=== PATIENT | female | born 1945 | race Caucasian/White ===

== ENCOUNTER 2018-03-17 12:33 | Emergency (ER) | payer MEDICARE, BC, SELFPAY ==
[2018-03-17 13:16] VITALS: BP 149/79; PULSE 68; RESP 16; TEMP 36.6; O2SAT 97
--- NOTE | 2018-03-17 13:28 | ED.GENADUL ---
Disposition Clinical Impression: Sciatica Disposition: HOME Condition: Good Instructions: Sciatica (ED) Additional Instructions: Please take medications as directed. If you notice any worsening of your symptoms, or any new symptoms such as vomiting, diarrhea, fever, chills, shortness of breath, chest pain, numbness, weakness, or fainting , please return immediately to the emergency department for reevaluation. Please follow up with your primary care provider as soon as possible for reassessment and reevaluation. As always, it was a pleasure participating in your medical care today. Prescriptions: Acetaminophen [Tylenol Extra Strength] 1,000 mg PO Q6H 5 Days #60 tab Ibuprofen [Motrin Ib] 600 mg PO Q6H 5 Days #30 tablet Prednisone 50 mg PO DAILY #5 tablet Referrals: Jose Eaton DO [Primary Care Provider] - Medical Decision Making - Medical Decision Making This is a 72-year-old female who presents for evaluation of left buttock pain which radiates into her leg. Signs and symptoms appear consistent with sciatica. Notably reproducible on pinpoint palpation and poking over the sciatic nerve in the left buttock. She does have a mild worsening of her symptoms with a positive straight leg raise. No neurologic findings. Normal sensation, no red flags concerning for cauda equina equina syndrome, or cord compression. She demonstrates maintained strength, and intact sensation. I feel her symptoms correlate clinically well with sciatica at this time of presentation. Due to the patient having a fall 3 weeks ago which I feel is unrelated and unlikely to be the cause of her symptoms abdomen abundance of precaution we will get an x-ray of the lumbar spine, in the hips bilaterally with focus on the left hip. With no red flags noted on exam I feel that with negative imaging she can be safely discharged home with NSAIDs, short dose of steroids, and close follow-up. 4:01 PM The patient's radiology reports have returned, upon my personal review I did not know any acute fractures or significant acute abnormalities. Per virtual radiology, left hip/pelvis demonstrates unremarkable exam for age, no acute fracture or significant abnormality. X-ray of the lumbar spine demonstrates degenerative changes of the lumbar spine mild to moderate scoliosis of the mid lumbar spine with convexity to the left, diffuse degenerative disc and facet disease and lumbar spine, no focal bone destruction or acute fracture. I do feel that the patient is safe for discharge home with close follow-up with her primary care provider. We discussed red flags which returned she understands. I have extensively reviewed the treatment plan and discharge instructions with the patient. I have addressed all patient concerns at this time. The patient was made aware of what symptoms to monitor for that would warrant a return to the emergency department. Discussed the plan with the patient, they demonstrate verbal understanding and agreement with our assessment and plan at this time. History of Present Illness - General Chief complaint: Nk/Back Pain Stated complaint: UNKNOWN Time Seen by Provider: 03/17/18 13:25 - History of Present Illness Initial comments: This is a 72-year-old female who presents for evaluation of left lower leg and buttock pain. The patient states that the last 3-4 days she has had pain in her left buttock which she describes as a burning achy sensation. It does travel down her leg towards her knee. It does not extend to her feet. It is worse with sitting and some movement. It is better with standing. There is no other radiation. She denies any back pain, chest pain, abdominal pain, nausea vomiting or diarrhea. She denies any numbness, tingling, or weakness of her lower extremity. She denies any groin or saddle anesthesia. She denies any bowel or bladder incontinence. She does admit to a fall 3 weeks ago, but had no pain after this event. The patient has taken Advil and this has somewhat improved her symptoms. Past medical history is positive for ileostomy, ulcerative colitis, and bilateral knee replacement. - Related Data Triamcinolone [Kenalog 0.1% Oint] 80 gm TP wkly script 01/27/14 Meloxicam [Mobic] 15 mg PO DAILY #30 tab-cap 12/15/14 Cholecalciferol (Vitamin D3) [Vitamin D3] 1,000 unit PO DAILY #90 tab-cap 06/15/15 Meclizine HCl 25 mg PO BID #40 tab-cap 06/15/15 Cyclobenzaprine HCl 10 mg PO HS PRN #30 tab-cap 06/22/15 Potassium Citrate/Citric Acid [Cytra-K Crystals Packet] 1 each PO BID packet 05/22/17 Proventil Hfa 1 - 2 puff IH Q6H PRN #1 inhaler 07/26/17 PredniSONE [Deltasone] 5 mg PO DAILY #30 tab-cap 10/24/17 Losartan Potassium [Cozaar] 50 mg PO DAILY #90 tab-cap 10/31/17 Acetaminophen [Tylenol Extra Strength] 1,000 mg PO Q6H 5 Days #60 tab 03/17/18 Ibuprofen [Motrin Ib] 600 mg PO Q6H 5 Days #30 tablet 03/17/18 Prednisone 50 mg PO DAILY #5 tablet 03/17/18 Allergies Allergy/AdvReac Type Severity Reaction Status Date / Time adhesive Allergy Unknown Unverified 03/17/18 13:26 Penicillins Allergy Unknown Unverified 03/17/18 13:26 Sulfa (Sulfonamide Allergy Unknown Unverified 03/17/18 13:26 Antibiotics) Review of Systems Other: 10 point review of systems was performed, pertinent positives and negatives are noted in the history of present illness. General Exam - Other Other exam information: 1.Const: Well-nourished, Well-developed, appearing stated age 2.Eyes: PERRL, no conjunctival injection, and symmetrical lids. 3.ENT: Atraumatic external nose and ears. Moist MM. Neck: Symmetric, trachea midline, No thyromegaly. 4.CVS: +S1/S2, No murmurs or gallops. Peripheral pulses 2+ and equal in all extremities. Brisk capillary refill in all extremities. 5.RESP: Unlabored respiratory effort. Clear to auscultation bilaterally. No wheezes rales or rhonchi 6.GI: Soft, Nontender/Nondistended, No hepatosplenomegaly. No guarding or rebound. 7.MSK: Normocephalic/Atraumatic, Extremities w/o deformity or ttp No cyanosis or clubbing, Normal movement of all extremities. Normal strength in all extremities. Positive straight leg raise on the left for worsening of her symptoms. Normal sensation throughout. No calf tenderness. Patellar reflexes are difficult to elicit secondary to bilateral knee replacement however I can elicit a +1 reflex bilaterally. Patient able to ambulate well. Normal gait. No midline tenderness to palpation over the CTLS spine. Normal ROM in flexion, extension, side bend, and rotation. Patient has +5 out of 5 strength in the lower extremities in dorsiflexion and plantarflexion, knee flexion and extension, hip flexion and extension. There is +2 over 2 dorsalis pedis pulses bilaterally. There is normal sensation to the skin with light touch at the foot, knee, and hip. Normal saddle sensation. Good sensation over the deep sural nerve area bilaterally. 8.Skin: Warm, Dry. No rashes or lesions. 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 Sensation grossly intact, no focal neurologic deficits. 10.Psych: (AAO) x3. Appropriate mood and affect Course Vital Signs - 24 hr 03/17/18 13:16 Temperature 36.6 C Pulse 68 Respiratory 16 Rate Blood Pressure 149/79 Pulse Oximetry 97
--- NOTE | 2018-03-17 13:31 | ED.GENADUL_ITS ---
Disposition Clinical Impression: Sciatica Disposition: HOME Condition: Good Instructions: Sciatica (ED) Additional Instructions: Please take medications as directed. If you notice any worsening of your symptoms, or any new symptoms such as vomiting, diarrhea, fever, chills, shortness of breath, chest pain, numbness, weakness, or fainting , please return immediately to the emergency department for reevaluation. Please follow up with your primary care provider as soon as possible for reassessment and reevaluation. As always, it was a pleasure participating in your medical care today. Prescriptions: Acetaminophen [Tylenol Extra Strength] 1,000 mg PO Q6H 5 Days #60 tab Ibuprofen [Motrin Ib] 600 mg PO Q6H 5 Days #30 tablet Prednisone 50 mg PO DAILY #5 tablet Referrals: Jose Eaton DO [Primary Care Provider] - Medical Decision Making - Medical Decision Making This is a 72-year-old female who presents for evaluation of left buttock pain which radiates into her leg. Signs and symptoms appear consistent with sciatica. Notably reproducible on pinpoint palpation and poking over the sciatic nerve in the left buttock. She does have a mild worsening of her symptoms with a positive straight leg raise. No neurologic findings. Normal sensation, no red flags concerning for cauda equina equina syndrome, or cord compression. She demonstrates maintained strength, and intact sensation. I feel her symptoms correlate clinically well with sciatica at this time of presentation. Due to the patient having a fall 3 weeks ago which I feel is unrelated and unlikely to be the cause of her symptoms abdomen abundance of precaution we will get an x-ray of the lumbar spine, in the hips bilaterally with focus on the left hip. With no red flags noted on exam I feel that with negative imaging she can be safely discharged home with NSAIDs, short dose of steroids, and close follow-up. 4:01 PM The patient's radiology reports have returned, upon my personal review I did not know any acute fractures or significant acute abnormalities. Per virtual radiology, left hip/pelvis demonstrates unremarkable exam for age, no acute fracture or significant abnormality. X-ray of the lumbar spine demonstrates degenerative changes of the lumbar spine mild to moderate scoliosis of the mid lumbar spine with convexity to the left, diffuse degenerative disc and facet disease and lumbar spine, no focal bone destruction or acute fracture. I do feel that the patient is safe for discharge home with close follow-up with her primary care provider. We discussed red flags which returned she understands. I have extensively reviewed the treatment plan and discharge instructions with the patient. I have addressed all patient concerns at this time. The patient was made aware of what symptoms to monitor for that would warrant a return to the emergency department. Discussed the plan with the patient, they demonstrate verbal understanding and agreement with our assessment and plan at this time. History of Present Illness - General Chief complaint: Nk/Back Pain Stated complaint: UNKNOWN Time Seen by Provider: 03/17/18 13:25 - History of Present Illness Initial comments: This is a 72-year-old female who presents for evaluation of left lower leg and buttock pain. The patient states that the last 3-4 days she has had pain in her left buttock which she describes as a burning achy sensation. It does travel down her leg towards her knee. It does not extend to her feet. It is worse with sitting and some movement. It is better with standing. There is no other radiation. She denies any back pain, chest pain, abdominal pain, nausea vomiting or diarrhea. She denies any numbness, tingling, or weakness of her lower extremity. She denies any groin or saddle anesthesia. She denies any bowel or bladder incontinence. She does admit to a fall 3 weeks ago, but had no pain after this event. The patient has taken Advil and this has somewhat improved her symptoms. Past medical history is positive for ileostomy , ulcerative colitis, and bilateral knee replacement. - Related Data Triamcinolone [Kenalog 0.1% Oint] 80 gm TP wkly script 01/27/14 Meloxicam [Mobic] 15 mg PO DAILY #30 tab-cap 12/15/14 Cholecalciferol (Vitamin D3) [Vitamin D3] 1,000 unit PO DAILY #90 tab-cap Meclizine HCl 25 mg PO BID #40 tab-cap 06/15/15 Cyclobenzaprine HCl 10 mg PO HS PRN #30 tab-cap 06/22/15 Potassium Citrate/Citric Acid [Cytra-K Crystals Packet] 1 each PO BID packet Proventil Hfa 1 - 2 puff IH Q6H PRN #1 inhaler 07/26/17 PredniSONE [Deltasone] 5 mg PO DAILY #30 tab-cap 10/24/17 Losartan Potassium [Cozaar] 50 mg PO DAILY #90 tab-cap 10/31/17 Acetaminophen [Tylenol Extra Strength] 1,000 mg PO Q6H 5 Days #60 tab 03/17/18 Ibuprofen [Motrin Ib] 600 mg PO Q6H 5 Days #30 tablet 03/17/18 Prednisone 50 mg PO DAILY #5 tablet 03/17/18 Allergies Allergy/AdvReac Type Severity Reaction Status Date / Time adhesive Allergy Unknown Unverified 03/17/18 13:26 Penicillins Allergy Unknown Unverified 03/17/18 13:26 Sulfa (Sulfonamide Allergy Unknown Unverified 03/17/18 13:26 Antibiotics) Review of Systems Other: 10 point review of systems was performed, pertinent positives and negatives are noted in the history of present illness. General Exam - Other Other exam information: 1.Const: Well-nourished, Well-developed, appearing stated age 2.Eyes: PERRL, no conjunctival injection, and symmetrical lids. 3.ENT: Atraumatic external nose and ears. Moist MM. Neck: Symmetric, trachea midline, No thyromegaly. 4.CVS: +S1/S2, No murmurs or gallops. Peripheral pulses 2+ and equal in all extremities. Brisk capillary refill in all extremities. 5.RESP: Unlabored respiratory effort. Clear to auscultation bilaterally. No wheezes rales or rhonchi 6.GI: Soft, Nontender/Nondistended, No hepatosplenomegaly. No guarding or rebound. 7.MSK: Normocephalic/Atraumatic, Extremities w/o deformity or ttp No cyanosis or clubbing, Normal movement of all extremities. Normal strength in all extremities. Positive straight leg raise on the left for worsening of her symptoms. Normal sensation throughout. No calf tenderness. Patellar reflexes are difficult to elicit secondary to bilateral knee replacement however I can elicit a +1 reflex bilaterally. Patient able to ambulate well. Normal gait. No midline tenderness to palpation over the CTLS spine. Normal ROM in flexion, extension, side bend, and rotation. Patient has +5 out of 5 strength in the lower extremities in dorsiflexion and plantarflexion, knee flexion and extension , hip flexion and extension. There is +2 over 2 dorsalis pedis pulses bilaterally. There is normal sensation to the skin with light touch at the foot , knee, and hip. Normal saddle sensation. Good sensation over the deep sural nerve area bilaterally. 8.Skin: Warm, Dry. No rashes or lesions. 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 Sensation grossly intact, no focal neurologic deficits. 10.Psych: (AAO) x3. Appropriate mood and affect Course Vital Signs - 24 hr 03/17/18 13:16 Temperature 36.6 C Pulse 68 Respiratory 16 Rate Blood Pressure 149/79 Pulse Oximetry 97
--- NOTE | 2018-03-17 14:30 | DI.REPORT_ITS ---
SYMPTOM/DIAGNOSIS: LT SCIATIC PAIN, LT PELVIC PAIN LEFT HIP: Two views. No bone or joint abnormality is identified. The soft tissues are unremarkable. IMPRESSION: Unremarkable examination. LUMBAR SPINE: AP, lateral and bilateral oblique views were obtained. There are no priors for comparison. There are five lumbar type vertebral bodies present. There is a moderate left convex scoliosis of the lumbar spine. There is disc space narrowing at L 2-3 through L 5-S 1. Vacuum discs are seen at L 2-3, L 4-5 and L 5-S 1. Endplate osteophytes are present throughout the lumbar spine. There are degenerative changes seen of the facet joints throughout the lumbar spine. No acute fractures or subluxations are seen. There is mild atherosclerosis of the abdominal aorta. IMPRESSION: 1. No acute fracture or subluxation in the lumbar spine. 2. Moderate degenerative changes seen in the lumbar spine.
--- NOTE | 2018-03-17 15:53 | DI.VRAD_ITS ---
EXAM: XR Left Hip With Pelvis When Performed, 2 or 3 Views CLINICAL HISTORY: 72 years old, female; Pain; Hip pain; Left hip; Patient HX: Left sciatic pain, left pelvis pain TECHNIQUE: Two or three views of the left hip, with pelvis when performed. COMPARISON: CR - RIGHT HIP COMPLETE 09/10/2013 10:53 AM FINDINGS: The bony structures are in anatomic alignment. No fracture is present. No radiopaque foreign body is identified. The joint spaces are well maintained. IMPRESSION: Unremarkable exam for age. Dictated and Authenticated by: Pierce Turcios MD. Ordering:JENNIFER PAGE MD
--- NOTE | 2018-03-17 15:53 | DI.VRAD_ITS ---
EXAM: XR Lumbar Spine, 4 or 5 Views CLINICAL HISTORY: 72 years old, female; Pain; Sciatica; Left; Patient HX: Left sciatica, pelvis pain TECHNIQUE: Frontal, lateral and oblique views of the lumbar spine. COMPARISON: CR - LUMBAR SPINE COMPLETE 06/09/2016 3:40 PM FINDINGS: [id number] scoliosis of the midlumbar spine with convexity to the left. Diffuse degenerative disc and facet disease of the lumbar spine. No focal bone destructive process. No evidence of acute fracture. Atherosclerotic calcification of the abdominal aorta without evidence of significant aneurysmal dilatation. IMPRESSION: Degenerative changes of the lumbar spine is outlined above. Please see the final report for further details as to additional followup if clinically indicated. Dictated and Authenticated by: Pierce Turcios MD. Ordering:JENNIFER PAGE MD
== END 2018-03-17 16:12 | disposition home or self-care (01) ==
PROVIDERS: Emergency Provider Student in an Organized Health Care Education/Training Program; PCP Emergency Medicine
DX: M54.32 Sciatica, left side (principal)
CPT/HCPCS: 72110; 73502; 99284 ×2

== ENCOUNTER → 2018-04-25 13:35 | Outpatient (BNVA) | payer MEDICARE, BC, SELFPAY | PROVIDERS: PCP Emergency Medicine; Referring Provider Emergency Medicine; Visit Provider Orthopaedic Surgery | DX: M25.552 Pain in left hip (principal); M70.62 Trochanteric bursitis, left hip | CPT/HCPCS: 20610; 99213; 99214; J1040 ==

== ENCOUNTER 2018-05-22 00:50 | Outpatient (CLI) | payer MEDICARE, BC, SELFPAY ==
--- NOTE | 2018-05-22 11:26 | DI.MAMMO_ITS ---
SYMPTOMS/DIAGNOSIS: SCREENING, Z12.31 MAMMOGRAMS: Mammograms were interpreted according to the usual protocol including computer analysis with CAD system, tomosynthesis and C view imaging. The breast tissue is heterogeneously radiodense, which lowers the sensitivity of the study. When compared with prior images, there has been no definite interval change with note again made of asymmetric increased densities in the upper outer quadrant of the left breast. Benign-appearing calcifications are identified bilaterally and are unchanged. SUMMARY: No evidence of malignancy, category 2. Yearly screening mammography is recommended. Breast density category C. MQSA ASSESSMENT OF FINDINGS: Negative with benign findings. Category 2. Patient will receive a letter notifying them of these results. Bi-RADS category C. The breasts are heterogeneously dense, which may obscure small masses.
== END 2018-05-22 01:10 ==
PROVIDERS: PCP Emergency Medicine; Visit Provider Counselor Addiction (Substance Use Disorder)
DX: Z12.31 Encounter for screening mammogram for malignant neoplasm of breast (principal)
CPT/HCPCS: 77063; 77067

== ENCOUNTER → 2018-06-06 09:58 | Outpatient (BNVA) | payer MEDICARE, BC, SELFPAY | PROVIDERS: PCP Emergency Medicine; Visit Provider Orthopaedic Surgery | DX: M70.61 Trochanteric bursitis, right hip (principal); M70.62 Trochanteric bursitis, left hip | CPT/HCPCS: 99211; 99213 ==

== ENCOUNTER 2018-06-12 00:55 | Outpatient (CLI) | payer MEDICARE, BC, SELFPAY ==
--- NOTE | 2018-06-12 10:10 | DI.MRI_ITS ---
SYMPTOMS/DIAGNOSIS: LEFT HIP PAIN, LEFT HIP BURSITIS, M25.552, M70.62 LEFT HIP MRI: MRI examination of the hip was performed according to the usual protocol. 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 No bony abnormality seen involving the femur or acetabulum. Note is made of abnormal signal at the attachment of the conjoined origin of the long head of the biceps femoris and semitendinosus on the ischial tuberosity; abnormal signal also seen in semimembranosus attachment and, to a lesser degree, in the adductor hattie muscle. The findings suggest a partial attachment tear at the conjoined tendon origin and minimal partial-thickness tear at the semimembranosus origin. No additional significant findings seen in the hip or pelvis. CONCLUSION: Findings consistent with partial-thickness tears of semimembranosus , semitendinosus and biceps femoris long head at the ischial tuberosity. Please see above discussion. No abnormality seen involving the hip joint per se or the proximal femur. No trochanteric bursa signal abnormality seen.
== END 2018-06-12 01:15 ==
PROVIDERS: PCP Emergency Medicine; Visit Provider Orthopaedic Surgery
DX: M25.552 Pain in left hip (principal); M70.62 Trochanteric bursitis, left hip; S76.092A Other specified injury of muscle, fascia and tendon of left hip, initial encounter
CPT/HCPCS: 73721

== ENCOUNTER → 2018-06-18 10:48 | Outpatient (BNVA) | payer MEDICARE, BC, SELFPAY | PROVIDERS: PCP Emergency Medicine; Referring Provider Emergency Medicine; Visit Provider Orthopaedic Surgery | DX: M25.552 Pain in left hip (principal) | CPT/HCPCS: 99213 ==

== ENCOUNTER → 2018-07-30 10:23 | Outpatient (BNVA) | payer MEDICARE, BC, SELFPAY | PROVIDERS: PCP Emergency Medicine; Referring Provider Emergency Medicine; Visit Provider Orthopaedic Surgery | DX: M70.72 Other bursitis of hip, left hip (principal) | CPT/HCPCS: 99213; 99242 ==

== ENCOUNTER 2018-08-01 14:32 | Outpatient (CLI) | payer MEDICARE, BC, SELFPAY ==
[2018-08-01 15:57] LABS: ESR 25 MM/HR (0-30)
== END 2018-08-01 14:52 ==
PROVIDERS: PCP Emergency Medicine; Visit Provider Orthopaedic Surgery
DX: M35.3 Polymyalgia rheumatica (principal); M25.559 Pain in unspecified hip
CPT/HCPCS: 36415; 85652

== ENCOUNTER → 2018-08-27 10:25 | Outpatient (BNVA) | payer MEDICARE, BC, SELFPAY | PROVIDERS: PCP Emergency Medicine; Referring Provider Emergency Medicine; Visit Provider Orthopaedic Surgery | DX: M70.72 Other bursitis of hip, left hip (principal) | CPT/HCPCS: 99213 ==

== ENCOUNTER 2018-10-02 18:43 | Emergency (ER) | payer MEDICARE, BC, SELFPAY ==
[2018-10-02 18:47] VITALS: PULSE 79; RESP 18; TEMP 36.2; O2SAT 98
[2018-10-02 19:08] LABS: Bilirubin Negative (Negative); Blood Trace-intact (Negative); Clarity Sl Cloudy; Glucose Negative (Negative); Ketones Negative (Negative); Leukocyte Esterase Trace (Negative); Nitrite Negative (Negative); Specific Gravity 1.025 (1.005-1.025); Urobilinogen 0.2 EU/dL (Up TO 0.2)
[2018-10-02 19:23] LABS: C & S Indicated? No/Sq. Contamination; Epithelial Cells Many HPF (Negative)
--- NOTE | 2018-10-02 19:33 | ED.GENADUL_ITS ---
Discharge Plan Disposition Patient Disposition: HOME Condition: Good Discharge Details Chief Complaint: FlankPain Clinical Impression: Calculus of distal left ureter Primary Care Provider: Jose Eaton ED Provider: Dimas Haley [place] Meds and New Rx's Prescriptions: Continued cholecalciferol (vitamin D3) [Vitamin D3] 1,000 unit capsule 1,000 unit PO DAILY Qty: 90 RF: 3 acetaminophen [Tylenol Extra Strength] 500 mg tablet 1,000 mg PO Q8H PRN PRNRF: 0 aspirin [Adult Aspirin Regimen] 81 mg tablet,delayed release (DR/EC) 81 mg PO DAILY RF: 0 triamcinolone acetonide 80 GM ointment 80 gm Topical wkly RF: 0 potassium citrate-citric acid [Cytra K Crystals] 1 EACH packet 1 ea PO BID RF: 0 losartan [Cozaar] 50 MG tablet 50 mg PO DAILY Qty: 90 RF: 4 Ibuprofen [Motrin Ib] 200 MG tablet 600 mg PO Q6H 5 Days Qty: 30 RF: 0 Discharge Instructions Instructions: Renal Colic (ED) Additional Instructions: There is a 4 mm kidney stone in the left distal ureter that should pass on its own. Stay hydrated. Use Tylenol or Motrin as needed for pain. Follow-up with your primary care or with urology next week if continued symptoms. Return to the ED if you develop severe pain, vomiting, fever. Referrals: Jose Eaton, [Primary Care Provider] - Phill Meade MD [ [facility] STAFF PHYSICIAN] - Medical Decision Making Patient's first urine sample is contaminated. However, in speaking with her and examining her not convinced that this is urinary at all. We discussed straight cath which she is agreeable to. Place IV and check labs and get a CT of the abdomen pelvis. Patient's laboratory studies are unremarkable. Her white count is normal. Her kidney function is baseline. Straight cath urinalysis is negative. CT scan of the abdomen pelvis shows a 4 mm left distal ureter calculus with no hydronephrosis. Patient is comfortable. She has been comfortable describes it more as a pressure feeling. She has no fever or white count. She has no evidence of infection on urinalysis. She will be discharged home to continue Tylenol or Motrin as needed for discomfort. Follow-up with her primary care or ueology next week if still having symptoms. Return to ED if fever, vomiting, uncontrolled pain. Lab Data Lab results reviewed: Yes I reviewed the patient's lab results. HPI General Mode of arrival: ambulatory . Date/Time Provider Initiated Documentation: 10/02/18 19:32 . Limitations to Documentation: no limitations . Information obtained by: patient . HPI Narrative: Patient presents to ED with complaints of lower abdominal/pelvic pain and low back pain. Symptoms started a day ago. She does not really have any urinary symptoms associated with it. She has no nausea/vomiting. She has an ostomy from the 70s and has had no change in output. She has not had fevers. Not sure if she has had chills or not. Does not really feel like kidney stone pain. Does not really feel like urinary pain to her. She just uncomfortable and came in for evaluation. Related Data Home Medications Medication Instructions Recorded Confirmed triamcinolone acetonide 80 gm TOPICAL wkly script 01/27/14 10/02/18 potassium citrate-citric acid 1 ea PO BID packet 05/22/17 10/02/18 [Cytra K Crystals] losartan [Cozaar] 50 mg PO DAILY #90 tab-cap 10/31/17 10/02/18 Ibuprofen [Motrin Ib] 600 mg PO Q6H 5 Days #30 tab 03/17/18 10/02/18 cholecalciferol (vitamin D3) 1,000 1,000 unit PO DAILY #90 tab-cap 05/21/18 10/02/18 unit capsule aspirin 81 mg tablet,delayed 81 mg PO DAILY 06/06/18 10/02/18 release acetaminophen 500 mg tablet 1,000 mg PO Q8H PRN PRN tab 07/30/18 10/02/18 Previous Rx's Medication Instructions Recorded losartan [Cozaar] 50 mg PO DAILY #90 tab-cap 10/31/17 Ibuprofen [Motrin Ib] 600 mg PO Q6H 5 Days #30 tab 03/17/18 cholecalciferol (vitamin D3) 1,000 1,000 unit PO DAILY #90 tab-cap 05/21/18 unit capsule Allergies Allergy/AdvReac Type Severity Reaction Status Date / Time adhesive Allergy Unknown Verified 10/02/18 20:44 Penicillins Allergy Unknown Verified 10/02/18 20:44 Sulfa (Sulfonamide Allergy Unknown Verified 10/02/18 20:44 Antibiotics) General Stated Complaint: FlankPain SARAHY: 3 Review of Systems Constitutional Reports chills, Denies fever(s), Denies headache(s), Denies lethargy and Denies malaise Eyes Denies change in vision and Denies eye pain ENT Denies otalgia, Denies facial pain, Denies headache(s), Denies neck pain and Denies sore throat Cardiovascular Denies chest pain, Denies diaphoresis, Denies syncope, Denies edema and Denies dyspnea Respiratory Denies cough and Denies dyspnea Gastrointestinal Reports abdominal pain, Denies bloating, Denies diarrhea, Denies nausea and Denies vomiting Genitourinary Denies hematuria, Denies urinary frequency, Denies dysuria, Denies pelvic pain and Reports urinary urgency Musculoskeletal Reports back pain, Denies neck pain and Denies numbness Integumentary/Breasts Denies rash Neurologic Denies syncope, Denies headache(s), Denies focal weakness and Denies numbness PFSH Medical History HTN (hypertension) (Chronic) Surgical History Hysterectomy, Laproscopic (~1980) Ileostomy (~1974) Replacement of total knee joint Stent placement Total colectomy (~1974) Vein stripping Social History Smoking and Tabacco status: Never Pasive smoking exposure: No Exam Const General: cooperative, comfortable and no acute distress Orientation: alert and oriented x3 HENMT Head: normocephalic and atraumatic Mouth: moist mucous membranes Neck Neck: trachea midline and supple Resp Effort & Inspection: normal respiratory effort Auscultation: clear to auscultation bilaterally Cardio Rate: regular rate Rhythm: regular rhythm Heart Sounds: S1 normal and S2 normal GI Palpation: soft, not firm, no guarding and nontender Back/Spine/Pelvis Back: no CVA tenderness Skin Rashes: no rashes Neuro General: alert, oriented x3, no focal motor deficits and CN's II-XI intact bilaterally Cognition: normal cognition Speech: speech normal Gait: normal gait Extrem General: no clubbing, cyanosis or edema Course Vital Signs Temperature 97.2 F L 10/02/18 18:47 Pulse 79 03/13/19 18:47 Respiratory Rate 18 10/02/18 18:47 Pulse Oximetry 98 10/02/18 18:47 Temperature 97.2 F L 10/02/18 18:47 Temperature Source Skin 10/02/18 18:47 Pulse 79 10/02/18 18:47 Respiratory Rate 18 10/02/18 18:47 Blood Pressure Position Sitting 10/02/18 18:47 Pulse Oximetry 98 10/02/18 18:47 Oxygen Delivery Method Room Air 10/02/18 18:47 Oxygen Flow Rate 0 10/02/18 18:47 Pain Level 5 10/02/18 18:47 Lab/Test Results Lab/Test Results: Laboratory Tests Range/Units 10/02/18 18:57 Urine Color (Yellow) Yellow Urine Clarity Sl cloudy Urine pH (5-8) 6.0 Ur Specific [place] (1.005-1.025) 1.025 Urine Protein (Negative) mg/dL Negative Urine Ketones (Negative) mg/dL Negative Urine Blood (Negative) Trace-intact H Urine Nitrite (Negative) Negative Urine Bilirubin (Negative) Negative Urine Urobilinogen (Up TO 0.2) EU/dL 0.2 Ur Leukocyte Esterase (Negative) Trace H Urine RBC Not Applicable Urine WBC Not Applicable Ur Epithelial Cells (Negative) HPF Many Urine Crystals Not Applicable Urine Bacteria Not Applicable Urine Mucus Not Applicable Ur Culture Indicated? No/sq. contamination Urine Glucose (Negative) mg/dL Negative
[2018-10-02] MEDS: Normal Saline 1,000 ML 1000 ML IV (19:50)
[2018-10-02 19:57] LABS: Abs Immature Grans 0.03 k/cumm (0.0-0.09); Absolute Basophil Count 0.03 k/cumm (0.0-0.2); Absolute Eosinophil Count 0.23 k/cumm (0.0-0.7); Absolute Lymphocyte Count 1.64 k/cumm (1.2-3.4); Absolute Monocyte Count 0.58 k/cumm (0.11-0.7); Absolute Neutrophil Count 2.73 k/cumm (1.2-6.7); Basophils % 0.6; Eosinophils % 4.4; HCT 42.2 % (36.0-46.0); HGB 14.4 g/dL (12.0-15.5); Immature Grans % 0.6; Lymphocytes % 31.3; Mean Corp. HGB Concentration 34.1 g/dL (32.0-36.0); Mean Corpuscular Volume 90.9 fL (80-95); Mean Platelet Volume 9.6 fL (8.0-11.0); Monocytes % 11.1; Platelet Count 152 x1000/uL (130-400); RBC 4.64 m/cumm (4.00-5.20); RBC Distribution Width 13.6 % (11.7-14.6); White Blood Cell Count 5.24 k/cumm (4.4-10.8)
[2018-10-02 20:10] LABS: ALT 25 U/L (12-78); AST 27 U/L (15-37); Albumin 3.6 g/dL (3.4-5.0); Alkaline Phosphatase 75 U/L (46-116); Anion Gap 7.7 mmol/L (3-11); BUN 23 mg/dL (7-18); Bilirubin, Total 0.6 mg/dL (0.2-1.0); CO2 28.3 mmol/L (21.0-32.0); CREATININE 1.05 mg/dL (0.55-1.02); Chloride 103 mmol/L (98-107); Estimated GFR 51.52 (mL/min/1.73m2); Glucose 96 mg/dL (70-100); Lipase 137 U/L (73-393); Potassium 3.8 mmol/L (3.5-5.1); Sodium 139 mmol/L (136-145); Total Protein 6.9 g/dL (6.4-8.2)
[2018-10-02 20:15] LABS: Bilirubin Negative (Negative); Blood Trace-intact (Negative); Clarity Clear; Glucose Negative (Negative); Ketones Negative (Negative); Leukocyte Esterase Negative (Negative); Nitrite Negative (Negative); Specific Gravity 1.025 (1.005-1.025); Urobilinogen 0.2 EU/dL (Up TO 0.2); pH 5.5 (5-8)
[2018-10-02 20:16] LABS: Calcium 9.2 mg/dL (8.5-10.1)
[2018-10-02 20:24] LABS: Epithelial Cells Few HPF (Negative); WBC Negative HPF (0-5)
[2018-10-02 20:25] LABS: Bacteria Few HPF (Negative); C & S Indicated? No; Casts Negative LPF (Negative); Crystals Negative HPF (Negative); Mucus Negative (Negative); Other Cells Negative (Negative)
[2018-10-02] MEDS: Omnipaque 350 MG/ML 100 ML BTL IJ (20:32)
--- NOTE | 2018-10-02 20:40 | DI.CT_ITS ---
SYMPTOM/DIAGNOSIS: LOW ABDOMINAL PAIN CT ABDOMEN AND PELVIS: CT scan of the abdomen and pelvis was performed following the uneventful administration of intravenous contrast material. Comparison examination is 08/05/10. No acute findings are seen in the lung bases. The liver is normal in size. No suspicious hepatic masses seen. The portal superior mesenteric and splenic veins are patent. The gallbladder is negative. No biliary ductal dilatation is seen The pancreas, spleen and adrenal glands are unremarkable. The kidneys show no evidence of a solid renal mass. There is a 4 mm stone at the left ureteral vesicular junction causing mild left hydronephrosis. No other renal stones are present. The urinary bladder is intact. The patient appears to be status post hysterectomy. There is atherosclerosis of the abdominal aorta but no aneurysmal dilatation. No significant abdominal or pelvic adenopathy, ascites or pneumoperitoneum seen. The patient is status post colectomy. There is a right lower quadrant ostomy again noted. Degenerative changes are present in the spine. IMPRESSION: 4 mm left UVJ calculus with mild hydronephrosis.
--- NOTE | 2018-10-02 20:52 | DI.VRAD_ITS ---
EXAM: CT Abdomen and Pelvis With Contrast EXAM DATE/TIME: 10/02/2018 7:36 PM CLINICAL HISTORY: 73 years old, female; Pain; Abdominal pain; Localized; Lower; Patient HX: Left lower abdominal pain. Appendix removed years ago, ileostomy 1975. TECHNIQUE: Axial computed tomography images of the abdomen and pelvis with intravenous contrast. All CT scans at this facility use at least one of these dose optimization techniques: automated exposure control; mA and/or kV adjustment per patient size (includes targeted exams where dose is matched to clinical indication); or iterative reconstruction. Coronal and sagittal reformatted images were created and reviewed. CONTRAST: Contrast Material: 100 ml of [id number]; Contrast Route: iv COMPARISON: CR LEFT HIP COMPLETE POST REDUC 03/17/2018 1:28 PM FINDINGS: Lower thorax: No acute findings. ABDOMEN: Liver: Normal. No mass. Gallbladder and bile ducts: Normal. No calcified stones. No ductal dilation. Pancreas: Normal. No ductal dilation. Spleen: Normal. No splenomegaly. Adrenals: Normal. No mass. Kidneys and ureters: 4 mm calculus left distal ureter without left hydronephrosis. Stomach and bowel: Status post colectomy. No bowel obstruction or inflammation. Appendix: No evidence of appendicitis. PELVIS: Bladder: Unremarkable as visualized. Reproductive: Status post hysterectomy. ABDOMEN and PELVIS: Intraperitoneal space: Normal. No free air. No significant fluid collection. Bones/joints: Degenerative change of the spine. Soft tissues: Unremarkable. Vasculature: Normal. No abdominal aortic aneurysm. Lymph nodes: Normal. No enlarged lymph nodes. Other findings: A right lower quadrant ostomy. IMPRESSION: 4 mm calculus left distal ureter without left hydronephrosis. Dictated and Authenticated by: Noah Leahy MD. Ordering:ALEJANDRO Cochran MD
[2018-10-02 21:15] VITALS: BP 167/84; PULSE 83; RESP 20; TEMP 36.3; O2SAT 94
== END 2018-10-02 21:30 | disposition home or self-care (01) ==
PROVIDERS: Emergency Provider Emergency Medicine; PCP Emergency Medicine
DX: N20.1 Calculus of ureter (principal); I10 Essential (primary) hypertension
CPT/HCPCS: 36415; 51701; 80053; 83690; 96360; 96361; 99285; 74177; 81003; 81015; 85025; 99283; 99284; J3490

== ENCOUNTER → 2018-11-14 09:26 | Outpatient (BNVA) | payer MEDICARE, BC, SELFPAY | PROVIDERS: PCP Emergency Medicine; Visit Provider Orthopaedic Surgery | DX: Z47.1 Aftercare following joint replacement surgery (principal); Z96.653 Presence of artificial knee joint, bilateral; M54.5 Low back pain; G89.29 Other chronic pain | CPT/HCPCS: 99213; 99214 ==

== ENCOUNTER 2019-03-20 05:23 | Observation (INO) | payer MEDICARE, BC, SELFPAY ==
[2019-03-20] VITALS (44 sets, daily range): BP systolic 125–159; BP diastolic 63–85; PULSE 63–93; RESP 4–23; TEMP 36.3–36.9; O2SAT 92–100
--- NOTE | 2019-03-20 05:41 | ED.GENADUL_ITS ---
Discharge Plan Disposition Patient Disposition: [facility] INPATIENT Condition: Good Discharge Details Chief Complaint: Chest Pain Clinical Impression: Left arm pain, DIAMOND (dyspnea on exertion) Primary Care Provider: Jose Eaton ED Provider: Dimas Haley [place] Meds and New Rx's Prescriptions: No Action cholecalciferol (vitamin D3) [Vitamin D3] 1,000 unit capsule 1,000 unit PO DAILY Qty: 90 RF: 3 amlodipine 5 mg tablet 5 mg PO DAILY Qty: 30 RF: 3 aspirin [Adult Aspirin Regimen] 81 mg tablet,delayed release (DR/EC) 81 mg PO DAILY RF: 0 triamcinolone acetonide 80 GM ointment 80 gm Topical wkly RF: 0 potassium citrate-citric acid [Cytra K Crystals] 1 EACH packet 1 ea PO BID RF: 0 losartan [Cozaar] 50 mg tablet 50 mg PO BID Qty: 180 RF: 3 Ibuprofen [Motrin Ib] 200 MG tablet 600 mg PO Q6H 5 Days Qty: 30 RF: 0 Medical Decision Making Patient presenting with left arm tightness that radiated into her neck and jaw. Initially happened yesterday with exertion and resolved after hours. Recurred this morning at rest. Has been having shortness of breath with exertion. Currently in the ED asymptomatic. 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 Last EKG in 2009 without evidence of fascicular block. There are no acute ST changes. She is scheduled for lab work, chest x-ray and stress testing next week. This may be an atypical presentation for cardiac disease though she has no history of such. She does have history of hypertension and obesity as well as advanced age. IV established. Will give aspirin. Denies pressure or tightness currently. Laboratories and chest x-ray ordered. Patient's laboratory studies are unremarkable. She is not anemic. BUN and creatinine are little bit elevated but she does have history of chronic kidney disease and is not far from baseline. First troponin is negative. Chest x-ray per my review and preliminary radiology read unremarkable. Her calculated HEART score is a 4. Patient should be brought in for observation and serial enzymes. Consider ECHO and stress testing prior to discharge. Case discussed with hospitalist, Dr. Hills, who agrees. Patient and aware of plan and agreeable as well. Medical Records Medical records reviewed: Yes I reviewed the patient's medical records. Lab Data Lab results reviewed: Yes I reviewed the patient's lab results. ECG Data Attestation: I personally reviewed and interpreted this ECG (s) as follows: Prior ECG tracings: not available for review Interpretation: Normal sinus rhythm at a rate of 83. Prolonged QRS with left axis and left anterior fascicular block. No ST changes noted. HPI General Mode of arrival: ambulatory . Date/Time Provider Initiated Documentation: 03/20/19 05:37 . Limitations to Documentation: no limitations . Information obtained by: patient, RN notes reviewed and old records reviewed . HPI Narrative: Patient presents to ED with left arm tightness that radiated into her left jaw and neck. Patient reports that for the last month or so she has had shortness of breath with exertion. That has gradually been getting worse. She saw her primary care who has scheduled her for labs, chest x-ray, stress testing next week. Yesterday while walking she developed left arm tightness. She did not experience chest pain or pressure. She did not experience shortness of breath but notes that she was not walking very long prior to getting this tightness in her arm. It eventually went away in the evening. It recurred this morning while she was sleeping and it woke her up. This time it radiated up into her neck and jaw. She did not feel short of breath. She is not lightheaded, diaphoretic, nauseated. She still is not having chest pain. The tightness at this point has resolved. She still does not feel right but cannot complain of pressure or tightness at this time. She notes that she has been extremely fatigued and generally weak over the last few months. Related Data Home Medications Medication Instructions Recorded Confirmed triamcinolone acetonide 80 gm TOPICAL wkly script 01/27/14 03/20/19 potassium citrate-citric acid 1 ea PO BID packet 05/22/17 03/20/19 [Cytra K Crystals] Ibuprofen [Motrin Ib] 600 mg PO Q6H 5 Days #30 tab 03/17/18 03/20/19 cholecalciferol (vitamin D3) 1,000 1,000 unit PO DAILY #90 tab-cap 05/21/18 03/20/19 unit capsule aspirin 81 mg tablet,delayed 81 mg PO DAILY 06/06/18 03/20/19 release losartan 50 mg tablet 50 mg PO BID #180 tab-cap 01/22/19 03/20/19 amlodipine 5 mg tablet 5 mg PO DAILY #30 tab 02/07/19 03/20/19 Previous Rx's Medication Instructions Recorded Ibuprofen [Motrin Ib] 600 mg PO Q6H 5 Days #30 tab 03/17/18 cholecalciferol (vitamin D3) 1,000 1,000 unit PO DAILY #90 tab-cap 05/21/18 unit capsule losartan 50 mg tablet 50 mg PO BID #180 tab-cap 01/22/19 amlodipine 5 mg tablet 5 mg PO DAILY #30 tab 02/07/19 Allergies Allergy/AdvReac Type Severity Reaction Status Date / Time adhesive Allergy Unknown Verified 03/20/19 05:37 Penicillins Allergy Unknown Verified 03/20/19 05:37 Sulfa (Sulfonamide Allergy Unknown Verified 03/20/19 05:37 Antibiotics) felodipine AdvReac daily Verified 03/20/19 05:37 h/a's and upset stomach General Stated Complaint: Chest Pain SARAHY: 2 Review of Systems Review of Systems 05/05 Review of Systems completed and is negative except as stated above in HPI (Systems reviewed: Const, Eyes, ENT, Resp, CV, GI, , MSK, Skin, Neuro) [facility] Medical History HTN (hypertension) (Chronic) Obesity (Chronic) Ulcerative colitis (Inactive) colectomy Surgical History (Updated 03/20/19 @ 06:00 by Dimas Haley MD) Hysterectomy, Laproscopic (~1980) Ileostomy (~1974) Replacement of total knee joint left-1995 WITH REVISION 2004; right-1996 with revision 2009 Stent placement left sided ureteral stent 2003 Total colectomy (~1974) Vein stripping 2002 Social History Smoking/Tobacco Use Status: Never Alcohol Intake: never Drug use: Never Substance use type: does not use Do you feel safe in your relationship?: Yes Exam Narrative Exam Narrative: Vitals: Afebrile. Hypertensive otherwise normal vital signs. Oxygen saturation normal at 99. Const: Obese female in NAD. HEENT: NC/AT. Normal facial exam. Eyes: Normal conjunctiva and sclera. Neck: Supple. Trachea midline. Lungs: Normal respiratory effort. Lungs are clear. Cor: RRR without murmur/gallop. Strong equal pulses throughout. GI: Soft. NT/ND. No guarding or rebound. Neuro: A+O x 3. CN grossly in tact. Good strength and no focal deficit. Ext: No C/C/E. No calf tenderness. Skin: Warm and dry without rash. Course Vital Signs Temperature 98.4 F 03/20/19 05:33 Pulse 82 03/20/19 05:33 Respiratory Rate 15 03/20/19 05:33 Blood Pressure 159/78 H 03/20/19 05:33 Pulse Oximetry 99 03/20/19 05:33 Temperature 98.4 F 03/20/19 05:33 Temperature Source Skin 03/20/19 05:33 Pulse 82 03/20/19 05:33 Respiratory Rate 15 03/20/19 05:33 Respiratory Effort 03/20/19 05:38 Blood Pressure 159/78 H 03/20/19 05:33 Blood Pressure Position Sitting 03/20/19 05:33 Pulse Oximetry 99 03/20/19 05:33 Oxygen Delivery Method Room Air 03/20/19 05:33 Oxygen Flow Rate 0 03/20/19 05:33
--- NOTE | 2019-03-20 06:10 | DI.RAD_ITS ---
SYMPTOM/DIAGNOSIS: SOB CHEST X-RAY: PA AND LATERAL. Comparison 08/24/12 The heart is normal in size. The lungs are clear. The mediastinal structures and pleura appear intact. CONCLUSION: Normal chest.
[2019-03-20] MEDS: Aspirin 81 MG CHEW 324 MG CH (06:20)
[2019-03-20 06:23] LABS: Abs Immature Grans 0.01 k/cumm (0.0-0.09); Absolute Basophil Count 0.03 k/cumm (0.0-0.2); Absolute Eosinophil Count 0.29 k/cumm (0.0-0.7); Absolute Lymphocyte Count 2.22 k/cumm (1.2-3.4); Absolute Monocyte Count 0.54 k/cumm (0.11-0.7); Absolute Neutrophil Count 2.36 k/cumm (1.2-6.7); Basophils % 0.6; Eosinophils % 5.3; HCT 40.2 % (36.0-46.0); Immature Grans % 0.2; Lymphocytes % 40.7; Mean Corp. HGB Concentration 34.8 g/dL (32.0-36.0); Mean Corpuscular Hemoglobin 30.5 pg (27.0-33.0); Mean Corpuscular Volume 87.6 fL (80-95); Mean Platelet Volume 9.5 fL (8.0-11.0); Monocytes % 9.9; Neutrophils % 43.3; Platelet Count 172 x1000/uL (130-400); RBC 4.59 m/cumm (4.00-5.20); RBC Distribution Width 13.8 % (11.7-14.6); White Blood Cell Count 5.45 k/cumm (4.4-10.8)
--- NOTE | 2019-03-20 06:34 | DI.VRAD_ITS ---
EXAM: XR Chest, 2 Views EXAM DATE/TIME: 03/20/2019 5:54 AM CLINICAL HISTORY: 73 years old, female; Shortness of breath TECHNIQUE: Imaging protocol: XR of the chest, 2 views. COMPARISON: CR CHEST 2 VIEWS PA,LAT 08/24/2012 11:21 AM FINDINGS: Lungs: Mild hyperinflation. No consolidative pneumonia or pulmonary edema. Pleural space: Unremarkable. No pleural effusion. No pneumothorax. Heart/Mediastinum: Cardiac size normal. Vasculature: Aortic atherosclerotic calcification. Bones/joints: Mild degenerative changes noted throughout the spine. S-shaped thoracolumbar scoliotic curvature. IMPRESSION: Mild hyperinflation. No acute process. Stable appearance. Dictated and Authenticated by: Rustam Rogers MD. Ordering:ALEJANDRO Cochran MD
[2019-03-20 06:36] LABS: ALT 24 U/L (14-59); AST 20 U/L (15-37); Albumin 3.6 g/dL (3.4-5.0); Alkaline Phosphatase 81 U/L (46-116); Anion Gap 11.1 mmol/L (3-11); BUN 33 mg/dL (7-18); Bilirubin, Total 0.7 mg/dL (0.2-1.0); CO2 23.9 mmol/L (21.0-32.0); CREATININE 1.49 mg/dL (0.55-1.02); Calcium 8.8 mg/dL (8.5-10.1); Chloride 104 mmol/L (98-107); Glucose 102 mg/dL (70-100); Magnesium 1.6 mg/dL (1.8-2.4); Potassium 4.2 mmol/L (3.5-5.1); Sodium 139 mmol/L (136-145); TSH (W/Ref FT4) 2.92 uIU/mL (0.36-3.74); Total Protein 6.9 g/dL (6.4-8.2)
[2019-03-20 06:37] LABS: Troponin I < 0.05 ng/mL (0.00-0.06)
[2019-03-20] MEDS: Enoxaparin 40 MG/0.4 ML SYR SC (09:20)
--- NOTE | 2019-03-20 09:31 | PDOC.CMPRO ---
Care Management Progress Note CM consult due to report of anticipated prior authorization for ordered tests per MD: Echo and MPI (anticipated tomorrow). CM spoke with Bina of Radiology who reported speaking to the PCP and sharing that no prior authorization would be required.
[2019-03-20 10:30] LABS: Troponin I < 0.05 ng/mL (0.00-0.06)
--- NOTE | 2019-03-20 10:45 | MERGE_ITS ---
*[facility]* *[facility]* [address] [place] [address] Date of study: 03/20/2019 Transthoracic Echocardiography M-mode, complete 2D, complete spectral Doppler, and color Doppler *STUDY CONCLUSIONS* Summary: 1. Left ventricle: The estimated ejection fraction was 65%. Wall motion was normal; there were no regional wall motion abnormalities. There was no evidence of elevated ventricular filling pressure by Doppler parameters. 2. Aortic valve: There was trivial regurgitation. 3. Right ventricle: The cavity size was normal. Wall thickness was normal. Systolic function was normal. 4. Atrial septum: No defect or patent foramen ovale was identified. 5. Pulmonary arteries: Pulmonary systolic pressure was in the range of 30mm Hg to 40mm Hg. 6. Inferior vena cava: The vessel was patent and normal in size. The respirophasic diameter changes were in the normal range (greater than or equal to 50%), consistent with normal central venous pressure. *PATIENT PRESENTATION* Height: 157.5cm (62in ) S/D Pressure: 128 / 75 Weight: 96.6kg (212.6lb ) BSA: 2.11m^2 Test start time: 10:55 AM. Test stop time: 11:50 AM. 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 This study was interpreted by [facility]. Pertinent images and digital data are archived for permanent storage and are available for subsequent review. No prior study was available for comparison. Study status: Routine. Transthoracic echocardiography. M-mode, complete 2D, complete spectral Doppler, and color Doppler. A Transthoracic Echocardiogram was performed. Scanning was performed from the parasternal, apical, subcostal, and suprasternal notch acoustic windows. Images were obtained using an [id number] cardiac ultrasound machine. Image quality was adequate. Study completion: The patient tolerated the procedure well. History: PMH: DIAMOND. *CARDIAC ANATOMY* Left ventricle: The estimated ejection fraction was 65%. Wall motion was normal; there were no regional wall motion abnormalities. Diastolic parameters were normal. There was no evidence of elevated ventricular filling pressure by Doppler parameters. Aortic valve: Doppler: There was no stenosis. There was trivial regurgitation. VTI ratio of LVOT to aortic valve: 0.66. Valve area (VTI): 2.5cm^2. Indexed valve area (VTI): 1.2cm^2/m^2. Peak velocity ratio of LVOT to aortic valve: 0.67. Valve area (Vmax): 2.5cm^2. Indexed valve area (Vmax): 1.2cm^2/m^2. Mean velocity ratio of LVOT to aortic valve: 0.63. Valve area (Vmean): 2.4cm^2. Indexed valve area (Vmean): 1.1cm^2/m^2. Mean gradient (S): 5.6mm Hg. Peak gradient (S): 9mm Hg. Aorta: Aortic root: The aortic root was mildly dilated. Ascending aorta: The ascending aorta was mildly dilated. Mitral valve: Doppler: There was no evidence for stenosis. There was no significant regurgitation. Valve area by pressure half-time: 4.3cm^2. Indexed valve area by pressure half-time: 2cm^2/m^2. Peak gradient (D): 3.4mm Hg. Left atrium: The atrium was normal in size. Atrial septum: No defect or patent foramen ovale was identified. Right ventricle: The cavity size was normal. Wall thickness was normal. Systolic function was normal. Pulmonic valve: Doppler: There was no evidence for stenosis. There was mild regurgitation. Tricuspid valve: Doppler: There was trivial regurgitation. Pulmonary artery: Poorly visualized. Pulmonary systolic pressure was in the range of 30mm Hg to 40mm Hg. Right atrium: The atrium was normal in size. Pericardium: There was no pericardial effusion. Systemic veins: Inferior vena cava: Well visualized. The vessel was patent and normal in size. The respirophasic diameter changes were in the normal range (greater than or equal to 50%), consistent with normal central venous pressure. Baseline ECG: Normal sinus rhythm. Measurements Left ventricle Value Reference LV ID, ED, PLAX 4.1 cm 3.5 - 6.0 LV ID, ES, PLAX 2.8 cm 2.1 - 4.0 LV PW thickness, ED, PLAX 1.2 cm LV end-diastolic volume, 1-p A2C 141 ml LV ejection fraction, 1-p A2C 72 % LV end-diastolic volume, 1-p A4C 88 ml LV ejection fraction, 1-p A4C 74 % LV e', lateral 0.073 m/sec LV E/e', lateral 13 LV e', medial 0.074 m/sec LV E/e', medial 12 LV e', average 0.074 m/sec LV E/e', average 13 Ventricular septum Value Reference IVS thickness, ED, PLAX 1.3 cm LVOT Value Reference LVOT ID, A-P 2.2 cm LVOT area 3.7 cm^2 LVOT peak velocity, S 1 m/sec LVOT mean velocity, S 0.73 m/sec LVOT VTI, S 21.8 cm LVOT peak gradient, S 4 mm Hg LVOT mean gradient, S 2.4 mm Hg Stroke volume (SV), LVOT DP 81 ml Stroke index (SV/bsa), LVOT DP 39 ml/m^2 Aortic valve Value Reference Aortic valve peak velocity, S 1.5 m/sec Aortic valve mean velocity, S 1.2 m/sec Aortic valve VTI, S 33.0 cm Aortic mean gradient, S 5.6 mm Hg Aortic peak gradient, S 9 mm Hg VTI ratio, LVOT/AV 0.66 Aortic valve area, VTI 2.5 cm^2 Velocity ratio, peak, LVOT/AV 0.67 Aortic valve area, peak velocity 2.5 cm^2 Velocity ratio, mean, LVOT/AV 0.63 Aortic valve area, mean velocity 2.4 cm^2 Aortic valve area/bsa, mean velocity 1.1 cm^2/m^2 Aorta Value Reference Aortic root ID, ED 3.7 cm Ascending aorta ID, A-P, S 3.7 cm Left atrium Value Reference LA ID, A-P, ES 3.3 cm LA ID/bsa, A-P 1.6 cm/m^2 <=2.2 LA volume, ES, 2-p 54 ml LA volume/bsa, ES, 2-p 25 ml/m^2 LA/aortic root ratio 0.89 Mitral valve Value Reference Mitral E-wave peak velocity 0.93 m/sec Mitral A-wave peak velocity 1.28 m/sec Mitral deceleration time 177 ms 150 - 230 Mitral pressure half-time 51 ms Mitral peak gradient, D 3.4 mm Hg Mitral E/A ratio, peak 0.72 Mitral valve area, PHT, DP 4.3 cm^2 Tricuspid valve Value Reference Tricuspid regurg peak velocity 2.9 m/sec Tricuspid peak RV-RA gradient 34.8 mm Hg Right atrium Value Reference RA area, ES, A4C (H) 22.3 cm^2 8.3 - 19.5 Legend: (L) and (H) christina values outside specified reference range. I have personally reviewed the images and have reviewed and edited the reported findings. Electronically signed by Noah Mccabe MD 03/20/2019 12:51
[2019-03-20 11:09] LABS: NT-proBNP 221 pg/mL
[2019-03-20] MEDS: MAGNESIUM SULFATE 2 GM/50 ML BAG IVPB (12:18)
--- NOTE | 2019-03-20 15:21 | HPE_ITS ---
Date of service: 03/20/19 Time of Service: 15:21 Assessment and Plan (1) Atypical chest pain: Current visit: Yes Status: Acute Monitor on tele. R/o ACS. Planned for stress test tomorrow. For now, continue asa, check lipids. (2) Essential hypertension: Current visit: No Status: Chronic Continue home therapy (3) CKD (chronic kidney disease), stage III: Current visit: Yes Status: Acute Appears to be near baseline. I think that the worsening of creatinine since September likely happened due to addition of an ARB. (4) Pulmonary hypertension: Current visit: Yes Status: Acute Needs a sleep study as outpatient (5) DVT prophylaxis: Current visit: Yes Status: Acute Lovenox (6) Discharge planning issues: Current visit: Yes Status: Acute Full code Likely discharge home tomorrow History of Present Illness Chief Complaint: L arm and shoulder pain Narrative: 73 year old female with PMHx of hypertension, obesity, suspected sleep apnea, UC s/p ileostomy, who presented to [facility] ED today complaining of L arm pain that woke her up from sleep and radiated up to her shoulder, neck, jaw, and upper back. She had a similar discomfort in her left arm, but without radiation, yesterday, and it lasted for 3 - 4 hours. Today, it woke her up from sleep. The patient states that 10 days ago she had an episode of shortness of breath like she has never had before, which happened after climbing a hill that she usually climbs. This episode was not accompanied by any dizziness, chest wendi n/shoulder pain/arm pain, or nausea. It has not recurred since. Additionally, the patient describes progressively worsening fatigue for the last 2 months which is separate from shortness of breath. She thinks that she sleeps well at night, but has already been recommended to have a sleep study as outpatient by her PCP. Her PCP (Dr Eaton) saw her 2 days ago and was already planning on the patie nt undergoing stress testing next Sunday. However, the patient's symptoms brought her to ER today. In ER, she was found to have a new left anterior fascicular block. Her troponin and workup otherwise were negative. Given the patient's story, angina was suspected, and hospitalists were called for further evaluation and treatment. The patient is planned to have a stress test in the morning tomorrow. Review of Systems Review of Systems 12 systems reviewed. Pertinent positives and negatives are as per HPI. Additionally, the patient is not sure if she snores. She has had some neck discomfort lately. [facility] Medical History (Updated 03/20/19 @ 16:33 by Kiley Hills MD) CKD (chronic kidney disease), stage III (Acute) HTN (hypertension) (Chronic) Hypertensive emergency (Acute) Kidney stone (Chronic 06/21/03) STENT PLACED Obesity (Chronic) Ulcerative colitis (Inactive) colectomy Surgical History (Updated 03/20/19 @ 16:03 by Kiley Hills MD) Hysterectomy, Laproscopic (~1980) Ileostomy (~1974) Replacement of total knee joint left-1995 WITH REVISION 2004; right-1996 with revision 2009 Stent placement left sided ureteral stent 2003 Total colectomy (~1974) Vein stripping 2002 Social History Smoking/Tobacco Use Status: Never Alcohol Intake: never Drug use: Never Substance use type: does not use Do you feel safe in your relationship?: Yes Meds Home Medications Medication Instructions Recorded Confirmed Type triamcinolone acetonide 80 gm TOPICAL wkly script 01/27/14 03/20/19 History potassium citrate-citric acid 1 ea PO BID packet 05/22/17 03/20/19 History [Cytra K Crystals] Ibuprofen [Motrin Ib] 600 mg PO Q6H 5 Days #30 tab 03/17/18 03/20/19 Rx cholecalciferol (vitamin D3) 1,000 1,000 unit PO DAILY #90 tab-cap 05/21/18 03/20/19 Rx unit capsule aspirin 81 mg tablet,delayed 81 mg PO DAILY 06/06/18 03/20/19 History release losartan 50 mg tablet 50 mg PO BID #180 tab-cap 01/22/19 03/20/19 Rx amlodipine 5 mg tablet 5 mg PO DAILY #30 tab 02/07/19 03/20/19 Rx Allergies Allergy/AdvReac Type Severity Reaction Status Date / Time adhesive Allergy Unknown Verified 03/20/19 05:37 Penicillins Allergy Unknown Verified 03/20/19 05:37 Sulfa (Sulfonamide Allergy Unknown Verified 03/20/19 05:37 Antibiotics) felodipine AdvReac daily Verified 03/20/19 05:37 h/a's and upset stomach Exam Narrative Exam Narrative: General: Very pleasant elderly obese female, who has no shortness of breath laying flat in bed Neurological: A&Ox3, no focal deficits Psychiatric: appropriate speech pattern/content Skin: visible skin intact HEENT: Atraumatic, normocephalic, EOMI, dry MM, clear oropharynx, no submandibular or cervical lymphadenopathy, no goiter or JVD Cardiovascular: RRR, no m/r/g Lungs: CTAB Gastrointestinal: abdomen is soft, nontender, nondistended, RLQ ileostomy Extremities: trace edema BLE's, in TEDs, no clubbing or cyanosis Results Imaging Additional studies: EKG: SR, HR 83, L anterior fascicular block (new) CXR: Normal chest. Echo: 1. Left ventricle: The estimated ejection fraction was 65%. Wall motion was normal; there were no regional wall motion abnormalities. There was no evidence of elevated ventricular filling pressure by Doppler parameters. 2. Aortic valve: There was trivial regurgitation. 3. Right ventricle: The cavity size was normal. Wall thickness was normal. Systolic function was normal. 4. Atrial septum: No defect or patent foramen ovale was identified. 5. Pulmonary arteries: Pulmonary systolic pressure was in the range of 30mm Hg to 40mm Hg. 6. Inferior vena cava: The vessel was patent and normal in size. The respirophasic diameter changes were in the normal range (greater than or equal to 50%), consistent with normal central venous pressure. Labs : 03/20/19 05:50 03/20/19 05:50 Laboratory Results - last 24 hr 03/20/19 03/20/19 03/20/19 05:50 05:50 05:50 WBC 5.45 RBC 4.59 Hgb 14.0 Hct 40.2 MCV 87.6 MCH 30.5 MCHC 34.8 RDW 13.8 Plt Count 172 MPV 9.5 Immature Gran % 0.2 Neutrophils % 43.3 Lymphocytes % 40.7 Monocytes % 9.9 Eosinophils % 5.3 Basophils % 0.6 Absolute Neutrophils 2.36 Absolute Lymphocytes 2.22 Absolute Monocytes 0.54 Absolute Eosinophils 0.29 Absolute Basophils 0.03 Sodium 139 Potassium 4.2 Chloride 104 Carbon Dioxide 23.9 Anion Gap 11.1 H BUN 33 H Creatinine 1.49 H Estimated GFR/1.73 m2 34.40 Glucose 102 H Hemoglobin A1c 6.0 Calcium 8.8 Magnesium 1.6 L Total Bilirubin 0.7 AST 20 ALT 24 Alkaline Phosphatase 81 Creatine Kinase Troponin I < 0.05 NT-Pro-B Natriuret Pep 221 Total Protein 6.9 Albumin 3.6 TSH 2.92 03/20/19 03/20/19 03/20/19 10:00 12:00 18:00 WBC RBC Hgb Hct MCV MCH MCHC RDW Plt Count MPV Immature Gran % Neutrophils % Lymphocytes % Monocytes % Eosinophils % Basophils % Absolute Neutrophils Absolute Lymphocytes Absolute Monocytes Absolute Eosinophils Absolute Basophils Sodium Potassium Chloride Carbon Dioxide Anion Gap BUN Creatinine Estimated GFR/1.73 m2 Glucose Hemoglobin A1c Calcium Magnesium Total Bilirubin AST ALT Alkaline Phosphatase Creatine Kinase Cancelled Troponin I < 0.05 Cancelled NT-Pro-B Natriuret Pep Total Protein Albumin TSH 03/20/19 18:00 WBC RBC Hgb Hct MCV MCH MCHC RDW Plt Count MPV Immature Gran % Neutrophils % Lymphocytes % Monocytes % Eosinophils % Basophils % Absolute Neutrophils Absolute Lymphocytes Absolute Monocytes Absolute Eosinophils Absolute Basophils Sodium Potassium Chloride Carbon Dioxide Anion Gap BUN Creatinine Estimated GFR/1.73 m2 Glucose Hemoglobin A1c Calcium Magnesium Total Bilirubin AST ALT Alkaline Phosphatase Creatine Kinase Troponin I Cancelled NT-Pro-B Natriuret Pep Total Protein Albumin TSH Last Vital Signs Temp 36.3 C L 03/20/19 12:38 Pulse 75 03/20/19 12:38 Resp 18 03/20/19 12:38 BP 130/76 03/20/19 12:38 Pulse Ox 100 03/20/19 12:38
[2019-03-20] MEDS: Normal Saline 1,000 ML 100 ML IV (16:26)
[2019-03-20 16:27] LABS: C-Reactive Protein 0.16 mg/dL (0.0-0.3)
[2019-03-20 16:45] LABS: Troponin I < 0.05 ng/mL (0.00-0.06)
[2019-03-20 16:56] LABS: ESR 25 mm/hr (0-30)
[2019-03-20] MEDS: Ibuprofen 600 MG TAB PO (18:43)
[2019-03-20] MEDS: amLODIPine 5 MG TAB PO (20:16)
[2019-03-20] MEDS: Losartan 50 MG TAB PO (20:16)
[2019-03-21] MEDS: Ibuprofen 600 MG TAB PO ×3 (00:18→11:31)
[2019-03-21 00:19] VITALS: BP 127/64; PULSE 78; RESP 19; TEMP 36.1; O2SAT 95
[2019-03-21] MEDS: Normal Saline 1,000 ML 100 ML IV ×2 (02:05→14:01)
[2019-03-21 06:11] VITALS: BP 158/82; PULSE 76; RESP 18; TEMP 36.1; O2SAT 96
[2019-03-21 07:02] LABS: HCT 40.5 % (36.0-46.0); HGB 13.9 g/dL (12.0-15.5); Mean Corp. HGB Concentration 34.3 g/dL (32.0-36.0); Mean Corpuscular Hemoglobin 30.2 pg (27.0-33.0); Mean Corpuscular Volume 87.9 fL (80-95); Platelet Count 154 x1000/uL (130-400); RBC 4.61 m/cumm (4.00-5.20); RBC Distribution Width 13.9 % (11.7-14.6)
[2019-03-21 07:12] LABS: Anion Gap 11.3 mmol/L (3-11); BUN 23 mg/dL (7-18); CO2 25.7 mmol/L (21.0-32.0); CREATININE 1.13 mg/dL (0.55-1.02); Calcium 8.1 mg/dL (8.5-10.1); Calculated LDL 123 mg/dL; Chloride 106 mmol/L (98-107); Cholesterol 198 mg/dL (50-200); Estimated GFR 47.33 (mL/min/1.73m2); Glucose 92 mg/dL (70-100); HDL Cholesterol 37 mg/dL (40-60); Magnesium 1.9 mg/dL (1.8-2.4); Sodium 143 mmol/L (136-145); Triglyceride 192 mg/dL (30-150)
[2019-03-21 07:15] VITALS: PULSE 69
--- NOTE | 2019-03-21 08:15 | MERGEMPI_ITS ---
*[facility]* *[facility]* [address] [place] [address] Myocardial Perfusion Imaging - SPECT Yayo protocol Date of study: 03/21/2019 *PATIENT PRESENTATION* Height: 157.5cm (62in) Blood Pressure: Weight: 96.6kg (212.6lb) BSA: 2.11m^2 Referring physician: Yaakov Isaac Ordering physician: Kiley Hills Impressions: Normal study after pharmacologic stress. Summary: 1. Myocardial perfusion imaging: No myocardial perfusion defects noted. 2. The calculated left ventricular ejection fraction after stress: 64%. LV global systolic function is normal. No left ventricular regional motion abnormality. Indication: R07.9. History: REASON FOR TESTING: PATIENT TESTING TODAY FOR FURTHER RISK STRATIFICATION. PATIENT PRESENTED TO THE ER ON 03/20/19 WITH LEFT ARM PAIN THAT WOKE HER UP FROM SLEEP AND RADIATED UP TO HER SHOULDER, NECK, JAW, AND UPPER BACK. SHE ALSO REPORTS PROGRESSIVELY WORSENING FATIQUE FOR THE LAST 2 MONTHS. PATIENT DENIES CHEST PAIN AND ANY OTHER SYMPTOMS UPON ARRIVAL TO TESTING TODAY. SIGNIFICANT PAST MEDICAL HISTORY: SUSPECTED SLEEP APNEA, CHRONIC KIDNEY DISEASE STAGE 3. SMOKING STATUS: NEVER. EXERCISE ROUTINE: PATIENT ACTIVE WITH MOISÉS CHI 1X WEEK FOR HOUR, POOL PHYSICAL THERAPY 2X WEEK FOR 30 MINUTES THROUGH [employer], GARDENING AND WALKING AROUND HER HOUSE. Risk factors: Hypertension. Obesity. Dyslipidemia. Cholesterol: 198mg/dl. HDL: 37mg/dl. LDL: 123mg/dl. Triglycerides: 192mg/dl. ALLERGIES: ADHESIVE, PENICILLINS, SULFA, FELODIPINE. MEDICATIONS: TRIAMCINOLONE ACETONIDE 80 GM WEEKLY, VITAMIN D 1,000 UNIT DAILY, ASPRIN 81 MG DAILY, AMLODIPINE 5 MG DAILY, IBUPROFEN 600 MG PRN, POTASSIUM CITRATE CITRIC ACID 1 PACKET BID, LOSARTAN 50 MG BID. Imaging Technique: Protocol: Yayo protocol. Acquisition: Gated SPECT; 1 day - rest/stress. The patient was imaged in the supine position. Attenuation correction used. Isotope administration: - Rest. Tc[99m]-sestamibi. Dose: 10.6mCi. Injection time: 08:30 AM. Injection to stress time: 00:45. - Stress. Tc[99m]-sestamibi. Dose: 32mCi. Injection time: 10:20 AM. 1-2 min before end of exercise Baseline ECG: SINUS RHYTHM. HR 73 BPM. Stress protocol: +--------+--+ + + !Stage !HR!BP (mmHg) !Comments ! +--------+--+ + + !Baseline!73!166/98 (121)! ! +--------+--+ + + !1 min !91!174/78 (110)!Inject Regadenoson.! +--------+--+ + + !3 min !88!180/78 (112)! ! +--------+--+ + + !6 min !82!182/94 (123)! ! +--------+--+ + + !9 min !82!164/80 (108)! ! +--------+--+ + + * Stress results: UNABLE TO DO YAYO PROTOCOL WALKING STRESS TEST DUE TO LEFT BUNDLE BRANCH BLOCK. STRESS TEST ENDED IN 9 MINUTES 4 SECONDS. NORMAL HEART RATE AND BLOOD PRESSURE RESPONSE TO LEXISCAN INJECTION. RARE PVC. PATIENT REPORTED BILATERAL NECK PRESSURE (5/10) AT 1 MINUTE 45 SECONDS POST LEXISCAN INJECTION. PATIENT REPORTED BILATERAL UPPER CHEST PRESSURE (10/10) AT 2 MINUTES 11 SECONDS POST LEXISCAN INJECTION. BOTH BILATERAL NECK PRESSURE AND BILATERAL UPPER CHEST PRESSURE WERE RESOLVED BY 4 MINUTE 25 SECONDS POST LEXISCAN INJECTION. NO SIGNIFICANT ST SEGMENT CHANGES. The rate-pressure product for the peak heart rate and blood pressure was [id number] Hg/min. Myocardial perfusion: Imaging information: gated. Left ventricular size is normal. No myocardial perfusion defects noted. Ventricular Function (Wall Motion): The calculated left ventricular ejection fraction after stress: 64%. LV global systolic function is normal. No left ventricular regional motion abnormality. Study data: Yaakov Isaac MD supervised and was readily available during the procedure. This study was interpreted by [facility]. Study status: Routine. Consent: The risks, benefits, and alternatives to the procedure were explained to the patient and informed consent was obtained. Procedure: Initial setup. A baseline ECG was recorded. Surface ECG leads and manual cuff blood pressure measurements were monitored. Heart sounds: Normal. Lung sounds: Normal. Treadmill exercise testing was performed using the Yayo protocol. Study completion: All catheters inserted during the procedure were removed. The patient tolerated the procedure well and was discharged from the lab. Discharge: The patient left the laboratory in stable condition. Birthdate: Patient birthdate: 1945. Sex: Gender: female. Study date: Study date: 03/21/2019. Study time: 00:01 AM. Signature Documentation: - The imaging portion of this study was interpreted by Nuclear [employer] Yaakov Isaac MD. - The imaging portion of this study was interpreted by Nuclear Radiologist Marisela Kim MD. - The Stress ECG portion of this study was interpreted by Yaakov Isaac MD. Electronically signed by Yaakov Isaac 03/21/2019 14:27
[2019-03-21] MEDS: Regadenoson 0.4 MG/5 ML SYR IVP (10:33)
[2019-03-21 11:00] VITALS: BP 146/71; PULSE 80; RESP 18; TEMP 36.4; O2SAT 97
[2019-03-21] MEDS: Enoxaparin 40 MG/0.4 ML SYR SC (11:27)
[2019-03-21] MEDS: Losartan 50 MG TAB PO (11:31)
[2019-03-21] MEDS: Aspirin E.C. 81 MG TABEC PO (11:31)
[2019-03-21] MEDS: Cholecalciferol (Vitamin D3) 1,000 UNIT TAB 1000 UNITS PO (11:31)
[2019-03-21 14:31] VITALS: PULSE 74
--- NOTE | 2019-03-21 14:41 | PDOC.CMDIS ---
- If Service Date Differs Date of service: 03/21/19 Time of Service: 14:41 LACE Index Scoring Tool - Questions: Length of Stay (in days): 1 Acuity (Admit via E.D.?): Yes Comorbidities: Liver or Renal Disease E.D. Visits: 3 - Answers: Total Score: 12 Risk of Readmission: High Risk Care Management Discharge Reason for Hospitalization: atypical chest pain Discharge Plan: Andreina will be discharged home with no new services. She will follow up with Cardiology, her PCP and discharge plan of care. She will transport via private vehicle with [facility]. Patient/Family Education Needs: Discharge plan, limitations, follow up and Ask Me Three.
--- NOTE | 2019-03-21 14:42 | W.PM.DS.N ---
Date of service: 03/21/19 Time of Service: 14:43 DS: Diagnosis Discharge Diagnosis (1) Atypical chest pain: Start date: 03/21/19 Start time: 14:43 Status: Acute Asessment and Plan: Stress test negative. LDL 123 HDL 37, triglycerides 192. Consider radiculopathy of the neck given symptoms dissapated and Pain was with rebound. Prior to pain patient did lance chi and water aerobics. Cervical xray done here and patient will follow with PCP for results and recommended MRI. (2) Essential hypertension: Status: Chronic (3) CKD (chronic kidney disease), stage III: Status: Acute (4) Pulmonary hypertension: Status: Acute (5) DVT prophylaxis: Status: Acute (6) Discharge planning issues: Status: Acute Discharge Plan Disposition Patient Disposition: HOME Condition: Good Discharge Details Chief Complaint: Chest Pain Clinical Impression: Left arm pain, DIAMOND (dyspnea on exertion) Reason For Visit: CHEST PAIN, ANGINA? Admit Date/Time: 03/20/19 07:37 Admit Provider: Kiley Hills Attending Provider: Kiley Hills Primary Care Provider: Jose Eaton ED Provider[facility] Course: 73 y.o Female with PMHx of HTN, obesity, suspected sleep apnea, UC, was admitted from [facility] ED with c/o L arm pain, waking her up from sleep, neck, shoulder, jaw and upper back pain. Same pain the day before that lasted about 3-4 hours. Her pain disapated a couple hours after arriving. She was on telemetry with no abnormality, serial troponin negative, nuclear stress was done today that was normal. She was scheduled for a stress on the with her PCP. Echo normal with EF 65, systolic function normal. Pulmonary arteries 30-40. Consider cervical radiculopathy in a 73 y.o Female with a history of arthritis and spinal issues. She had cervical imaging that will need follow up with her PCP and recommend f/u in 1-2 weeks. Also I recommend a cervical MRI if this continues to happen. She denies CP, SOB, N/V/D. Home Meds and New Rx's Prescriptions: New aspirin 81 mg Tablet,Delayed Release (Dr/Ec) 81 mg PO DAILY Qty: 30 RF: 0 Continued cholecalciferol (vitamin D3) [Vitamin D3] 1,000 unit capsule 1,000 unit PO DAILY Qty: 90 RF: 3 amlodipine 5 mg tablet 5 mg PO DAILY Qty: 30 RF: 3 aspirin [Adult Aspirin Regimen] 81 mg tablet,delayed release (DR/EC) 81 mg PO DAILY RF: 0 triamcinolone acetonide 80 GM ointment 80 gm Topical wkly RF: 0 potassium citrate-citric acid [Cytra K Crystals] 1 EACH packet 1 ea PO BID RF: 0 losartan [Cozaar] 50 mg tablet 50 mg PO BID Qty: 180 RF: 3 Ibuprofen [Motrin Ib] 200 MG tablet 600 mg PO Q6H 5 Days Qty: 30 RF: 0 Discharge Instructions Instructions: Chest Pain (GEN), Lipid Profile (GEN), Cervical Radiculopathy (GEN), Neck Exercises (GEN), Neck Pain (GEN) Additional Instructions: Take 81 mg aspirin daily Follow up with your Primary Provider in 1 week they will discuss xray results with you. Recommend sleep study for sleep apnea Recommend heat or ice to neck when having pain. Take 800 mg ibuprofen for pain as well. Your good cholesterol was low work on increasing your good cholesterol by eating high-fiber, whole grains, and taking 3000 mg of omega 3 fatty acid. Seek medical attention if you have shortness of breath, chest pain, nausea/vomiting/diarrhea. Activity:: Activity as Tolerated Equipment/Supplies:: No Equipment Needed Diet:: Low cholesterol diet Discharge Orders Discharge Orders: Discharge Order (Routine); Ordered 03/21/19 Ordered By: Cookie Lovell Exam Narrative Exam Narrative: General: Very pleasant elderly obese female, who has no shortness of breath laying flat in bed Neurological: A&Ox3, no focal deficits Psychiatric: appropriate speech pattern/content Skin: visible skin intact HEENT: Atraumatic, normocephalic, EOMI, dry MM, clear oropharynx, no submandibular or cervical lymphadenopathy, no goiter or JVD Cardiovascular: RRR, no m/r/g Lungs: CTAB Gastrointestinal: abdomen is soft, nontender, nondistended, RLQ ileostomy Extremities: trace edema BLE's, in TEDs, no clubbing or cyanosis DS: Data Vitals/I&O Vitals and I&O: Vital Signs Temperature 36.4 C L 03/21/19 11:00 Temperature Source Tympanic 03/21/19 11:00 Pulse 80 03/21/19 11:00 Pulse Rhythm Regular 03/20/19 20:35 Pulse 70 03/20/19 08:16 Respiratory Rate 18 03/21/19 11:00 Respiratory Effort Non-Labored 03/20/19 20:35 Respiratory Depth Normal 03/20/19 20:35 Respiratory Pattern Normal 03/20/19 20:35 Blood Pressure 146/71 H 03/21/19 11:00 Blood Pressure Mean 77 03/20/19 08:16 Blood Pressure Position Sitting 03/20/19 05:33 Pulse Oximetry 97 03/21/19 11:00 Oxygen Delivery Method Room Air 03/21/19 11:00 Oxygen Flow Rate 0 03/21/19 11:00 Pain Level 0 03/21/19 11:00 Intake & Output 03/20/19 03/21/19 03/21/19 23:59 11:59 23:59 Intake Total 1340 / 1350 963.333 / 9484.946 0129 / 1962.333 Output Total 500 / 1000 Balance 840 / 350 963.333 / 7222.936 5725 / 1962.333 Weight 103.6 kg Intake: IV 963.333 / 0465.597 3234 / 1962.333 Oral 1330 / 1330 Output: Urine 500 / 1000 Other: Urine Color Yellow Yellow Urine Appearance Clear Clear Urine Odor None Normal Comment pt up independently to the bathroom Voiding Methods Toilet Toilet Completed studies during hospitalization [Text1]: Exam(s) a RAD:XR chest 2V PA & lateral SYMPTOM/DIAGNOSIS: SOB CHEST X-RAY: PA AND LATERAL. Comparison 08/24/12 The heart is normal in size. The lungs are clear. The mediastinal structures and pleura appear intact. CONCLUSION: Normal chest. Exam(s) EXAM: XR Chest, 2 Views EXAM DATE/TIME: 03/20/2019 5:54 AM CLINICAL HISTORY: 73 years old, female; Shortness of breath TECHNIQUE: Imaging protocol: XR of the chest, 2 views. COMPARISON: CR CHEST 2 VIEWS PA,LAT 08/24/2012 11:21 AM FINDINGS: Lungs: Mild hyperinflation. No consolidative pneumonia or pulmonary edema. Pleural space: Unremarkable. No pleural effusion. No pneumothorax. Heart/Mediastinum: Cardiac size normal. Vasculature: Aortic atherosclerotic calcification. Bones/joints: Mild degenerative changes noted throughout the spine. S-shaped thoracolumbar scoliotic curvature. STUDY CONCLUSIONS* Summary: 1. Left ventricle: The estimated ejection fraction was 65%. Wall motion was normal; there were no regional wall motion abnormalities. There was no evidence of elevated ventricular filling pressure by Doppler parameters. 2. Aortic valve: There was trivial regurgitation. 3. Right ventricle: The cavity size was normal. Wall thickness was normal. Systolic function was normal. 4. Atrial septum: No defect or patent foramen ovale was identified. 5. Pulmonary arteries: Pulmonary systolic pressure was in the range of 30mm Hg to 40mm Hg. 6. Inferior vena cava: The vessel was patent and normal in size. The respirophasic diameter changes were in the normal range (greater than or equal to 50%), consistent with normal central venous pressure. Labs on day of discharge: Labs from last 24 hours 03/21/19 03/21/19 03/20/19 06:45 06:45 16:05 WBC 4.10 L RBC 4.61 Hgb 13.9 Hct 40.5 MCV 87.9 MCH 30.2 MCHC 34.3 RDW 13.9 Plt Count 154 MPV 9.0 ESR 25 Sodium 143 Potassium 4.0 Chloride 106 Carbon Dioxide 25.7 Anion Gap 11.3 H BUN 23 H D Creatinine 1.13 H Estimated GFR/1.73 m2 47.33 Glucose 92 Calcium 8.1 L Magnesium 1.9 Troponin I C-Reactive Protein Triglycerides 192 H Total Cholesterol 198 LDL Cholesterol, Calc 123 HDL Cholesterol 37 L 03/20/19 03/20/19 16:05 16:05 WBC RBC Hgb Hct MCV MCH MCHC RDW Plt Count MPV ESR Sodium Potassium Chloride Carbon Dioxide Anion Gap BUN Creatinine Estimated GFR/1.73 m2 Glucose Calcium Magnesium Troponin I < 0.05 C-Reactive Protein 0.16 Triglycerides Total Cholesterol LDL Cholesterol, Calc HDL Cholesterol [facility] Medical History CKD (chronic kidney disease), stage III (Acute) HTN (hypertension) (Chronic) Hypertensive emergency (Acute) Kidney stone (Chronic 06/21/03) STENT PLACED Obesity (Chronic) Ulcerative colitis (Inactive) colectomy Surgical History Hysterectomy, Laproscopic (~1980) Ileostomy (~1974) Replacement of total knee joint left-1995 WITH REVISION 2004; right-1996 with revision 2009 Stent placement left sided ureteral stent 2003 Total colectomy (~1974) Vein stripping 2002 Social History Smoking/Tobacco Use Status: Never Alcohol Intake: never Drug use: Never Substance use type: does not use Do you feel safe in your relationship?: Yes
--- NOTE | 2019-03-21 15:36 | DI.RAD_ITS ---
SYMPTOMS/DIAGNOSIS: NECK PAIN CERVICAL SPINE: Comparison is made with [id number]. There are facet degenerative changes at C 2 - 3 on the left which may encroach mildly into the left neural foramen. The disc spaces are well maintained throughout. The remaining neural foramen are widely patent. IMPRESSION: Facet degenerative changes at C 2 - 3 may encroach on the left neural foramen.
== END 2019-03-21 16:05 | disposition home or self-care (01) ==
LOC: ER 07:56 → MS 08:43
PROVIDERS: Admitting Provider Internal Medicine; Emergency Provider Emergency Medicine; PCP Emergency Medicine; Visit Provider Internal Medicine
DX: R07.89 Other chest pain (principal); N18.3 Chronic kidney disease, stage 3 (moderate); I12.9 Hypertensive chronic kidney disease with stage 1 through stage 4 chronic kidney disease, or unspecified chronic kidney disease; I27.20 Pulmonary hypertension, unspecified; Z93.2 Ileostomy status; I44.7 Left bundle-branch block, unspecified
CPT/HCPCS: 36415; 78452; 80048; 80053; 80061; 82550; 85027; 85652; 93005; 93016; 93018; 93306; 99220; 99239; 99285; J1650; 71046; 72050; 83036; 83735; 83880; 84443; 84484; 85025; 86140; 93010; 93017; 99217; G0378; J2785

== ENCOUNTER 2019-06-03 00:40 | Outpatient (CLI) | payer MEDICARE, BC, SELFPAY ==
--- NOTE | 2019-06-03 11:22 | DI.MAMMO_ITS ---
EXAM: MG MAMMO SCREENING CLINICAL HISTORY: SCREENING Z12.31 TECHNIQUE: Bilateral full field digital CC and MLO mammographic images were obtained with 3D tomosyn thesis and utilizing computer aided detection (CAD). COMPARISON: Available for comparison. FINDINGS: Masses/Architectural Distortion: None seen. Microcalcifications: No suspicious pleomorphic-type are seen. Skin Thickening/Nipple Retraction: None. IMPRESSION: 1. No significant interval change with no specific features of malignancy noted. 2. Unless there is more urgent need, screening mammography is recommended, as per [employer] guidelines. ACR BI-RAD Category- 1 Negative Breast Density - Category C - Heterogeneously dense The mammogram demonstrates the patient's breast tissue is dense. Dense breast tissue is very common a nd is not abnormal but dense breast tissue can make it harder to find cancer on a mammogram. Also, de nse breast tissue may increase their breast cancer risk. This information about the result of the [facility] mogram report was provided to the patient to raise their awareness. Use this report when you speak wi th the patient about their risks for breast cancer, which includes their family history. At that time , you may recommend for more screening tests (Ultrasound or MRI) as they might be useful based on the ir risk. A negative radiographic report should not delay biopsy if a dominant or clinically suspicious mass is present. Up to ten percent of cancers are not identified on mammography. A negative report may reinforce clinical impression. Adenosis and dense breasts may obscure an underlying neoplasm. False positive reports average 6 to 10%. Patient will receive a letter notifying them of these results.
== END 2019-06-03 01:00 ==
PROVIDERS: PCP Emergency Medicine; Visit Provider Counselor Addiction (Substance Use Disorder)
DX: Z12.31 Encounter for screening mammogram for malignant neoplasm of breast (principal)
CPT/HCPCS: 77063; 77067

== ENCOUNTER 2019-07-18 11:00 | Emergency (ER) | payer MEDICARE, BC, SELFPAY ==
[2019-07-18 11:07] VITALS: BP 137/69; PULSE 99; RESP 20; TEMP 36.7; O2SAT 100
--- NOTE | 2019-07-18 11:50 | DI.RAD_ITS ---
EXAM: XR LUMBAR SPINE COMPLETE CLINICAL HISTORY: pain TECHNIQUE: COMPARISON: LUMBAR SPINE COMPLETE from 03/17/2018 FINDINGS: Five views were obtained. There is a moderate left convex lumbar scoliosis. There are mild degenera tive changes of the SI joints. There is disc space narrowing throughout the lower thoracic and lumba r spine. There are prominent hypertrophic changes of the vertebral endplates and facet joints. No e vidence of acute fracture. No spondylolysis or spondylolisthesis. IMPRESSION: Degenerative changes of the lumbar spine, no significant acute findings.
--- NOTE | 2019-07-18 18:57 | W.ED.GENAD ---
Discharge Plan Disposition Patient Disposition: HOME Condition: Good Discharge Details Chief Complaint: Nk/Back Pain Clinical Impression: Sciatica Primary Care Provider: Jose Eaton ED Provider: Michelle Browne Home Meds and New Rx's Prescriptions: New prednisone 5 mg tablet 5 mg PO DAILY Qty: 42 RF: 0 No Action cholecalciferol (vitamin D3) [Vitamin D3] 1,000 unit capsule 1,000 unit PO DAILY Qty: 90 RF: 3 triamcinolone acetonide 80 GM ointment 80 gm Topical wkly RF: 0 potassium citrate-citric acid [Cytra K Crystals] 1 EACH packet 1 ea PO BID RF: 0 losartan [Cozaar] 50 mg tablet 50 mg PO BID Qty: 180 RF: 3 amlodipine 5 mg tablet 5 mg PO DAILY Qty: 30 RF: 3 cyclobenzaprine 5 mg tablet 5 - 10 mg PO TID PRN (Reason: back pain) Qty: 60 RF: 0 Ibuprofen [Motrin Ib] 200 MG tablet 600 mg PO Q6H 5 Days Qty: 30 RF: 0 aspirin 81 mg Tablet,Delayed Release (Dr/Ec) 81 mg PO DAILY Qty: 30 RF: 0 Discharge Instructions Instructions: Sciatica (ED) Additional Instructions: Ice or heat to the back for discomfort. Rest activities as tolerated. Use prednisone as prescribed. Please hold ibuprofen while taking prednisone. Please call your urologist to make aware that you will be using prednisone temporarily. Use cane for ambulation May use Tylenol for soreness if needed. May use muscle relaxant as previously prescribed. Do not drive, drink or work while taking this medication. Follow-up with PCP or with your orthopedic doctor for reevaluation of your back pain. Return for any alarming symptoms, worsening or concerns sooner if needed Discharge Data Discharge Date/Time-TO BE ENTERED AT DEPARTURE: 07/18/19 13:38 Medical Decision Making 74-year-old patient with known back issues who presents to the emergency room for lower back pain with radiation to the right leg to the posterior knee. No pain beyond the knee. Patient is able to ambulate with the use of a cane. Patient denies any injury or trauma preceding onset of pain. Patient does report history of back pain with radiation to the contralateral leg. This was somewhat atypical as the radiating pain is occurring in the right limb. Patient was seen by PCP and ultimate we prescribed a muscle relaxant. Patient reports she has taken a muscle relaxant without significant relief. Patient denies any malaise or ill feeling at this time. She reports eating and drinking without difficulty. Patient denies numbness, tingling or weakness associated in the legs bilaterally. Denies any urinary urgency, frequency or dysuria. Denies any difficulty controlling urine. At this time on exam patient does have lower back pain with palpation overlying the lumbar spine. No significant paraspinal tenderness. No CVA tenderness. No sciatic notch pain with palpation. Full range of motion and strength in the lower extremities without obvious red flags. Will order an x-ray to rule out compression fracture as patient has had this pain for the last several weeks. X-ray reveals EXAM: XR LUMBAR SPINE COMPLETE CLINICAL HISTORY: pain TECHNIQUE: COMPARISON: LUMBAR SPINE COMPLETE from 03/17/2018 FINDINGS: Five views were obtained. There is a moderate left convex lumbar scoliosis. There are mild degenerative changes of the SI joints. There is disc space narrowing throughout the lower thoracic and lumbar spine. There are prominent hypertrophic changes of the vertebral endplates and facet joints. No evidence of acute fracture. No spondylolysis or spondylolisthesis. IMPRESSION: Degenerative changes of the lumbar spine, no significant acute findings. Discussed plan of management with this patient and reviewed patient's x-rays. Discussed degenerative changes noted. Patient offered a change in muscle relaxant versus narcotic pain management versus patches versus steroid. I have advised that steroid may be a concern in managing her symptoms as she does have known kidney disease. Patient reports she has tolerated steroid management in the past and this is her preferred treatment modality. Patient declines narcotic at this time. Patient would prefer to use muscle relaxants she is already been provided and add use of the prednisone taper. Discussed Medrol Dosepak versus prednisone taper by mouth. Patient's preferred management is prednisone as she has tolerated this in the past. Patient advised of the risks of using prednisone with known kidney disease and advised her to be sure her news agent is aware that she is using this medication. Patient reports her understanding. Conservative treatments also discussed. Patient does have a plan in place to follow with orthopedics in 2 weeks. Alarming symptoms and signs discussed. The patient was stable and requested discharge. Prior to discharge, my usual and customary return precautions were reviewed with the patient - this included follow-up instructions and reasons to return to the Emergency Department if conditions worsens, does not improve as expected, or other new concerns arise. HPI General Date/Time Provider Initiated Documentation: 07/18/19 11:34. HPI Narrative: Is a 74-year-old patient who presents for complaints of lower back pain with radiation into the right leg to the posterior knee. Patient denies any new specific injury or trauma. Patient denies any falls. Patient does report history of lower back pain with history of radiation to the contralateral leg. Patient denies any ill feeling, fever, chills, nausea, vomiting. Reports has been eating and drink without difficulty. Patient denies obvious leg weakness. Patient reports she did try taking a Flexeril today which did not significantly relieve her pain. Patient denies numbness, tingling or paresthesias associated. Denies any lower leg swelling. Patient reports ambulating without difficulty with the use of a cane. Patient ports onset of symptoms last few weeks. Patient reports PCP did provide a muscle relaxant but again reports no significant relief with use of that muscle relaxant today. Related Data Home Medications Medication Instructions Recorded Confirmed triamcinolone acetonide 80 gm TOPICAL wkly script 01/27/14 07/03/19 potassium citrate-citric acid 1 ea PO BID packet 05/22/17 07/03/19 [Cytra K Crystals] Ibuprofen [Motrin Ib] 600 mg PO Q6H 5 Days #30 tab 03/17/18 07/03/19 cholecalciferol (vitamin D3) 25 1,000 unit PO DAILY #90 tab-cap 18 07/03/19 mcg (1,000 unit) capsule losartan 50 mg tablet 50 mg PO BID #180 tab-cap 01/22/19 07/03/19 aspirin 81 mg PO DAILY #30 tab 03/21/19 07/03/19 amlodipine 5 mg tablet 5 mg PO DAILY #30 tab 05/13/19 07/03/19 cyclobenzaprine 5 mg tablet 5 - 10 mg PO TID PRN #60 tab 07/15/19 prednisone 5 mg PO DAILY #42 tab 07/18/19 Previous Rx's Medication Instructions Recorded Ibuprofen [Motrin Ib] 600 mg PO Q6H 5 Days #30 tab 03/17/18 cholecalciferol (vitamin D3) 25 1,000 unit PO DAILY #90 tab-cap 05/21/18 mcg (1,000 unit) capsule losartan 50 mg tablet 50 mg PO BID #180 tab-cap 01/22/19 aspirin 81 mg PO DAILY #30 tab 03/21/19 amlodipine 5 mg tablet 5 mg PO DAILY #30 tab 05/13/19 cyclobenzaprine 5 mg tablet 5 - 10 mg PO TID PRN #60 tab 07/15/19 prednisone 5 mg PO DAILY #42 tab 07/18/19 Allergies Allergy/AdvReac Type Severity Reaction Status Date / Time adhesive Allergy Unknown Verified 07/03/19 13:19 Penicillins Allergy Unknown Verified 07/03/19 13:19 Sulfa (Sulfonamide Allergy Unknown Verified 07/03/19 13:19 Antibiotics) felodipine AdvReac daily Verified 07/03/19 13:19 h/a's and upset stomach General Stated Complaint: Nk/Back Pain SARAHY: 4 Review of Systems All systems reviewed & are unremarkable except as noted in HPI and below Constitutional Constitutional: Denies chills, Denies fatigue, Denies fever(s), Denies headache(s) and Denies malaise ENT Ears, Nose, Mouth, and Throat: Denies headache(s) and Denies neck pain Gastrointestinal Gastrointestinal: Denies abdominal pain Genitourinary Genitourinary: Denies dysuria and Denies flank pain Musculoskeletal Musculoskeletal: Denies abnormal gait, Reports back pain, Denies neck pain, Denies numbness and Reports radiating pain into limb Neurologic Neurologic: Denies abnormal gait, Denies headache(s) and Denies numbness Endocrine Endocrine: Denies fatigue [facility] Medical History Arm pain (Acute) CKD (chronic kidney disease), stage III (Acute) HTN (hypertension) (Chronic) Hypertensive emergency (Acute) Kidney stone (Chronic 06/21/03) STENT PLACED Obesity (Chronic) Ulcerative colitis (Inactive) colectomy Surgical History Hysterectomy, Laproscopic (~1980) Ileostomy (~1974) Replacement of total knee joint left-1995 WITH REVISION 2004; right-1996 with revision 2010 Stent placement left sided ureteral stent 2004 Total colectomy (~1974) Vein stripping 2002 Social History Smoking/Tobacco Use Status: Never Alcohol Intake: never Drug use: Never Substance use type: does not use Do you feel safe at home: Yes Do you feel safe in your relationship?: Yes Exam Narrative Exam Narrative: CONST: Healthy appearing patient, in no acute distress. Well hydrated. Alert and alert. NECK: Normal visual inspection. FROM. Trachea midline. No Midline tenderness. CHEST: Normal insepection of the chest. RESP: Normal respiratory effort. Speaking full sentences. No cough. No audible wheezing. No retractions. MUSCULOSKELETAL: Normal Gait. FROM of all extremities. No pain with internal or external rotation of the hip. Straight leg raise is intact bilaterally. No lateral hip pain with palpation. No foot drop. Strength intact distally. Sensation equal distally. Back: No significant cervical or thoracic pain with palpation. Lumbar pain with palpation is noted. No significant sciatic notch pain with palpation. No increase in back pain with straight leg raise. SKIN: Normal. Dry. No rashes. Course Vital Signs Vital signs: Vital Signs Temperature 36.7 C 07/18/19 11:07 Pulse 99 H 07/18/19 11:07 Respiratory Rate 20 07/18/19 11:07 Blood Pressure 137/69 07/18/19 11:07 Pulse Oximetry 100 07/18/19 11:07 Temperature 36.7 C 07/18/19 11:07 Temperature Source Skin 07/18/19 11:07 Pulse 99 H 07/18/19 11:07 Respiratory Rate 20 07/18/19 11:07 Respiratory Effort Non-Labored 07/18/19 11:11 Blood Pressure 137/69 07/18/19 11:07 Blood Pressure Position Sitting 07/18/19 11:07 Pulse Oximetry 100 07/18/19 11:07 Oxygen Delivery Method Room Air 07/18/19 11:07 Oxygen Flow Rate 0 07/18/19 11:07 Pain Level 5 07/18/19 13:38
== END 2019-07-18 13:38 | disposition home or self-care (01) ==
PROVIDERS: Emergency Provider Physician Assistant; PCP Emergency Medicine
DX: M54.41 Lumbago with sciatica, right side (principal); N18.3 Chronic kidney disease, stage 3 (moderate); I12.9 Hypertensive chronic kidney disease with stage 1 through stage 4 chronic kidney disease, or unspecified chronic kidney disease
CPT/HCPCS: 99283; 72110

== ENCOUNTER → 2019-08-06 09:34 | Outpatient (BNVA) | payer MEDICARE, BC, SELFPAY | PROVIDERS: PCP Emergency Medicine; Referring Provider Emergency Medicine; Visit Provider Orthopaedic Surgery | DX: M54.31 Sciatica, right side (principal); M53.87 Other specified dorsopathies, lumbosacral region; I10 Essential (primary) hypertension | CPT/HCPCS: 99213 ==

== ENCOUNTER 2020-02-08 12:53 | Inpatient (IN) | payer MEDICARE, BC, SELFPAY ==
[2020-02-08] VITALS (62 sets, daily range): BP systolic 96–170; BP diastolic 53–72; PULSE 74–113; RESP 13–34; TEMP 37–37.1; O2SAT 91–98
--- NOTE | 2020-02-08 13:23 | NUR.NOTE ---
Nursing Note: Vinnie called to report some intermittent confusion over last 2 days. C/o persistent L lumbar pain, took flexeril 10 mg last @ 1000, advil 400 mg last @ 1100. MD mcnally. Vinnie' cell phone # [phone].
--- NOTE | 2020-02-08 13:29 | ED.GENADUL_ITS ---
Discharge Plan Disposition Patient Disposition: HOME Condition: Improving Discharge Details Chief Complaint: GenMedical Clinical Impression: Elevated brain natriuretic peptide (BNP) level, Urinary tract infection, Elevated serum creatinine, Low blood pressure Admit Date/Time: 02/09/20 16:02 Admit Provider: Zaire Patten Attending Provider: Zaire Patten Primary Care Provider: Jose Eaton ED Provider: Pollo Mane Hospital Course Hospital Course: Ms Torres is a 74 year old female with PMHx of nephrolithiasis, as well as CKD II, HTN, BILL, on CPAP, who was admitted to [facility] hospitalist service on 02/08/2020 with Klebsiella UTI and bacteremia, but without signs of SIRS. She as treated with ceftriaxone IV, to which her Klebsiella was sensitive. She did have evidence of TERE on CKD and mild lactic acidosis, for which her ARB was held and IVF were administered. Repeat blood cultures done on 02/10/2020 were negative. A renal ultrasound was performed to ensure that the patient did not have kidney stones on this admission - and she did not. While in the hospital the patient had a burst of non-sustained SVT - for this she was monitored on telemetry, and there were no recurrences. This was felt to be situational due to acute illness, and no new medication was introduced. Echocardiogram was done and showed LVEF of 54%, RVSP of 24mmHg, and indeterminate diastolic dysfunction. She did develop a nonproductive cough here. Her COVID-19 was negative. CXR showed atelectasis. The patient also had symptoms consistent with GERD. She was initiated on incentive spirometry and a PPI. She has a history of a hiatal hernia, which increases her risk of GERD. She is being discharged home today with 1 week of cefpodoxime. She is to follow up with her PCP on her known pulmonary nodule. Care for patient as well as completion of her discharge summary on day of discharge took 40 minutes. Discharge Data Discharge Date/Time-TO BE ENTERED AT DEPARTURE: 02/08/20 19:15 Medical Decision Making 1330?74-year-old female with multiple medical problems here with fever and shaking chills for the past 2 days, associated shortness of breath, intermittent cough and discomfort in her right ear. Patient is saturating in the low 90s and mildly tachypneic with high normal heart rate, lungs clear to auscultation bilaterally. Fever, chills and cough raises suspicion for potential infectious etiology including pneumonia. She is had no recent travel or known contact with someone with COVID-19. Will check a chest x-ray and send COVID-19 testing. Consider pulmonary embolism, patient is low risk and has no calf tenderness or lower extremity edema. I will obtain d-dimer. Ear exam is normal. 1553 --chest x-ray interpreted by radiology: No evidence of acute cardiopulmonary disease. CT angiography of the chest with contrast interpreted by radiology: No evidence of PE, 5.7 mm indeterminate nodule in the lateral aspect of the upper aspect of the right lower lobe. Follow-up may be needed. No specific etiology identified for the patient's symptoms. Concern for potential CHF given shortness of breath, tachypnea and unexplained shortness of breath - plan to check a BNP, urinalysis still pending, will repeat lactate after 1500 mL crystalloid bolus. 1720??urinalysis reviewed and interpreted by me: Consistent with urinary tract infection. This explains much of her symptomatology. I will give a dose of ceftriaxone 1 g IV. Repeat lactate within normal limits. Patient hemodynamically stable. Of note, her BNP is elevated at 900. Troponin negative. ECG shows left bundle branch block which is old compared to prior. Plan will be for follow-up with PCP. Patient will need close outpatient follow- up, outpatient cardiac echo and repeat creatinine. --Patient reassessed and blood pressure is now low with systolic in the 90s. Concern for potential urosepsis. Given elevated BNP, initially elevated lactate, and clear urinary tract infection now with hypotension, I will admit the patient for continued IV fluids, antibiotics and reassessment. HPI General Mode of arrival: ambulatory . Date/Time Provider Initiated Documentation: 02/08/20 12:54 . Limitations to Documentation: no limitations . Information obtained by: patient and family . HPI Narrative: 74-year-old female with history of hypertension, hyperlipidemia, ulcerative colitis, status post remote ileostomy, here with chief complaint of shortness of breath. Patient notes shortness of breath over the past couple days. She has associated fever and shaking chills last night. She does note intermittent cough. Shortness of breath is moderate with no modifiers. She has no associated chest pain. She does note associated fatigue. Patient also states she has some right ear discomfort since yesterday. No recent long distance travel or any contact with COVID-19 positive patients. concerned noting some intermittent confusion recently. Patient denies urinary symptoms. Ileostomy has been working well and she has no abdominal discomfort, nausea or vomiting. No known tick bites. Related Data Home Medications Medication Instructions Recorded Confirmed triamcinolone acetonide 80 gm TOPICAL wkly script 01/27/14 02/18/20 potassium citrate-citric acid 1 ea PO BID packet 05/22/17 02/18/20 [Cytra K Crystals] aspirin 81 mg PO DAILY #30 tab 03/21/19 02/18/20 cholecalciferol (vitamin D3) 25 1,000 unit PO DAILY #90 tab-cap 10/08/19 02/18/20 mcg (1,000 unit) capsule losartan 50 mg tablet 50 mg PO BID #180 tab-cap 01/21/20 02/18/20 meclizine 25 mg chewable tablet 25 mg PO BID PRN #40 tab-cap 01/21/20 02/18/20 cyclobenzaprine 5 mg tablet 5 - 10 mg PO TID PRN #60 tab 02/03/20 02/18/20 cefpodoxime 200 mg PO Q12H #14 tab 02/12/20 02/18/20 pantoprazole [Protonix] 40 mg PO DAILY #30 tab 02/12/20 02/18/20 Previous Rx's Medication Instructions Recorded aspirin 81 mg PO DAILY #30 tab 03/21/19 cholecalciferol (vitamin D3) 25 1,000 unit PO DAILY #90 tab-cap 10/08/19 mcg (1,000 unit) capsule losartan 50 mg tablet 50 mg PO BID #180 tab-cap 01/21/20 meclizine 25 mg chewable tablet 25 mg PO BID PRN #40 tab-cap 01/21/20 cyclobenzaprine 5 mg tablet 5 - 10 mg PO TID PRN #60 tab 02/03/20 cefpodoxime 200 mg PO Q12H #14 tab 02/12/20 pantoprazole [Protonix] 40 mg PO DAILY #30 tab 02/12/20 Allergies Allergy/AdvReac Type Severity Reaction Status Date / Time adhesive Allergy Unknown Verified 02/18/20 10:26 Penicillins Allergy Unknown Verified 02/18/20 10:26 Sulfa (Sulfonamide Allergy Unknown Verified 07/29/20 10:26 Antibiotics) felodipine AdvReac daily Verified 02/18/20 10:26 h/a's and upset stomach General Stated Complaint: GenMedical SARAHY: 3 Review of Systems All systems reviewed & are unremarkable except as noted in HPI and below Constitutional Constitutional: Reports fatigue and Reports fever(s) ENT Ears, Nose, Mouth, and Throat: Reports otalgia (Rate 2 days) Cardiovascular Cardiovascular: Denies chest pain and Reports dyspnea Respiratory Respiratory: Reports cough and Reports dyspnea Musculoskeletal Musculoskeletal: Reports back pain (Spasm) Comments: Back spasm Integumentary/Breasts Skin/Breast: Denies rash Endocrine Endocrine: Reports fatigue [facility] Medical History (Updated 02/12/20 @ 15:59 by Kiley Hills MD) Arm pain (Resolved) CKD (chronic kidney disease), stage III (Chronic) CPAP (continuous positive airway pressure) dependence (Chronic) HTN (hypertension) (Chronic) Hypertensive emergency (Acute) Kidney stone (Chronic 06/21/03) STENT PLACED Obesity (Chronic) Peripheral edema (Resolved) Pulmonary nodule (Chronic) Ulcerative colitis (Inactive) colectomy Surgical History (Updated 02/08/20 @ 21:46 by Zaire Patten) History of ileostomy (Inactive) History of total colectomy (Inactive) History of total left knee replacement (TKR) (Inactive) TKA: 1994, tibial revision 2004. History of total right knee replacement (TKR) (Inactive) TKA: 1996, complete revision 2009. Hysterectomy, Laproscopic (~1980) Ileostomy (~1974) Replacement of total knee joint left-1995 WITH REVISION 2004; right-1996 with revision 2009 Status post laparoscopic hysterectomy (Inactive) Status post vein stripping (Inactive) Stent placement left sided ureteral stent 2003 Total colectomy (~1974) Vein stripping 2003 Social History Smoking/Tobacco Use Status: Never Alcohol Intake: never Drug use: Never Substance use type: does not use Do you feel safe at home: Yes Do you feel safe in your relationship?: Yes Exam Const General: cooperative and no acute distress HENMT Ears: external ears normal, TM's normal bilaterally, EAC's normal and mastoids normal Mouth: moist mucous membranes Throat: posterior oropharynx normal Eyes Conjunctivae: normal conjunctivae Sclera: normal sclerae Neck Neck: trachea midline and supple Resp Effort & Inspection: able to speak in complete sentences, no respiratory distress and tachypneic Auscultation: clear to auscultation bilaterally, no rales, no rhonchi and no wheezes Cardio Jugular venous pressure: no JVD Rate: regular rate and not tachycardic Rhythm: regular rhythm GI Palpation: soft, not firm, no guarding, no masses, not rigid and nontender Skin General skin exam: no rashes or lesions noted Neuro General: patient alert, patient awake, patient oriented x3 and tone normal Extrem General: no calf tenderness and no edema Psych Appearance: grossly normal Mental Status: mental status grossly normal Speech and Movement: speech and movement normal Course Vital Signs Vital signs: Vital Signs Temperature 37.0 C 02/08/20 13:03 Pulse 99 H 02/08/20 13:03 Respiratory Rate 32 H 02/08/20 13:03 Blood Pressure 170/67 H 02/08/20 13:03 Pulse Oximetry 93 L 02/08/20 13:03 Temperature 37.0 C 02/08/20 13:03 Temperature Source Skin 02/08/20 13:03 Pulse 99 H 02/08/20 13:03 Respiratory Rate 32 H 02/08/20 13:03 Respiratory Effort 02/08/20 13:07 Respiratory Depth Shallow 02/08/20 13:07 Respiratory Pattern Tachypnea 02/08/20 13:07 Blood Pressure 170/67 H 02/08/20 13:03 Blood Pressure Position Supine 02/08/20 13:03 Pulse Oximetry 93 L 02/08/20 13:03 Oxygen Delivery Method Room Air 02/08/20 13:03 Oxygen Flow Rate 0 02/08/20 13:03 Lab/Test Results Lab/Test Results: 02/08/20 13:18 Blood Blood Culture - Pending 02/08/20 13:18 Blood Blood Culture - Pending
--- NOTE | 2020-02-08 13:30 | RT.EKG_ITS ---
APPROVED REPORT Exam: Resting ECG Patient Location: E HR:97 bpm ECG Measurements Heart Rate 97 AXIS SC 161 P 60 QRSd 136 QRS -66 QT 351 T 94 QTc 446 <Conclusion> Sinus rhythm...normal P axis, V-rate 60- 99 Probable left atrial enlargement...P >50mS, <-0.10mV V1 Left bundle branch block...QRSd>120, broad/notched R lbbb old compared to 03/20/19
[2020-02-08 14:02] LABS: Abs Immature Grans 0.03 k/cumm (0.0-0.09); Absolute Basophil Count 0.02 k/cumm (0.0-0.2); Absolute Eosinophil Count 0.01 k/cumm (0.0-0.7); Absolute Lymphocyte Count 0.59 k/cumm (1.2-3.4); Absolute Monocyte Count 0.45 k/cumm (0.11-0.7); Basophils % 0.3; Eosinophils % 0.1; HGB 14.4 g/dL (12.0-15.5); Immature Grans % 0.4 %; Lymphocytes % 8.7; Mean Corp. HGB Concentration 34.3 g/dL (32.0-36.0); Mean Corpuscular Hemoglobin 29.6 pg (27.0-33.0); Mean Corpuscular Volume 86.4 fL (80-95); Mean Platelet Volume 9.4 fL (8.0-11.0); Monocytes % 6.6; Neutrophils % 83.9; Platelet Count 129 x1000/uL (130-400); RBC 4.86 m/cumm (4.00-5.20); RBC Distribution Width 14.3 % (11.7-14.6)
[2020-02-08 14:03] LABS: Lactate 3.1 mmol/L (0.6-1.4)
[2020-02-08 14:21] LABS: ALT 30 U/L (14-59); AST 32 U/L (15-37); Albumin 3.4 g/dL (3.4-5.0); Alkaline Phosphatase 85 U/L (46-116); Anion Gap 13.1 mmol/L (3-11); BUN 22 mg/dL (7-18); Bilirubin, Total 1.1 mg/dL (0.2-1.0); CO2 22.9 mmol/L (21.0-32.0); CREATININE 1.54 mg/dL (0.55-1.02); Calcium 8.8 mg/dL (8.5-10.1); Chloride 101 mmol/L (98-107); Estimated GFR 33.02 (mL/min/1.73m2); Glucose 115 mg/dL (74-106); Magnesium 1.6 mg/dL (1.8-2.4); Potassium 3.7 mmol/L (3.5-5.1); Sodium 137 mmol/L (136-145); Total Protein 7.3 g/dL (6.4-8.2)
[2020-02-08 14:25] LABS: Troponin I < 0.05 ng/mL (<0.06)
[2020-02-08 14:32] LABS: D-Dimer 2703 ng/mlFEU (<500)
--- NOTE | 2020-02-08 14:40 | DI.RAD_ITS ---
EXAM: XR PORTABLE CHEST AP CLINICAL HISTORY: fever, chills TECHNIQUE: 2D digital imaging was performed. COMPARISON: CR XR CHEST 2V PA LATERAL from 03/20/2019 FINDINGS: MEDIASTINUM: Normal. HEART: Normal. PULMONARY VASCULATURE: Normal. LUNGS: Clear. PLEURAL SPACE: No pleural effusion or pneumothorax. BONE:Normal. OTHER FINDINGS:Normal. IMPRESSION: No acute pulmonary findings. DATA REPOSITORY: RADIATION DOSE DELIVERED:
[2020-02-08] MEDS: Normal Saline 1,000 ML 1000 ML IV (14:43)
--- NOTE | 2020-02-08 15:09 | DI.VRAD_ITS ---
PROCEDURE INFORMATION: Exam: XR Chest, 1 View Exam date and time: 02/08/2020 2:40 PM Age: 74 years old Clinical indication: Fever TECHNIQUE: Imaging protocol: XR of the chest Views: 1 view. COMPARISON: CR XR CHEST 2V PA LATERAL 03/20/2019 6:06 AM FINDINGS: The lung gupta are clear bilaterally. No focal pulmonary consolidation is present. The cardiac silhouette is within normal limits. The costophrenic angles are sharp. The bony structures appear unremarkable. IMPRESSION: No evidence of acute cardiopulmonary disease. Dictated and Authenticated by: Pierce Turcios MD. Ordering:ESTELLE Abad MD
[2020-02-08] MEDS: Normal Saline - Diluent 50 ML VIAL IV (15:20)
[2020-02-08] MEDS: Omnipaque 350 MG/ML 100 ML BTL IJ (15:20)
--- NOTE | 2020-02-08 15:30 | DI.CT_ITS ---
EXAM: CT CHEST PE CTA CLINICAL HISTORY: shortness of breath, fever, elevated ddimer. TECHNIQUE: Imaging Protocol: Axial CT angiography was performed with multi-slice acquisition and mu lti-planar and/or 3D reconstructions. CONTRAST MATERIAL: Intravenous: Omnipaque 350 Contrast volume:100 mL COMPARISON: CT ABD PELVIS WITH CONTRAST from 07/18/[address] ABDOMEN PELVIS W from 10/02/2018 FINDINGS: Pulmonary Arteries: No evidence of filling defect to suggest pulmonary emboli. Tracheobronchial tree: Patent where visualized. Mediastinum and Dora: No dominant adenopathy or fluid collection. Pulmonary parenchyma: No focal consolidation. There is a 0.6 cm noncalcified pulmonary nodule adjace nt to the right major fissure laterally. This was present on the examination from 07/18/2011 at [facility] time it measured 0.4 cm. No architectural distortion. Pleura: No effusion or pneumothorax. Heart: The heart is not dilated. [id number] coronary artery calcification is present. No evide nce of right heart strain or pericardial effusion. Aorta: Thoracic aorta non-dilated. No evidence of dissection. Mild atherosclerosis. Upper abdomen: Unremarkable. Bones: Degenerative changes. IMPRESSION: 1. No evidence of pulmonary embolism, thoracic aortic dissection or aneurysm. 2. 0.6 cm noncalcified pulmonary nodule. It is shown slight interval increase in size compared to th e examination from 2010. For patients at low risk, recommend follow-up CT scan in 12 months. If unc hanged, no further follow-up. For high risk patient is (history of smoking or other known risk fract ures), follow-up CT scan of the chest in 6-12 months is recommended. RADIATION DOSE DELIVERED: Total DLP DATA REPOSITORY: All CT scans at this facility are submitted to the National Radiology Data Registry (NRDR) Dose Index Registry (DIR) with the [employer] (ACR). RADIATION OPTIMIZATION: All CT scans at this facility use at least one of these dose optimization te chniques: automated exposure control; mA and/or kV adjustment per patient size (includes targeted exa ms where dose is matched to clinical indication); or iterative reconstruction.
--- NOTE | 2020-02-08 15:47 | DI.VRAD_ITS ---
PROCEDURE INFORMATION: Exam: CT Angiography Chest With Contrast Exam date and time: 02/08/2020 3:20 PM Age: 74 years old Clinical indication: Abnormal findings; Abnormal diagnostic tests; Elevated d-dimer; Fever and shortness of breath TECHNIQUE: Imaging protocol: Computed tomographic angiography of the chest with intravenous contrast. 3D rendering: MIP and/or 3D reconstructed images were created by the technologist. COMPARISON: CR XR PORTABLE CHEST AP 02/08/2020 2:34 PM FINDINGS: No evidence of PE. 5.7 mm it indeterminate nodule in the lateral aspect of the upper aspect of the right lower lobe. Follow-up may be needed. Please see the final report for details and the Fleischner criteria below. No significant focal consolidation. No pleural effusion. No pneumothorax. No adenopathy. Unremarkable upper abdomen. No acute mediastinal or aortic abnormality. IMPRESSION: No specific etiology identified for the patient's symptoms. As per Fleischner Society guidelines for follow-up and management of pulmonary nodules: For patients at low risk (minimal or absent history of smoking and of other known risk factors), recommend follow-up chest CT at 12 months; if unchanged, no further follow-up. For patient at high risk (history of smoking or of other known risk factors), recommend initial follow-up chest CT at 6-12 months, then at 18-24 months if no interval change. Dictated and Authenticated by: Pierce Turcios MD. Ordering:ESTELLE Abad MD
[2020-02-08] MEDS: Normal Saline 500 ML IV (16:00)
[2020-02-08 16:33] LABS: Bilirubin Negative (Negative); Blood Trace-intact (Negative); Clarity Clear (Clear); Glucose Negative (Negative); Ketones Negative (Negative); Leukocyte Esterase Moderate (Negative); Nitrite Positive (Negative); Specific Gravity 1.015 (1.005-1.025); Urobilinogen 0.2 EU/dL (Up TO 0.2)
[2020-02-08 16:46] LABS: Bacteria Many HPF (Negative); C & S Indicated? Yes; Casts Negative LPF (Negative); Crystals Negative HPF (Negative); Mucus Negative (Negative); WBC >50 HPF (0-5)
[2020-02-08 16:51] LABS: Lactate 1.2 mmol/L (0.6-1.4)
[2020-02-08] MEDS: cefTRIAXone 1 GM/50 ML BAG IVPB (17:06)
[2020-02-08 17:13] LABS: NT-proBNP 951 pg/mL (<300)
--- NOTE | 2020-02-08 18:01 | NUR.NOTE ---
Referral faxed to pcp [facility] yuval limon requisition for echocardiogram faxed to di.Nursing Note:
[2020-02-08 19:29] LABS: Procalcitonin 0.8 ng/mL
[2020-02-08] MEDS: Lactated Ringers 1,000 ML 85 ML IV (20:06)
[2020-02-08] MEDS: Enoxaparin 30 MG/0.3 ML SYR SC (20:06)
--- NOTE | 2020-02-08 20:32 | W.PM.HP.N ---
Date of service: 02/08/20 Time of Service: 20:33 Assessment and Plan Assessment and plan (1) Sepsis associated hypotension: Status: Acute Assessment and plan: Patient presented with acute confusion, tachycardia, hypotension, acute on chronic kidney dysfunction with a borderline elevated procalcitonin level and evidence for UTI. She clearly had impending sepsis but seems to be responding to conservative treatment including IV fluid hydration and prompt initiation of antibiotics. We will monitor her overnight and check the results of her cultures and modify her antibiotic therapy based on her sensitivities. We will get an ultrasound of her kidneys given her prior history of nephrolithiasis. We will repeat her labs in the morning including her BMP and CBC. Once we have her culture results and sensitivity we can modify her and discharge her home on oral antibiotics. (2) Urinary tract infection: Status: Acute Assessment and plan: As above Qualifiers: Urinary tract infection type: site unspecified Hematuria presence: without hematuria Qualified Code(s): N39.0 - Urinary tract infection, site not specified (3) CKD (chronic kidney disease), stage III: Status: Chronic Assessment and plan: We will hydrate her and follow-up with a repeat BMP in the morning. Avoid nephrotoxins. Check renal ultrasound to assess for evidence of pyelonephritis or recurrent kidney stones. (4) Essential hypertension: Status: Chronic Assessment and plan: Patient initially was hypertensive and then became hypotensive in the emergency department but has since responded to IV fluids. For now we will hold off her antihypertensive medications until we are sure that her hemodynamics have stabilized. She should resume her home antihypertensive medications upon discharge. (5) Lactic acidosis: Status: Acute Assessment and plan: Blood lactate was elevated on admission as well as her anion gap. This appears to be resolving. We will repeat her levels in the morning. (6) Hypomagnesemia: Status: Acute Assessment and plan: We will supplement her with IV magnesium and repeat her levels in the morning. (7) DVT prophylaxis: Status: Acute Assessment and plan: Low-dose renally adjusted enoxaparin in addition to MANJIT hose and pneumatic stockings History of Present Illness History of Present Illness Chief Complaint: fever, chills, sleeping all the time Narrative: 74 yr old female non-smoker w/ PMH of U.C. s/p remote ileostomy, nephrolithiasis, HTN, HLD, who presents to the ER w/ acute c/o fever (subjective, did not check temp at home), chills (rigors), nausea w/out vomiting or abdominal pain for past 1 to 2 days associated w/ fatigue and sleeping all the time and decreased oral intake. Evaluation in the ER did not reveal a fever, BP on arrival to the ER was hypertensive (170/67) but then she developed some mild hypotension (96/70) that resolved w/ fluids. She reportedly was short of breath, although the patient tells me that she did not feel short of breath, just that her noted that she was breathing rather fast and seemed short of breath. Her pulse oximetry on arrival was borderline low at 91 to 93% but has since returned to normal at 98%. She denies any dysuria. She has had some chronic lower back pains but no exquisit flank pains. Workup in the ER included routine labs (cmp, cbc, d-dimer, bnp, troponin, magnesium, lactate) and CXR and CT of her chest. Labs were remarkable for elevated BUN 22 and creatinine 1.54 (baseline BUN 22 to 30 and creatinine 1.05 to 1.49), BNP 951, d-dimer 2700 and normal troponin and CBC that did not show any leukocytosis or anemia but platelets of 129,000. Procalcitonin was subsequently ordered and found to be indeterminate at 0.8. UA was remarkable for +nitrites, mod. leukocyte esterase, >50 wbc/hpf and many bacteria. Lactate level was elevated at 3.1 on admission but came down to 1.2 after hydration. Patient was given 1.5 liters of [place]. and Rocephin 1 gm IVPB. She is admitted for dehydration and urosepsis. [facility] Arm pain (Acute) CKD (chronic kidney disease), stage III (Acute) CPAP (continuous positive airway pressure) dependence (Acute) HTN (hypertension) (Chronic) Hypertensive emergency (Acute) Kidney stone (Chronic 06/21/03) STENT PLACED Obesity (Chronic) Peripheral edema (Acute) Ulcerative colitis (Inactive) colectomy Surgical History Hysterectomy, Laproscopic (~1980) Ileostomy (~1974) Replacement of total knee joint left-1995 WITH REVISION 2004; right-1996 with revision 2009 Stent placement left sided ureteral stent 2003 Total colectomy (~1975) Vein stripping 2002 Social History Smoking/Tobacco Use Status: Never Alcohol Intake: never Drug use: Never Substance use type: does not use Do you feel safe at home: Yes Do you feel safe in your relationship?: Yes Meds Home Medications and Allergies Home Medications Medication Instructions Recorded Confirmed Type triamcinolone acetonide 80 gm TOPICAL wkly script 01/27/14 02/08/20 History potassium citrate-citric acid 1 ea PO BID packet 05/22/17 02/08/20 History [Cytra K Crystals] aspirin 81 mg PO DAILY #30 tab 03/21/19 02/08/20 Rx cholecalciferol (vitamin D3) 25 1,000 unit PO DAILY #90 tab-cap 10/08/19 02/08/20 Rx mcg (1,000 unit) capsule losartan 50 mg tablet 50 mg PO BID #180 tab-cap 01/21/20 02/08/20 Rx meclizine 25 mg chewable tablet 25 mg PO BID PRN #40 tab-cap 01/21/20 02/08/20 Rx cyclobenzaprine 5 mg tablet 5 - 10 mg PO TID PRN #60 tab 02/03/20 02/08/20 Rx cephalexin [Keflex] 500 mg PO QID #28 cap 02/08/20 Rx Allergies Allergy/AdvReac Type Severity Reaction Status Date / Time adhesive Allergy Unknown Verified 02/08/20 13:10 Penicillins Allergy Unknown Verified 02/08/20 13:10 Sulfa (Sulfonamide Allergy Unknown Verified 02/08/20 13:10 Antibiotics) felodipine AdvReac daily Verified 02/08/20 13:10 h/a's and upset stomach Exam Narrative Exam Narrative: Obese redheaded female who is alert and oriented person place time circumstance. HEENT is remarkable for dry mucous membranes Neck exam is supple no nuchal rigidity no cervical lymphadenopathy normal carotid pulses no bruits no JVD. Neck veins are flat. Lungs are clear to auscultation. Heart is regular rate and rhythm without murmur rub or gallop. Abdomen is obese soft nontender nondistended. Ileostomy stoma has a stoma bag over it there is no induration or erythema around the stoma. No guarding or rebound tenderness. Lower extremities without peripheral cyanosis or edema. She has well-healed surgical scars over her right and left knees from previous knee replacements. No joint swelling. Normal strength and range of motion. Neuro exam is grossly intact no focal deficits. Speech is clear and coherent no facial asymmetry. Full extraocular motion intact normal strength in both upper and lower extremities. Results Labs Result diagrams: 02/08/20 13:40 02/08/20 13:40 Labs: Laboratory Results - last 24 hr 02/08/20 02/08/20 02/08/20 13:40 13:40 13:40 WBC 6.80 RBC 4.86 Hgb 14.4 Hct 42.0 MCV 86.4 MCH 29.6 MCHC 34.3 RDW 14.3 Plt Count 129 L MPV 9.4 Immature Gran % 0.4 Neutrophils % 83.9 Lymphocytes % 8.7 Monocytes % 6.6 Eosinophils % 0.1 Basophils % 0.3 Absolute Neutrophils 5.70 Absolute Lymphocytes 0.59 L Absolute Monocytes 0.45 Absolute Eosinophils 0.01 Absolute Basophils 0.02 D-Dimer Sodium 137 Potassium 3.7 Chloride 101 Carbon Dioxide 22.9 Anion Gap 13.1 H BUN 22 H Creatinine 1.54 H Estimated GFR/1.73 m2 33.02 Glucose 115 H Lactate 3.1 H* Calcium 8.8 Magnesium 1.6 L Total Bilirubin 1.1 H AST 32 ALT 30 Alkaline Phosphatase 85 Troponin I NT-Pro-B Natriuret Pep Total Protein 7.3 Albumin 3.4 Procalcitonin Urine Color Urine Clarity Urine pH Ur Specific [place] Urine Protein Urine Ketones Urine Blood Urine Nitrite Urine Bilirubin Urine Urobilinogen Ur Leukocyte Esterase Urine RBC Urine WBC Ur Epithelial Cells Urine Crystals Urine Bacteria Urine Casts Urine Mucus Ur Culture Indicated? Urine Glucose 02/08/20 02/08/20 02/08/20 13:40 13:40 13:40 WBC RBC Hgb Hct MCV MCH MCHC RDW Plt Count MPV Immature Gran % Neutrophils % Lymphocytes % Monocytes % Eosinophils % Basophils % Absolute Neutrophils Absolute Lymphocytes Absolute Monocytes Absolute Eosinophils Absolute Basophils D-Dimer 2703 H Sodium Potassium Chloride Carbon Dioxide Anion Gap BUN Creatinine Estimated GFR/1.73 m2 Glucose Lactate Calcium Magnesium Total Bilirubin AST ALT Alkaline Phosphatase Troponin I < 0.05 NT-Pro-B Natriuret Pep Total Protein Albumin Procalcitonin 0.8 Urine Color Urine Clarity Urine pH Ur Specific [place] Urine Protein Urine Ketones Urine Blood Urine Nitrite Urine Bilirubin Urine Urobilinogen Ur Leukocyte Esterase Urine RBC Urine WBC Ur Epithelial Cells Urine Crystals Urine Bacteria Urine Casts Urine Mucus Ur Culture Indicated? Urine Glucose 02/08/20 02/08/20 02/08/20 15:56 16:30 16:30 WBC RBC Hgb Hct MCV MCH MCHC RDW Plt Count MPV Immature Gran % Neutrophils % Lymphocytes % Monocytes % Eosinophils % Basophils % Absolute Neutrophils Absolute Lymphocytes Absolute Monocytes Absolute Eosinophils Absolute Basophils D-Dimer Sodium Potassium Chloride Carbon Dioxide Anion Gap BUN Creatinine Estimated GFR/1.73 m2 Glucose Lactate 1.2 Calcium Magnesium Total Bilirubin AST ALT Alkaline Phosphatase Troponin I NT-Pro-B Natriuret Pep 951 H Total Protein Albumin Procalcitonin Urine Color Yellow Urine Clarity Clear Urine pH 6.0 Ur Specific [place] 1.015 Urine Protein 30 H Urine Ketones Negative Urine Blood Trace-intact H Urine Nitrite Positive H Urine Bilirubin Negative Urine Urobilinogen 0.2 Ur Leukocyte Esterase Moderate H Urine RBC Not Applicable Urine WBC >50 H Ur Epithelial Cells Not Applicable Urine Crystals Negative Urine Bacteria Many Urine Casts Negative Urine Mucus Negative Ur Culture Indicated? Yes Urine Glucose Negative Last Vital Signs Temp 37.1 C 02/08/20 19:20 Pulse 81 02/08/20 19:20 Resp 18 02/08/20 19:20 BP 124/66 02/08/20 19:20 Pulse Ox 98 02/08/20 19:20 COVID-19 Screening Have you,or household,traveled outside [place] in last 14 days?: Yes Had IN PERSON contact w/suspected or confirmed C-19 person: No
[2020-02-08] MEDS: MAGNESIUM SULFATE 2 GM/50 ML BAG IVPB (22:17)
[2020-02-09 02:30] VITALS: BP 120/60; PULSE 103; RESP 16; TEMP 36.6; O2SAT 94
[2020-02-09 07:33] LABS: Abs Immature Grans 0.02 k/cumm (0.0-0.09); Absolute Basophil Count 0.01 k/cumm (0.0-0.2); Absolute Eosinophil Count 0.05 k/cumm (0.0-0.7); Absolute Lymphocyte Count 0.87 k/cumm (1.2-3.4); Absolute Monocyte Count 0.44 k/cumm (0.11-0.7); Absolute Neutrophil Count 3.94 k/cumm (1.2-6.7); Basophils % 0.2; Eosinophils % 0.9; HCT 36.9 % (36.0-46.0); HGB 12.4 g/dL (12.0-15.5); Immature Grans % 0.4 %; Lymphocytes % 16.3; Mean Corp. HGB Concentration 33.6 g/dL (32.0-36.0); Mean Corpuscular Hemoglobin 29.2 pg (27.0-33.0); Mean Corpuscular Volume 86.8 fL (80-95); Mean Platelet Volume 9.3 fL (8.0-11.0); Monocytes % 8.3; Neutrophils % 73.9; RBC 4.25 m/cumm (4.00-5.20); RBC Distribution Width 13.9 % (11.7-14.6); White Blood Cell Count 5.33 k/cumm (4.4-10.8)
[2020-02-09 07:39] LABS: Anion Gap 9.2 mmol/L (3-11); BUN 16 mg/dL (7-18); CO2 22.8 mmol/L (21.0-32.0); CREATININE 1.27 mg/dL (0.55-1.02); Calcium 7.8 mg/dL (8.5-10.1); Chloride 104 mmol/L (98-107); Estimated GFR 41.25 (mL/min/1.73m2); Glucose 110 mg/dL (74-106); Magnesium 1.9 mg/dL (1.8-2.4); Potassium 3.5 mmol/L (3.5-5.1); Sodium 136 mmol/L (136-145)
[2020-02-09 07:59] LABS: Platelet Count 87 x1000/uL (130-400)
[2020-02-09] MEDS: Aspirin E.C. 81 MG TABEC PO (08:38)
[2020-02-09] MEDS: Cholecalciferol (Vitamin D3) 1,000 UNIT TAB 1000 UNITS PO (08:38)
[2020-02-09 09:08] VITALS: BP 132/71; PULSE 94; RESP 17; TEMP 36.7; O2SAT 91
[2020-02-09] MEDS: Normal Saline 1,000 ML 150 ML IV ×2 (09:08→17:44)
--- NOTE | 2020-02-09 09:36 | INITIAL_ITS ---
- If Service Date Differs Date of service: 02/09/20 Time of Service: 14:19 Care Management Initial Assess REASON FOR HOSPITALIZATION:: UTI, Urosepis PAST MEDICAL HISTORY/PAST SURGICAL HISTORY:: Arm pain, CKD, CPAP, HTN, Hypertensive Emergency, kidney stone, obesity, peripheral edema, ulcerative colitis, ileostomy, total colectomy, vein stripping PREVIOUS FUNCTIONAL STATUS/SOCIAL/FAMILY SUPPORTS:: Andreina resides in [place], [place] with her , Vinnie. She has a ileostomy, and a cane she uses more recently due to experiencing dizziness. The couple is independent at baseline. CURRENT FUNCTIONAL STATUS:: Covid pending, Andreina remains in isolation unit at this time. CM continues to follow. ADVANCE DIRECTIVES:: None on file at [facility]. Has patient been provided with info about the portal/API?: No Did the patient sign up for the portal?: No CODE STATUS:: Full Code INSURANCE COVERAGE / FINANCIAL ISSUES:: BC/BS FEP CURRENT HOME/COMMUNITY SERVICES/EQUIPMENT:: Cane, Ileostomy PRIMARY CARE PHYSICIAN:: Jose Eaton, POTENTIAL DISCHARGE NEEDS:: Evaluation for further needs, PCP follow up. PATIENT/FAMILY EDUCATION NEEDS:: Review of discharge instructions, discuss Ask Me Three. ANTICIPATED BARRIERS TO DISCHARGE:: None identified. TRANSPORTATION:: Via private vehicle with family. PLAN:: Andreina will continue to be closely monitored and treated with antibiotics. CM continues to follow and support discharge planning considerations. Andreina will return home, follow up with her PCP and plan of care as prescribed. She will transport via private vehicle with family.
[2020-02-09 12:28] VITALS: BP 129/67; PULSE 86; RESP 20; TEMP 37; O2SAT 94
--- NOTE | 2020-02-09 15:50 | W.PM.PROGNOT ---
Date of Service Date of service: 02/09/20 Time of Service: 15:50 Assessment and Plan Assessment and plan (1) Urinary tract infection: Status: Acute Assessment and plan: due to GNR, present on admission. Continue empiric ceftriaxone. Await blood culture results. Await US renal. Qualifiers: Urinary tract infection type: site unspecified Hematuria presence: without hematuria Qualified Code(s): N39.0 - Urinary tract infection, site not specified (2) Acute kidney injury superimposed on chronic kidney disease: Status: Acute Assessment and plan: Continue IVF. Hold nephrotoxic medications. (3) Lactic acidosis: Status: Resolved Assessment and plan: In setting of impending septic shock. Resolved with abx and IVF. (4) Pulmonary hypertension: Status: Chronic Assessment and plan: Likely BILL. Continue CPAP. (5) Nephrolithiasis: Status: Chronic Assessment and plan: Await US kidneys (6) DVT prophylaxis: Status: Acute Assessment and plan: renally dosed lovenox (7) Discharge planning issues: Status: Acute Assessment and plan: Full code Continues to require hospitalization - admit to inpatient status. Subjective Subjective Interval history since last seen: Reports feeling a little better. Reports feeling a little vertigo still, even in bed. Denies chest pain, reports feeling slight shortness of breath last night, but not now. Does report a dry cough for 2-3 days, but no known COVID contacts. Denies n/v/abdomina/flank pain. Exam Narrative Exam Narrative: General: Very pleasant obese female, laying comfortably in bed HEENT: EOMI, MMM Heart: irregularly irregular rhythm Lungs: CTAB Abdomen: soft, nontender, nondistended Extremities: trace edema BLE's, no c/c. Objective Objective Clinical Data: Abnormal lab results 02/08/20 02/08/20 02/09/20 Range/Units 15:56 16:30 07:12 Plt Count (130-400) x1000/uL Absolute Lymphocytes (1.2-3.4) k/cumm Creatinine 1.27 H (0.55-1.02) mg/dL Glucose 110 H (74-106) mg/dL Calcium 7.8 L (8.5-10.1) mg/dL NT-Pro-B Natriuret Pep 951 H (<300) pg/mL Urine Protein 30 H (Negative) mg/dL Urine Blood Trace-intact H (Negative) Urine Nitrite Positive H (Negative) Ur Leukocyte Esterase Moderate H (Negative) Urine WBC >50 H (0-5) HPF 02/09/20 Range/Units 07:12 Plt Count 87 L (130-400) x1000/uL Absolute Lymphocytes 0.87 L (1.2-3.4) k/cumm Creatinine (0.55-1.02) mg/dL Glucose (74-106) mg/dL Calcium (8.5-10.1) mg/dL NT-Pro-B Natriuret Pep (<300) pg/mL Urine Protein (Negative) mg/dL Urine Blood (Negative) Urine Nitrite (Negative) Ur Leukocyte Esterase (Negative) Urine WBC (0-5) HPF Vital Signs Temperature 37 C 02/09/20 12:28 Temperature Source Temporal Artery Scan 02/09/20 12:28 Pulse 86 02/09/20 12:28 Pulse Rhythm Regular 02/09/20 09:10 Pulse 92 H 02/08/20 19:30 Respiratory Rate 20 02/09/20 12:28 Respiratory Effort Non-Labored 02/09/20 09:10 Respiratory Depth Normal 02/09/20 09:10 Respiratory Pattern Normal 02/09/20 09:10 Blood Pressure 129/67 02/09/20 12:28 Blood Pressure Mean 80 02/08/20 19:01 Blood Pressure Position Supine 02/08/20 13:03 Pulse Oximetry 94 L 02/09/20 12:28 Oxygen Delivery Method Room Air 02/09/20 12:28 Oxygen Flow Rate 0 02/09/20 12:28 Pain Level 0 02/09/20 09:08 Comment 02/08/20 19:20 Intake & Output 02/08/20 02/09/20 02/09/20 23:59 11:59 23:59 Intake Total 1550 / 1550 1000 / 1000 Output Total 300 / 300 Balance 1250 / 1250 1000 / 1000 Weight 102.058 kg Intake: IV 1550 / 1550 1000 / 1000 Output: Urine 300 / 300 Other: Urine Color [place] Urine Appearance Clear Clear Laboratory Results WBC 5.33 k/cumm (4.4-10.8) 02/09/20 07:12 RBC 4.25 m/cumm (4.00-5.20) 02/09/20 07:12 Hgb 12.4 g/dL (12.0-15.5) 02/09/20 07:12 Hct 36.9 % (36.0-46.0) 02/09/20 07:12 MCV 86.8 fL (80-95) 02/09/20 07:12 MCH 29.2 pg (27.0-33.0) 02/09/20 07:12 MCHC 33.6 g/dL (32.0-36.0) 02/09/20 07:12 RDW 13.9 % (11.7-14.6) 02/09/20 07:12 Plt Count 87 x1000/uL (130-400) L 02/09/20 07:12 MPV 9.3 fL (8.0-11.0) 02/09/20 07:12 Immature Gran % 0.4 % 02/09/20 07:12 Neutrophils % 73.9 02/09/20 07:12 Lymphocytes % 16.3 02/09/20 07:12 Monocytes % 8.3 02/09/20 07:12 Eosinophils % 0.9 02/09/20 07:12 Basophils % 0.2 02/09/20 07:12 Absolute Neutrophils 3.94 k/cumm (1.2-6.7) 02/09/20 07:12 Absolute Lymphocytes 0.87 k/cumm (1.2-3.4) L 02/09/20 07:12 Absolute Monocytes 0.44 k/cumm (0.11-0.7) 02/09/20 07:12 Absolute Eosinophils 0.05 k/cumm (0.0-0.7) 02/09/20 07:12 Absolute Basophils 0.01 k/cumm (0.0-0.2) 02/09/20 07:12 D-Dimer 2703 ng/mlFEU (<500) H 02/08/20 13:40 Sodium 136 mmol/L (136-145) 02/09/20 07:12 Potassium 3.5 mmol/L (3.5-5.1) 02/09/20 07:12 Chloride 104 mmol/L (98-107) 02/09/20 07:12 Carbon Dioxide 22.8 mmol/L (21.0-32.0) 02/09/20 07:12 Anion Gap 9.2 mmol/L (3-11) 02/09/20 07:12 BUN 16 mg/dL (7-18) D 02/09/20 07:12 Creatinine 1.27 mg/dL (0.55-1.02) H 02/09/20 07:12 Estimated GFR/1.73 m2 41.25 (mL/min/1.73m2) 02/09/20 07:12 Glucose 110 mg/dL (74-106) H 02/09/20 07:12 Lactate 1.2 mmol/L (0.6-1.4) 02/08/20 16:30 Calcium 7.8 mg/dL (8.5-10.1) L 02/09/20 07:12 Magnesium 1.9 mg/dL (1.8-2.4) 02/09/20 07:12 Total Bilirubin 1.1 mg/dL (0.2-1.0) H 02/08/20 13:40 AST 32 U/L (15-37) 02/08/20 13:40 ALT 30 U/L (14-59) 02/08/20 13:40 Alkaline Phosphatase 85 U/L (46-116) 02/08/20 13:40 Troponin I < 0.05 ng/mL (<0.06) 02/08/20 13:40 NT-Pro-B Natriuret Pep 951 pg/mL (<300) H 02/08/20 16:30 Total Protein 7.3 g/dL (6.4-8.2) 02/08/20 13:40 Albumin 3.4 g/dL (3.4-5.0) 02/08/20 13:40 Procalcitonin 0.8 ng/mL 02/08/20 13:40 Urine Color Yellow (Yellow) 02/08/20 15:56 Urine Clarity Clear (Clear) 02/08/20 15:56 Urine pH 6.0 (5-8) 02/08/20 15:56 Ur Specific [place] 1.015 (1.005-1.025) 02/08/20 15:56 Urine Protein 30 mg/dL (Negative) H 02/08/20 15:56 Urine Ketones Negative mg/dL (Negative) 02/08/20 15:56 Urine Blood Trace-intact (Negative) H 02/08/20 15:56 Urine Nitrite Positive (Negative) H 02/08/20 15:56 Urine Bilirubin Negative (Negative) 02/08/20 15:56 Urine Urobilinogen 0.2 EU/dL (Up TO 0.2) 02/08/20 15:56 Ur Leukocyte Esterase Moderate (Negative) H 02/08/20 15:56 Urine RBC Not Applicable 02/08/20 15:56 Urine WBC >50 HPF (0-5) H 02/08/20 15:56 Ur Epithelial Cells Not Applicable 02/08/20 15:56 Urine Crystals Negative HPF (Negative) 02/08/20 15:56 Urine Bacteria Many HPF (Negative) 02/08/20 15:56 Urine Casts Negative LPF (Negative) 02/08/20 15:56 Urine Mucus Negative (Negative) 02/08/20 15:56 Ur Culture Indicated? Yes 02/08/20 15:56 Urine Glucose Negative mg/dL (Negative) 02/08/20 15:56
--- NOTE | 2020-02-09 16:09 | PHA.REVIEW ---
Pharmacy Admission Review - Admission Clinical Review (Last Updated 02/08/20 @ 21:46 by Zaire Patten) Discharge planning issues (Acute) DVT prophylaxis (Acute) Acute kidney injury superimposed on chronic kidney disease (Acute) DVT prophylaxis (Acute) Hypomagnesemia (Acute) Sepsis associated hypotension (Acute) Elevated brain natriuretic peptide (BNP) level (Acute) Urinary tract infection (Acute) Elevated serum creatinine (Acute) Low blood pressure (Acute) adhesive Allergy (Unknown, Verified 02/08/20 13:10) Penicillins Allergy (Unknown, Verified 02/08/20 13:10) Sulfa (Sulfonamide Antibiotics) Allergy (Unknown, Verified 02/08/20 13:10) felodipine Adverse Reaction (Verified 02/08/20 13:10) daily h/a's and upset stomach Height 5 ft 2 in Weight 102.058 kg - Renal Dosing Renal Dosing: BUN 16 mg/dL (7-18) D 02/09/20 07:12 Creatinine 1.27 mg/dL (0.55-1.02) H 02/09/20 07:12 Medications needing adjustments: Intervened (changed lmwh prophlyactic dose to 40mg as kidney fxn has improved since admission) List of meds needing interventions: other meds ok - Anticoagulation Anticoagulation: Hgb 12.4 g/dL (12.0-15.5) 02/09/20 07:12 Hct 36.9 % (36.0-46.0) 02/09/20 07:12 Plt Count 87 x1000/uL (130-400) L 02/09/20 07:12 Creatinine 1.27 mg/dL (0.55-1.02) H 02/09/20 07:12 DVT Prohphylaxis: Reviewed Medications: Enoxaparin - Relevant Labs Sodium 136 mmol/L (136-145) 02/09/20 07:12 Potassium 3.5 mmol/L (3.5-5.1) 02/09/20 07:12 Chloride 104 mmol/L (98-107) 02/09/20 07:12 Magnesium 1.9 mg/dL (1.8-2.4) 02/09/20 07:12 - DM Control DM Control: Glucose 110 mg/dL (74-106) H 02/09/20 07:12 - Heart Failure/SD Heart Failure/SD: Troponin I < 0.05 ng/mL (<0.06) 02/08/20 13:40 NT-Pro-B Natriuret Pep 951 pg/mL (<300) H 02/08/20 16:30 - BP Control BP Control: Blood Pressure 129/67 Blood Pressure 132/71 - Home Meds Home Med List reviewed: Reviewed Relevent Home Meds Not ordered & why?: Potassium citrate-citric acid solution/packet (entered as patient's own, could switch to a tablet), losartan - holding due to TERE - Current meds Current Medication Order Review: Reviewed
[2020-02-09] MEDS: cefTRIAXone 1 GM/50 ML BAG IVPB ×2 (17:44→20:53)
[2020-02-09] MEDS: Normal Saline Flush 10 ML SYR IVP ×2 (17:45→20:53)
[2020-02-09 17:55] VITALS: BP 128/63; PULSE 85; RESP 19; TEMP 37.2; O2SAT 93
[2020-02-09 21:00] VITALS: BP 142/74; PULSE 91; RESP 18; TEMP 37.1; O2SAT 93
[2020-02-10] VITALS (7 sets, daily range): BP systolic 135–160; BP diastolic 57–89; PULSE 73–100; RESP 15–20; TEMP 36.7–38; O2SAT 90–96
--- NOTE | 2020-02-10 | DI.US_ITS ---
EXAM: US RENAL CLINICAL HISTORY: TERE, urosepsis. TECHNIQUE: Bailey scale, color and spectral Doppler were used. COMPARISON: No exams were available for comparison FINDINGS: Renal size in cm: Right: 10.8 left: 10.1 Echogenicity: Normal. Hydronephrosis: No. Cyst or mass: No. Nephrolithiasis: No. Other findings: None. Bladder:Normal. Ureteral jets: Right: Unable to visualize due to the movement of the bowel. Left: Unable to visualize due to the movement of the bowel Prevoid vol:289 cc Postvoid vol:Patient unable to void. Cc Renal color flow: Symmetric and within normal limits IMPRESSION: Limited examination due to overlying bowel. Unremarkable renal examination. DATA REPOSITORY:
[2020-02-10] MEDS: Normal Saline 1,000 ML 150 ML IV ×3 (00:17→13:27)
[2020-02-10 05:06] LABS: Abs Immature Grans 0.02 k/cumm (0.0-0.09); Absolute Basophil Count 0.01 k/cumm (0.0-0.2); Absolute Eosinophil Count 0.14 k/cumm (0.0-0.7); Absolute Lymphocyte Count 1.18 k/cumm (1.2-3.4); Basophils % 0.2; Eosinophils % 2.9; HCT 34.2 % (36.0-46.0); HGB 11.5 g/dL (12.0-15.5); Immature Grans % 0.4 %; Lymphocytes % 24.8; Mean Corp. HGB Concentration 33.6 g/dL (32.0-36.0); Mean Corpuscular Hemoglobin 29.3 pg (27.0-33.0); Mean Corpuscular Volume 87.2 fL (80-95); Mean Platelet Volume 8.9 fL (8.0-11.0); Monocytes % 10.5; Neutrophils % 61.2; RBC 3.92 m/cumm (4.00-5.20); RBC Distribution Width 13.9 % (11.7-14.6); White Blood Cell Count 4.75 k/cumm (4.4-10.8)
[2020-02-10 05:22] LABS: Anion Gap 10.8 mmol/L (3-11); BUN 15 mg/dL (7-18); CO2 22.2 mmol/L (21.0-32.0); Calcium 7.4 mg/dL (8.5-10.1); Chloride 106 mmol/L (98-107); Estimated GFR 44.04 (mL/min/1.73m2); Glucose 95 mg/dL (74-106); Magnesium 1.8 mg/dL (1.8-2.4); Potassium 3.6 mmol/L (3.5-5.1); Sodium 139 mmol/L (136-145)
[2020-02-10 05:40] LABS: Platelet Count 91 x1000/uL (130-400)
[2020-02-10] MEDS: Aspirin E.C. 81 MG TABEC PO (08:38)
[2020-02-10] MEDS: Cholecalciferol (Vitamin D3) 1,000 UNIT TAB 1000 UNITS PO (08:38)
[2020-02-10 08:39] LABS: COVID-19 RT-PCR UVMMC Result Negative (Negative)
--- NOTE | 2020-02-10 13:38 | W.NUTRFU ---
Date of service: 02/10/20 Time of Service: 13:38 Nutritional Follow up NOTE: 74 year old pt admitted with nephrolithiasis, sepsis and CKD3, hypotention. BMI of 41 indicates morbid obesity. skin intact, dentition adequate to tolerate regular texture meals. Diet ordered Regular with excellent intake (>75%). labs and meds reviewed and not pertinent to nutritional status. Not considered at nutritional risk at this time. Time Spent in Nutritional Counseling and Treatment: 0 time spent face to face
--- NOTE | 2020-02-10 14:22 | DI.US_ITS ---
APPROVED REPORT EXAM: Comprehensive 2D, Doppler, and color-flow Echocardiogram Patient Location: In-Patient Room/Bed: 217 Golf Manager: Meghan Krause RDCS (AE) Indications: SVT Other Information Study Quality: Fair Conclusion Left Ventricle : The left ventricle is normal size. The left ventricular systolic function is normal. The left ventricular ejection fraction is within the normal range. Mild concentric left ventricular hypertrophy. There is normal LV segmental wall motion. Diastolic function is indeterminate. LVEF is 5 4%. Right Ventricle : The right ventricle is normal size. The right ventricular systolic function is norm al. The RVSP is 24mmHg. Atria : The left atrium size is normal. The right atrium size is normal. Valves: There are no hemodynamically significant valvular lesions Great Vessels : IVC is normal in size and collapses >50% with inspiration. Please see remainder of study for further details. Compared to study from February 2019, there is no significant change. Wall motion Left Ventricle The left ventricle is normal size. The left ventricular systolic function is normal. The left ventric ular ejection fraction is within the normal range. Mild concentric left ventricular hypertrophy. Ther e is normal LV segmental wall motion. Diastolic function is indeterminate. There is no ventricular se ptal defect visualized. LVEF is 54%. Right Ventricle The right ventricle is normal size. The right ventricular systolic function is normal. The RVSP is 24 mmHg. Atria The left atrium size is normal. The right atrium size is normal. The interatrial septum is intact wit h no evidence for an atrial septal defect. Aortic Valve Aortic valve is trileaflet. There is no aortic valvular stenosis. Trace aortic regurgitation. Mitral Valve Mild mitral annular calcification. No evidence of mitral valve stenosis. Trace mitral regurgitation. Tricuspid Valve The tricuspid valve is normal in structure. There is no tricuspid valve stenosis. Mild tricuspid regu rgitation. Pulmonic Valve Pulmonic valve is not well visualized. There is no pulmonic valvular stenosis. Trace pulmonic regurgi tation. Great Vessels The aortic root is normal in size. The ascending aorta is moderately dilated. Aortic arch is not well visualized. IVC is normal in size and collapses >50% with inspiration. Pericardium There is no pericardial effusion. 2D Dimensions IVSD d PLAX 1.12 cm F: 0.6-1.0 LV Vol A2C d MOD 95.4 mL LVPW d PLAX 1.10 cm F: 0.6 - 1.0 LV Vol A4C d MOD 110.1 mL LVID d PLAX 4.43 cm F: 3.8 - 5.2 LA vol/ BSA A2C s A-L 9.8 mL/m2 LVDs 3.10 cm F: 2.2 - 3.5 LA vol/ BSA A4C s A-L 18.6 mL/m2 Ao Root d 3.00 cm F: 2.7 - 3.3 LA Vol/ BSA Biplane s A-L 15.0 mL/m2 RA Area A4C 14.29 cm2 LA Area A4C s MOD 14.62 cm2 RA Vol/ BSA A4C s A-L 17.9 mL/m2 LA Area A2C s MOD 9.60 cm2 Ao Asc Diam d 3.70 cm F: 2.3 - 3.1 LV EF A4C MOD 52.2 % LV EF Teichholz 56.6 % LV EF A2C MOD 53.7 % LVEF (Webb's) 51.66 % F: 54 - 74 LV EF Biplane MOD 51.7 % LV Volume 76.92 mL F: 46 - 106 SV 53.07 mL LV Volume Index 38.26 mL/m2 F: 29 - 61 SV Index 26.41 mL/m2 LV Vol Biplane MOD 102.7 mL FS 29.45 % M-Mode TAPSE 2.46 cm (M/F) >1.7 LV Diastology MV E' medial 0.081 (>0.07 m/s) E/A Ratio 0.9 LV E/e MED 15.80 (<14) MV E Vmax 1.28 (0.4-1.3 m/s) MV E' lateral 0.084 (>0.1 m/s) MV A Vmax 1.35 (0.4-1.3 m/s) LV E/e LAT 15.10 (<14) MV E/A Ratio 0.95 MV E/E' medial 15.83 MV E/E' lateral 15.14 Aortic Valve LVOT Area 2.83 cm2 AoV Area Vmax 2.12 cm2 LVOT Vmax 1.15 m/s AoV Area/ BSA (Vmax) 1.06 cm2/m2 LVOT Mean Yohan. 0.74 m/s MATT Mean Yohan. 2.04 cm2 LVOT Peak Grad 5.3 mmHg MATT Mean Yohan. Index 1.01 cm2/m2 LVOT Mean Grad 2.6 mmHg LVOT VTI 0.249 m LVOT Diam s 1.85 cm AoV Vmax 1.54 m/s Velocity Ratio 0.74 AoV Mean Yohan. 1.02 m/s AoV Peak Grad 9.4 mmHg LVOT SV 70.51 mL AoV Mean Grad 4.7 mmHg AoV VTI 0.314 m AoV Area VTI 2.25 cm2 AoV Area/ BSA (VTI) 1.12 cm/m2 Mitral Valve MV DT 149 (160-240 msec) MV PHT 43 msec MV Area PHT 5.09 cm2 Pulmonary Valve PV Vmax 0.86 (0.5-1.5 m/s) RVOT Peak Gr. 2.19 mmHg PV Peak Grad 2.9 mmHg RVOT Mean Gr. 1.15 mmHg PV Mean Grad 2.1 mmHg RVOT VTI 0.154 m PV VTI 0.184 m RVOT Vmax 0.74 m/s Tricuspid Valve TR Peak Grad 21.2 mmHg TR Vmax 2.30 m/s RA Pressure 3.00 mmHg RVSP (TR) 24.2 mmHg
--- NOTE | 2020-02-10 14:31 | W.PM.PROGNOT ---
Date of Service Date of service: 02/10/20 Time of Service: 14:32 Assessment and Plan Assessment and plan (1) UTI due to Klebsiella species: Status: Acute Assessment and plan: Present on admission with h/o nephrolithiasis. Continue ceftriaxone (dose increased to 2 grams daily). Await US renal (2) Gram-negative bacteremia: Status: Acute Assessment and plan: As above (3) Acute kidney injury superimposed on chronic kidney disease: Status: Resolved Assessment and plan: Cr near baseline. D/c IVF. (4) Lactic acidosis: Status: Resolved Assessment and plan: In setting of impending septic shock. Resolved with abx and IVF. (5) Pulmonary hypertension: Status: Chronic Assessment and plan: Likely BILL. Continue CPAP. (6) Paroxysmal SVT (supraventricular tachycardia): Status: Acute Assessment and plan: Await echo. Continue tele (7) Nephrolithiasis: Status: Chronic Assessment and plan: Await US kidneys (8) DVT prophylaxis: Status: Acute Assessment and plan: renally dosed lovenox (9) Discharge planning issues: Status: Acute Assessment and plan: Full code Continues to require hospitalization - admit to inpatient status. Subjective Subjective Interval history since last seen: Ms Torres states she feels a little better today. She states she did not sleep much last night because of all the interruptions (vitals, bloodwork, etc). Denies dizziness, chest pain, shortness of breath,nausea. Had a short burst of SVT at 11 pm - she does not recall having symptoms. Exam Narrative Exam Narrative: General: Very pleasant obese female, laying comfortably in bed, A&Ox3, looks better than yesterday HEENT: EOMI, MMM Heart: RRR, no m/r/g Lungs: CTAB Abdomen: soft, nontender, nondistended Extremities: trace edema BLE's, no c/c. Objective Objective Clinical Data: Abnormal lab results 02/10/20 02/10/20 Range/Units 05:01 05:01 RBC 3.92 L (4.00-5.20) m/cumm Hgb 11.5 L (12.0-15.5) g/dL Hct 34.2 L (36.0-46.0) % Plt Count 91 L (130-400) x1000/uL Absolute Lymphocytes 1.18 L (1.2-3.4) k/cumm Creatinine 1.20 H (0.55-1.02) mg/dL Calcium 7.4 L (8.5-10.1) mg/dL Vital Signs Temperature 37.5 C 02/10/20 11:47 Temperature Source Tympanic 02/10/20 11:47 Pulse 73 02/10/20 11:47 Pulse Rhythm Regular 02/10/20 08:45 Pulse 92 H 02/08/20 19:30 Respiratory Rate 15 02/10/20 11:47 Respiratory Effort Non-Labored 02/10/20 08:45 Respiratory Depth Normal 02/10/20 08:45 Respiratory Pattern Normal 02/10/20 08:45 Blood Pressure 135/70 02/10/20 11:47 Blood Pressure Mean 80 02/08/20 19:01 Blood Pressure Position Supine 02/08/20 13:03 Pulse Oximetry 94 L 02/10/20 11:47 Oxygen Delivery Method Room Air 02/10/20 11:47 Oxygen Flow Rate 0 02/10/20 11:47 Fraction of Inspired Oxygen (FIO2) 21 02/10/20 12:21 Pain Level 0 02/10/20 11:47 Comment 02/10/20 11:26 Intake & Output 02/09/20 02/10/20 02/10/20 23:59 11:59 23:59 Intake Total 999 2192.5 / 3432.5 1240 / 3432.5 Balance 999 2192.5 / 3432.5 1240 / 3432.5 Intake: IV 999 1952.5 / 2952.5 1000 / 2952.5 Oral 240 / 480 240 / 480 Other: Urine Color Yellow Urine Appearance Clear Urine Odor Normal Comment Pt is voiding independently into the toilet. Per pt. report, pt. voided x1 in the toilet. Voiding Methods Toilet Toilet Laboratory Results WBC 4.75 k/cumm (4.4-10.8) 02/10/20 05:01 RBC 3.92 m/cumm (4.00-5.20) L 02/10/20 05:01 Hgb 11.5 g/dL (12.0-15.5) L 02/10/20 05:01 Hct 34.2 % (36.0-46.0) L 02/10/20 05:01 MCV 87.2 fL (80-95) 02/10/20 05:01 MCH 29.3 pg (27.0-33.0) 02/10/20 05:01 MCHC 33.6 g/dL (32.0-36.0) 02/10/20 05:01 RDW 13.9 % (11.7-14.6) 02/10/20 05:01 Plt Count 91 x1000/uL (130-400) L 02/10/20 05:01 MPV 8.9 fL (8.0-11.0) 02/10/20 05:01 Immature Gran % 0.4 % 02/10/20 05:01 Neutrophils % 61.2 02/10/20 05:01 Lymphocytes % 24.8 02/10/20 05:01 Monocytes % 10.5 02/10/20 05:01 Eosinophils % 2.9 02/10/20 05:01 Basophils % 0.2 02/10/20 05:01 Absolute Neutrophils 2.90 k/cumm (1.2-6.7) 02/10/20 05:01 Absolute Lymphocytes 1.18 k/cumm (1.2-3.4) L 02/10/20 05:01 Absolute Monocytes 0.50 k/cumm (0.11-0.7) 02/10/20 05:01 Absolute Eosinophils 0.14 k/cumm (0.0-0.7) 02/10/20 05:01 Absolute Basophils 0.01 k/cumm (0.0-0.2) 02/10/20 05:01 D-Dimer 2703 ng/mlFEU (<500) H 02/08/20 13:40 Sodium 139 mmol/L (136-145) 02/10/20 05:01 Potassium 3.6 mmol/L (3.5-5.1) 02/10/20 05:01 Chloride 106 mmol/L (98-107) 02/10/20 05:01 Carbon Dioxide 22.2 mmol/L (21.0-32.0) 02/10/20 05:01 Anion Gap 10.8 mmol/L (3-11) 02/10/20 05:01 BUN 15 mg/dL (7-18) 02/10/20 05:01 Creatinine 1.20 mg/dL (0.55-1.02) H 02/10/20 05:01 Estimated GFR/1.73 m2 44.04 (mL/min/1.73m2) 02/10/20 05:01 Glucose 95 mg/dL (74-106) 02/10/20 05:01 Lactate 1.2 mmol/L (0.6-1.4) 02/08/20 16:30 Calcium 7.4 mg/dL (8.5-10.1) L 02/10/20 05:01 Magnesium 1.8 mg/dL (1.8-2.4) 02/10/20 05:01 Total Bilirubin 1.1 mg/dL (0.2-1.0) H 02/08/20 13:40 AST 32 U/L (15-37) 02/08/20 13:40 ALT 30 U/L (14-59) 02/08/20 13:40 Alkaline Phosphatase 85 U/L (46-116) 02/08/20 13:40 Troponin I < 0.05 ng/mL (<0.06) 02/08/20 13:40 NT-Pro-B Natriuret Pep 951 pg/mL (<300) H 02/08/20 16:30 Total Protein 7.3 g/dL (6.4-8.2) 02/08/20 13:40 Albumin 3.4 g/dL (3.4-5.0) 02/08/20 13:40 Procalcitonin 0.8 ng/mL 02/08/20 13:40 Urine Color Yellow (Yellow) 02/08/20 15:56 Urine Clarity Clear (Clear) 02/08/20 15:56 Urine pH 6.0 (5-8) 02/08/20 15:56 Ur Specific [place] 1.015 (1.005-1.025) 02/08/20 15:56 Urine Protein 30 mg/dL (Negative) H 02/08/20 15:56 Urine Ketones Negative mg/dL (Negative) 02/08/20 15:56 Urine Blood Trace-intact (Negative) H 02/08/20 15:56 Urine Nitrite Positive (Negative) H 02/08/20 15:56 Urine Bilirubin Negative (Negative) 02/08/20 15:56 Urine Urobilinogen 0.2 EU/dL (Up TO 0.2) 02/08/20 15:56 Ur Leukocyte Esterase Moderate (Negative) H 02/08/20 15:56 Urine RBC Not Applicable 02/08/20 15:56 Urine WBC >50 HPF (0-5) H 02/08/20 15:56 Ur Epithelial Cells Not Applicable 02/08/20 15:56 Urine Crystals Negative HPF (Negative) 02/08/20 15:56 Urine Bacteria Many HPF (Negative) 02/08/20 15:56 Urine Casts Negative LPF (Negative) 02/08/20 15:56 Urine Mucus Negative (Negative) 02/08/20 15:56 Ur Culture Indicated? Yes 02/08/20 15:56 Urine Glucose Negative mg/dL (Negative) 02/08/20 15:56 COVID-19 PCR Negative (Negative) 02/08/20 13:58 Nasopharyn COVID-19 PCR Not Applicable 02/08/20 13:58 Ref Test Perform Site [facility] lab 02/08/20 13:58
--- NOTE | 2020-02-10 16:16 | PDOC.CMPRO ---
Care Management Progress Note S/O: Andreina was sleeping soundly, RN in room when CM attempted to meet with her. Per RN, she is eating well and up independently in her room. CM continues to follow. A: 74 year old female admitted to [facility] 02/08/20 for UTI, Urosepsis P: Andreina will continue to be closely monitored and treated with antibiotics, anticipate she will transition to PO meds and return home when ready per MD. CM continues to follow and support discharge planning considerations. Andreina will follow up with her PCP and plan of care as prescribed. She will transport via private vehicle with family.
[2020-02-10] MEDS: cefTRIAXone 2 GM/50 ML BAG IVPB (17:42)
[2020-02-10] MEDS: Normal Saline 500 ML 30 ML IV (17:42)
[2020-02-10] MEDS: Acetaminophen 325 MG TAB PO (18:50)
[2020-02-10] MEDS: Cyclobenzaprine 10 MG TAB PO (18:51)
[2020-02-11] VITALS (8 sets, daily range): BP systolic 120–151; BP diastolic 70–85; PULSE 60–98; RESP 17–20; TEMP 36.3–37.4; O2SAT 91–95
--- NOTE | 2020-02-11 | DI.RAD_ITS ---
EXAM: 2D digital imaging was performed. CLINICAL HISTORY: ?SBO, ABD PAIN, NAUSEA, LOW OSTOMY OUTPUT. COMPARISON: CR,XR XR PORTABLE CHEST AP from 02/08/2020 TECHNIQUE: Supine and upright views of the abdomen was performed. FINDINGS: LUNG BASES: Increased lung markings are seen in the bases when compared to the examination from 2019. This may represent atelectasis, pneumonia or edema. BOWEL GAS PATTERN: Nondistended. FREE AIR: None. CALCIFICATIONS: No radiopaque calcifications. OSSEOUS STRUCTURES: Left convex scoliosis of the lumbar spine. Mild to moderate degenerative changes are seen in the spine. OTHER FINDINGS: None. IMPRESSION: 1. No acute abdominal process. 2. Bilateral basilar infiltrates. DATA REPOSITORY: RADIATION DOSE DELIVERED:
[2020-02-11 07:04] LABS: Abs Immature Grans 0.04 k/cumm (0.0-0.09); Absolute Basophil Count 0.02 k/cumm (0.0-0.2); Absolute Eosinophil Count 0.14 k/cumm (0.0-0.7); Absolute Lymphocyte Count 1.15 k/cumm (1.2-3.4); Absolute Monocyte Count 0.78 k/cumm (0.11-0.7); Basophils % 0.3; HCT 34.8 % (36.0-46.0); HGB 11.8 g/dL (12.0-15.5); Immature Grans % 0.6 %; Lymphocytes % 16.5; Mean Corp. HGB Concentration 33.9 g/dL (32.0-36.0); Mean Corpuscular Hemoglobin 29.2 pg (27.0-33.0); Mean Corpuscular Volume 86.1 fL (80-95); Mean Platelet Volume 9.3 fL (8.0-11.0); Monocytes % 11.2; Neutrophils % 69.4; Platelet Count 123 x1000/uL (130-400); RBC 4.04 m/cumm (4.00-5.20); RBC Distribution Width 13.8 % (11.7-14.6); White Blood Cell Count 6.99 k/cumm (4.4-10.8)
[2020-02-11 07:06] LABS: Absolute Neutrophil Count 4.85 k/cumm (1.2-6.7)
[2020-02-11 07:19] LABS: Anion Gap 10.2 mmol/L (3-11); BUN 14 mg/dL (7-18); CO2 23.8 mmol/L (21.0-32.0); CREATININE 1.19 mg/dL (0.55-1.02); Calcium 8.1 mg/dL (8.5-10.1); Chloride 103 mmol/L (98-107); Estimated GFR 44.46 (mL/min/1.73m2); Glucose 102 mg/dL (74-106); Magnesium 1.8 mg/dL (1.8-2.4); Potassium 3.9 mmol/L (3.5-5.1); Sodium 137 mmol/L (136-145)
[2020-02-11] MEDS: Cholecalciferol (Vitamin D3) 1,000 UNIT TAB 1000 UNITS PO (08:06)
[2020-02-11] MEDS: Cyclobenzaprine 10 MG TAB PO ×3 (08:06→20:30)
[2020-02-11] MEDS: Aspirin E.C. 81 MG TABEC PO (08:06)
[2020-02-11] MEDS: Acetaminophen 325 MG TAB PO ×3 (08:06→20:30)
[2020-02-11 08:17] LABS: Procalcitonin 0.2 ng/mL
[2020-02-11 09:02] LABS: ALT 25 U/L (14-59); AST 31 U/L (15-37); Albumin 2.8 g/dL (3.4-5.0); Alkaline Phosphatase 81 U/L (46-116); Bilirubin, Direct 0.31 mg/dL (0.00-0.20); Bilirubin, Total 0.9 mg/dL (0.2-1.0); Lipase 74 U/L (73-393); Total Protein 6.5 g/dL (6.4-8.2)
--- NOTE | 2020-02-11 11:28 | W.PM.PROGNOT ---
Date of Service Date of service: 02/11/20 Time of Service: 11:28 Assessment and Plan Assessment and plan (1) UTI due to Klebsiella species: Status: Acute Assessment and plan: Present on admission. No evidence of kidney ston on US renal. Continue ceftriaxone (dose increased to 2 grams daily). Encourage ambulation. On discharge, plan to complete a 10 day course of antibiotics with oral abx (cefpodoxime). (2) Bacteremia due to Klebsiella pneumoniae: Status: Acute Assessment and plan: As above (3) Atelectasis of both lungs: Status: Acute Assessment and plan: The patient needs to be encouraged to ambulate and spend less time in bed. Also, prescribe IS. Would repeat CXR tomorrow to ensure that the bibasilar infiltrates have improved, but I strongly doubt PNA. (4) Acute kidney injury superimposed on chronic kidney disease: Status: Resolved Assessment and plan: Cr near baseline. Patient is euvolemic. (5) Lactic acidosis: Status: Resolved Assessment and plan: In setting of impending septic shock. Resolved with abx and IVF. (6) Pulmonary hypertension: Status: Chronic Assessment and plan: Likely due to BILL. Continue CPAP. (7) Paroxysmal SVT (supraventricular tachycardia): Status: Acute Assessment and plan: Echo reveals pulmonary hypertension, but no other pathology. Ok to d/c tele. SVT was likely due to acute illness. (8) Nephrolithiasis: Status: Chronic Assessment and plan: No kidney stones seen on US kidneys on this admission. (9) GERD (gastroesophageal reflux disease): Status: Chronic Assessment and plan: I suspect that the patient's symptoms this morning were GERD. Start PPI. (10) BILL on CPAP: Status: Chronic Assessment and plan: Continue CPAP. (11) DVT prophylaxis: Status: Acute Assessment and plan: renally dosed lovenox (12) Discharge planning issues: Status: Acute Assessment and plan: Full code Plan on discharge home tomorrow assuming patient's PO picks up and her atelectasis is better. Subjective Subjective Interval history since last seen: Ms Torres stated she did not feel well this morning - but that she felt better after eating. She specifically denies abdominal pain, but had some nausea, admits that her PO intake in the hospital has been pretty poor. She was resistant about lunch - states she does not normally eat lunch. Her ostomy does have output, but not a lot today. Denies dizziness, chest pain, endorses some shortness of breath today and nonproductive cough x 2 days. Per nursing, her O2 sats this morning were 90-91% on her CPAP - 2L of O2 were placed. Exam Narrative Exam Narrative: General: Very pleasant obese female, laying comfortably in bed, A&Ox3, looks tired. Wearing 2 L of O2 (new). HEENT: EOMI, MMM Heart: RRR, no m/r/g Lungs: CTAB Abdomen: soft, nontender, nondistended, RLQ ostomy with a small amount liquid output - I cannot tell the color as the bag is not transparent. Extremities: trace edema BLE's, no c/c, trace pedal pulses B. Objective Objective Clinical Data: Abnormal lab results 02/11/20 02/11/20 Range/Units 06:38 06:38 Hgb 11.8 L (12.0-15.5) g/dL Hct 34.8 L (36.0-46.0) % Plt Count 123 L (130-400) x1000/uL Absolute Lymphocytes 1.15 L (1.2-3.4) k/cumm Absolute Monocytes 0.78 H (0.11-0.7) k/cumm Creatinine 1.19 H (0.55-1.02) mg/dL Calcium 8.1 L (8.5-10.1) mg/dL Conjugated Bilirubin 0.31 H (0.00-0.20) mg/dL Albumin 2.8 L (3.4-5.0) g/dL Vital Signs Temperature 36.3 C L 02/11/20 08:45 Temperature Source Temporal Artery Scan 02/11/20 08:45 Pulse 98 H 02/11/20 08:45 Pulse Rhythm Regular 02/10/20 20:07 Pulse 92 H 02/08/20 19:30 Respiratory Rate 20 02/11/20 08:45 Respiratory Effort Non-Labored 02/10/20 20:07 Respiratory Depth Normal 02/10/20 20:07 Respiratory Pattern Normal 02/10/20 20:07 Blood Pressure 148/82 H 02/11/20 08:45 Blood Pressure Mean 80 02/08/20 19:01 Blood Pressure Position Supine 02/08/20 13:03 Pulse Oximetry 95 02/11/20 08:45 Oxygen Delivery Method Nasal Cannula 02/11/20 08:45 Oxygen Flow Rate 2 02/11/20 08:45 Fraction of Inspired Oxygen (FIO2) 21 02/10/20 23:21 Pain Level 0 02/11/20 09:06 Comment 02/11/20 08:45 Intake & Output 02/10/20 02/10/20 02/11/20 11:59 23:59 11:59 Intake Total 2192.5 / 3693.000 1500.500 / 3693.000 60 / 60 Balance 2192.5 / 3693.000 1500.500 / 3693.000 60 / 60 Weight 106.6 kg Intake: IV 1952.5 / 3213.000 1260.500 / 3213.000 Oral 240 / 480 240 / 480 60 / 60 Other: Urine Color Yellow Urine Appearance Clear Clear Urine Odor Normal Comment Per pt. report, pt. voided x1 in the toilet. Pt is voiding independently into the toilet. Per pt. report, pt. voided x1 in the toilet. Voiding Methods Toilet Toilet Toilet Laboratory Results WBC 6.99 k/cumm (4.4-10.8) D 02/11/20 06:38 RBC 4.04 m/cumm (4.00-5.20) 02/11/20 06:38 Hgb 11.8 g/dL (12.0-15.5) L 02/11/20 06:38 Hct 34.8 % (36.0-46.0) L 02/11/20 06:38 MCV 86.1 fL (80-95) 02/11/20 06:38 MCH 29.2 pg (27.0-33.0) 02/11/20 06:38 MCHC 33.9 g/dL (32.0-36.0) 02/11/20 06:38 RDW 13.8 % (11.7-14.6) 02/11/20 06:38 Plt Count 123 x1000/uL (130-400) L 02/11/20 06:38 MPV 9.3 fL (8.0-11.0) 02/11/20 06:38 Immature Gran % 0.6 % 02/11/20 06:38 Neutrophils % 69.4 02/11/20 06:38 Lymphocytes % 16.5 02/11/20 06:38 Monocytes % 11.2 02/11/20 06:38 Eosinophils % 2.0 02/11/20 06:38 Basophils % 0.3 02/11/20 06:38 Absolute Neutrophils 4.85 k/cumm (1.2-6.7) 02/11/20 06:38 Absolute Lymphocytes 1.15 k/cumm (1.2-3.4) L 02/11/20 06:38 Absolute Monocytes 0.78 k/cumm (0.11-0.7) H 02/11/20 06:38 Absolute Eosinophils 0.14 k/cumm (0.0-0.7) 02/11/20 06:38 Absolute Basophils 0.02 k/cumm (0.0-0.2) 02/11/20 06:38 D-Dimer 2703 ng/mlFEU (<500) H 02/08/20 13:40 Sodium 137 mmol/L (136-145) 02/11/20 06:38 Potassium 3.9 mmol/L (3.5-5.1) 02/11/20 06:38 Chloride 103 mmol/L (98-107) 02/11/20 06:38 Carbon Dioxide 23.8 mmol/L (21.0-32.0) 02/11/20 06:38 Anion Gap 10.2 mmol/L (3-11) 02/11/20 06:38 BUN 14 mg/dL (7-18) 02/11/20 06:38 Creatinine 1.19 mg/dL (0.55-1.02) H 02/11/20 06:38 Estimated GFR/1.73 m2 44.46 (mL/min/1.73m2) 02/11/20 06:38 Glucose 102 mg/dL (74-106) 02/11/20 06:38 Lactate 1.2 mmol/L (0.6-1.4) 02/08/20 16:30 Calcium 8.1 mg/dL (8.5-10.1) L 02/11/20 06:38 Magnesium 1.8 mg/dL (1.8-2.4) 02/11/20 06:38 Total Bilirubin 0.9 mg/dL (0.2-1.0) 02/11/20 06:38 Conjugated Bilirubin 0.31 mg/dL (0.00-0.20) H 02/11/20 06:38 AST 31 U/L (15-37) 02/11/20 06:38 ALT 25 U/L (14-59) 02/11/20 06:38 Alkaline Phosphatase 81 U/L (46-116) 02/11/20 06:38 Troponin I < 0.05 ng/mL (<0.06) 02/08/20 13:40 NT-Pro-B Natriuret Pep 951 pg/mL (<300) H 02/08/20 16:30 Total Protein 6.5 g/dL (6.4-8.2) 02/11/20 06:38 Albumin 2.8 g/dL (3.4-5.0) L 02/11/20 06:38 Lipase 74 U/L (73-393) 02/11/20 06:38 Procalcitonin 0.2 ng/mL 02/11/20 06:38 Urine Color Yellow (Yellow) 02/08/20 15:56 Urine Clarity Clear (Clear) 02/08/20 15:56 Urine pH 6.0 (5-8) 02/08/20 15:56 Ur Specific [place] 1.015 (1.005-1.025) 02/08/20 15:56 Urine Protein 30 mg/dL (Negative) H 02/08/20 15:56 Urine Ketones Negative mg/dL (Negative) 02/08/20 15:56 Urine Blood Trace-intact (Negative) H 02/08/20 15:56 Urine Nitrite Positive (Negative) H 02/08/20 15:56 Urine Bilirubin Negative (Negative) 02/08/20 15:56 Urine Urobilinogen 0.2 EU/dL (Up TO 0.2) 02/08/20 15:56 Ur Leukocyte Esterase Moderate (Negative) H 02/08/20 15:56 Urine RBC Not Applicable 02/08/20 15:56 Urine WBC >50 HPF (0-5) H 02/08/20 15:56 Ur Epithelial Cells Not Applicable 02/08/20 15:56 Urine Crystals Negative HPF (Negative) 02/08/20 15:56 Urine Bacteria Many HPF (Negative) 02/08/20 15:56 Urine Casts Negative LPF (Negative) 02/08/20 15:56 Urine Mucus Negative (Negative) 02/08/20 15:56 Ur Culture Indicated? Yes 02/08/20 15:56 Urine Glucose Negative mg/dL (Negative) 02/08/20 15:56 COVID-19 PCR Negative (Negative) 02/08/20 13:58 Nasopharyn COVID-19 PCR Not Applicable 02/08/20 13:58 Ref Test Perform Site [facility] lab 02/08/20 13:58 CXR: 1. No acute abdominal process. 2. Bilateral basilar infiltrates. Echo; Left Ventricle : The left ventricle is normal size. The left ventricular systolic function is normal. The left ventricular ejection fraction is within the normal range. Mild concentric left ventricular hypertrophy. There is normal LV segmental wall motion. Diastolic function is indeterminate. LVEF is 54%. Right Ventricle : The right ventricle is normal size. The right ventricular systolic function is normal. The RVSP is 24mmHg. Atria : The left atrium size is normal. The right atrium size is normal. Valves: There are no hemodynamically significant valvular lesions Great Vessels : IVC is normal in size and collapses >50% with inspiration. Please see remainder of study for further details. Compared to study from February 2019, there is no significant change. US renal: Limited examination due to overlying bowel. Unremarkable renal examination.
[2020-02-11] MEDS: Pantoprazole 40 MG VIAL IVP (12:06)
[2020-02-11] MEDS: Normal Saline Flush 10 ML SYR IVP (12:06)
--- NOTE | 2020-02-11 12:46 | PDOC.CMPRO ---
- If Service Date Differs Date of service: 02/11/20 Time of Service: 12:46 Care Management Progress Note S/O: Andreina was lying in bed when CM met with her. She stated that she is feeling much better than when she arrived. She did share that she is having some discomfort in her back which she attributes to laying around too much. Adnreina also shared that she experienced rapid, heavy breathing when she was ambulating. She stated that she was not wearing oxygen at the time, but has been using it sometimes in her room. She stated that the provider is aware. Andreina revealed that she anticipated being discharged home tomorrow on oral antibiotics. A: 74 year old female admitted to [facility] 02/08/20 for UTI, Urosepsis P: Andreina will continue to be treated with IV antibiotics for bacteremia and a UTI. She may be transitioned to oral agents when she returns home. CM continues to follow and support discharge planning considerations. Andreina will follow up with her PCP and plan of care as prescribed. She will transport via private vehicle with family. cc:
[2020-02-11] MEDS: Normal Saline 500 ML 30 ML IV (18:33)
[2020-02-11] MEDS: cefTRIAXone 2 GM/50 ML BAG IVPB (18:34)
[2020-02-12] MEDS: Acetaminophen 325 MG TAB PO (06:02)
[2020-02-12] MEDS: Cyclobenzaprine 10 MG TAB PO (06:02)
[2020-02-12 06:47] LABS: Abs Immature Grans 0.11 k/cumm (0.0-0.09); Absolute Basophil Count 0.02 k/cumm (0.0-0.2); Absolute Eosinophil Count 0.25 k/cumm (0.0-0.7); Absolute Lymphocyte Count 1.16 k/cumm (1.2-3.4); Absolute Monocyte Count 0.78 k/cumm (0.11-0.7); Absolute Neutrophil Count 3.49 k/cumm (1.2-6.7); Basophils % 0.3; Eosinophils % 4.3; HCT 33.7 % (36.0-46.0); HGB 11.5 g/dL (12.0-15.5); Immature Grans % 1.9 %; Mean Corp. HGB Concentration 34.1 g/dL (32.0-36.0); Mean Corpuscular Hemoglobin 29.3 pg (27.0-33.0); Mean Platelet Volume 8.9 fL (8.0-11.0); Monocytes % 13.4; Neutrophils % 60.1; Platelet Count 148 x1000/uL (130-400); RBC 3.92 m/cumm (4.00-5.20); RBC Distribution Width 13.7 % (11.7-14.6); White Blood Cell Count 5.81 k/cumm (4.4-10.8)
--- NOTE | 2020-02-12 07:00 | HOME_ITS ---
Home Ventilator Equipment Home care company Reason: Obstructive Sleep Apnea Make: Respironics Model: Dreamstation Mask type: Nasal pillows Mask size: Small Mode: CPAP Settings: Auto-titrate min 7/ max 12 on RA Oxygen bleed in (lpm): Condition: Good Date last checked: 02/09/20 Year of last sleep study: [facility] Daily Comments: DME: [facility]
[2020-02-12 07:08] LABS: Anion Gap 9.6 mmol/L (3-11); BUN 13 mg/dL (7-18); CO2 23.4 mmol/L (21.0-32.0); Calcium 8.3 mg/dL (8.5-10.1); Chloride 104 mmol/L (98-107); Estimated GFR 40.15 (mL/min/1.73m2); Glucose 105 mg/dL (74-106); Magnesium 1.8 mg/dL (1.8-2.4); Potassium 3.6 mmol/L (3.5-5.1); Sodium 137 mmol/L (136-145)
[2020-02-12 07:22] VITALS: BP 144/80; PULSE 74; RESP 18; TEMP 36.5; O2SAT 93
[2020-02-12] MEDS: Aspirin E.C. 81 MG TABEC PO (08:11)
[2020-02-12] MEDS: Cholecalciferol (Vitamin D3) 1,000 UNIT TAB 1000 UNITS PO (08:11)
--- NOTE | 2020-02-12 10:20 | DI.RAD_ITS ---
EXAM: XR CHEST 2V PA LATERAL CLINICAL HISTORY: shortness of breath, bibasilar infiltrates TECHNIQUE: 2D digital imaging was performed. COMPARISON: CR XR CHEST 2V PA LATERAL from 03/20/2019 FINDINGS: MEDIASTINUM: Normal. HEART: Normal. PULMONARY VASCULATURE: Normal. LUNGS: Clear. PLEURAL SPACE: No pleural effusion or pneumothorax. BONE:Degenerative changes in the spine. OTHER FINDINGS:Normal. IMPRESSION: No acute pulmonary findings. DATA REPOSITORY: RADIATION DOSE DELIVERED:
--- NOTE | 2020-02-12 13:38 | PDOC.CMDIS ---
LACE Index Scoring Tool - Questions: Length of Stay (in days): 3 Acuity (Admit via E.D.?): Yes Comorbidities: Liver or Renal Disease E.D. Visits: 3 - Answers: Total Score: 14 Risk of Readmission: High Risk Care Management Discharge Reason for Hospitalization: UTI, Urosepis Discharge Plan: Andreina will return home when ready per MD. She will be prescribed an oral course of antibiotics, per provider. She will follow up with her PCP and plan of care as prescribed. She will transport via private vehicle with her . Patient/Family Education Needs: Review discharge instructions, discuss Ask Me Three.
--- NOTE | 2020-02-12 15:28 | DSE_ITS ---
Date of service: 02/12/20 Time of Service: 15:29 DS: Diagnosis Discharge Diagnosis (1) UTI due to Klebsiella species: Status: Acute (2) Bacteremia due to Klebsiella pneumoniae: Status: Acute (3) Atelectasis of both lungs: Status: Resolved (4) Acute kidney injury superimposed on chronic kidney disease: Status: Resolved (5) Lactic acidosis: Status: Resolved (6) Pulmonary hypertension: Status: Chronic (7) Paroxysmal SVT (supraventricular tachycardia): Status: Resolved (8) Nephrolithiasis: Status: Chronic (9) GERD (gastroesophageal reflux disease): Status: Chronic (10) BILL on CPAP: Status: Chronic (11) COVID-19 ruled out: Status: Ruled-out (12) Dehydration: Status: Acute (13) Hiatal hernia: Status: Chronic (14) Chronic back pain: Status: Chronic (15) Pulmonary nodule: Status: Chronic Discharge Plan Disposition Patient Disposition: HOME Condition: Improving Discharge Details Chief Complaint: GenMedical Clinical Impression: Elevated brain natriuretic peptide (BNP) level, Urinary tract infection, Elevated serum creatinine, Low blood pressure Reason For Visit: UTI, UROSEPSIS Admit Date/Time: 02/09/20 16:02 Admit Provider: Zaire Patten Attending Provider: Zaire Patten Primary Care Provider: Jose Eaton ED Provider: Pollo Mane Hospital Course Hospital Course: Ms Torres is a 74 year old female with PMHx of nephrolithiasis, as well as CKD II, HTN, BILL, on CPAP, who was admitted to [facility] hospitalist service on 02/08/2020 with Klebsiella UTI and bacteremia, but without signs of SIRS. She as treated with ceftriaxone IV, to which her Klebsiella was sensitive. She did have evidence of TERE on CKD and mild lactic acidosis, for which her ARB was held and IVF were administered. Repeat blood cultures done on 02/10/2020 were negative. A renal ultrasound was performed to ensure that the patient did not have kidney stones on this admission - and she did not. While in the hospital the patient had a burst of non-sustained SVT - for this she was monitored on telemetry, and there were no recurrences. This was felt to be situational due to acute illness, and no new medication was introduced. Echocardiogram was done and showed LVEF of 54%, RVSP of 24mmHg, and indeterminate diastolic dysfunction. She did develop a nonproductive cough here. Her COVID-19 was negative. CXR showed atelectasis. The patient also had symptoms consistent with GERD. She was initiated on incentive spirometry and a PPI. She has a history of a hiatal hernia, which increases her risk of GERD. She is being discharged home today with 1 week of cefpodoxime. She is to follow up with her PCP on her known pulmonary nodule. Care for patient as well as completion of her discharge summary on day of discharge took 40 minutes. Home Meds and New Rx's Prescriptions: New pantoprazole [Protonix] 40 mg tablet,delayed release (DR/EC) 40 mg PO DAILY Qty: 30 RF: 0 cefpodoxime 200 mg tablet 200 mg PO Q12H Qty: 14 RF: 0 Continued losartan [Cozaar] 50 mg tablet 50 mg PO BID Qty: 180 RF: 3 meclizine 25 mg tablet,chewable 25 mg PO BID PRN (Reason: dizziness) Qty: 40 RF: 0 triamcinolone acetonide 80 GM ointment 80 gm Topical wkly RF: 0 potassium citrate-citric acid [Cytra K Crystals] 1 EACH packet 1 ea PO BID RF: 0 cholecalciferol (vitamin D3) [Vitamin D3] 25 mcg (1,000 unit) capsule 1,000 unit PO DAILY Qty: 90 RF: 3 cyclobenzaprine 5 mg tablet 5 - 10 mg PO TID PRN (Reason: back pain) Qty: 60 RF: 0 aspirin 81 mg Tablet,Delayed Release (Dr/Ec) 81 mg PO DAILY Qty: 30 RF: 0 Discontinued Ibuprofen [Motrin Ib] 200 MG tablet 600 mg PO Q6H 5 Days Qty: 30 RF: 0 Discharge Instructions Instructions: Cefpodoxime Proxetil (By mouth), Pantoprazole (By mouth), Urinary Tract Infection in Women (DC), Gastroesophageal Reflux Disease (DC), Bacteremia (DC) Additional Instructions: Finish your antibiotics as prescribed. Drink plenty of water. Return to the hospital with any fever, bleeding, chest pain, shortness of breath. Referrals: Jose Eaton DO [Primary Care Provider] - Activity:: Activity as Tolerated Equipment/Supplies:: No Equipment Needed Diet:: As Tolerated Discharge Orders Discharge Orders: Discharge Order (Routine); Ordered 02/12/20 Ordered By: Kiley Hills DS: Summary Status at Discharge Functional status at discharge: independent ambulation Overall status at discharge: patient is back to baseline Mental Status: mental status grossly normal Speech and Movement: speech and movement normal Mood: congruent mood Affect: normal affect Exam Narrative Exam Narrative: General: Very pleasant obese female, laying comf ortably in bed, A&Ox3, looks better. HEENT: EOMI, MMM Heart: RRR, no m/r/g Lungs: CTAB Abdomen: soft, nontender, nondistended, RLQ ostomy with a small amount liquid output - I cannot tell the color as the bag is not transparent. Extremities: trace edema BLE's, no c/c, trace pedal pulses B. Psych Mental Status: mental status grossly normal Speech and Movement: speech and movement normal Mood: congruent mood Affect: normal affect DS: Data Vitals/I&O Vitals and I&O: Vital Signs Temperature 36.5 C 02/12/20 07:22 Temperature Source Tympanic 02/12/20 07:22 Pulse 74 02/12/20 07:22 Pulse Rhythm Regular 02/12/20 08:19 Pulse 92 H 02/08/20 19:30 Respiratory Rate 18 02/12/20 07:22 Respiratory Effort Non-Labored 02/12/20 08:19 Respiratory Depth Normal 02/12/20 08:19 Respiratory Pattern Normal 02/12/20 08:19 Blood Pressure 144/80 H 02/12/20 07:22 Blood Pressure Mean 80 02/08/20 19:01 Blood Pressure Position Supine 02/08/20 13:03 Pulse Oximetry 93 L 02/12/20 07:22 Oxygen Delivery Method Room Air 02/12/20 07:22 Oxygen Flow Rate 0 02/12/20 07:22 Fraction of Inspired Oxygen (FIO2) 21 02/12/20 11:07 Pain Level 0 02/12/20 07:22 Comment 02/11/20 14:46 Intake & Output 02/11/20 02/12/20 02/12/20 23:59 11:59 23:59 Intake Total 910.5 / 970.5 120 / 360 240 / 360 Output Total 400 / 850 450 / 850 Balance 910.5 / 970.5 -280 / -490 -210 / -490 Weight 105.6 kg Intake: IV 70.5 / 70.5 Oral 840 / 900 120 / 360 240 / 360 Output: Urine 400 / 850 450 / 850 Other: Urine Color Light Susana Yellow Urine Appearance Clear Clear Clear Urine Odor Normal Comment Per pt. report, pt. voided x1 in the toilet. Voiding Methods Toilet Toilet Data Completed and Pending Completed studies during hospitalization [Text1]: CXR: No acute pulmonary findings. CTA chest: 1. No evidence of pulmonary embolism, thoracic aortic dissection or aneurysm. 2. 0.6 cm noncalcified pulmonary nodule. It is shown slight interval increase in size compared to the examination from 2010. For patients at low risk, recommend follow-up CT scan in 12 months. If unchanged, no further follow-up. For high risk patient is (history of smoking or other known risk fractures), follow-up CT scan of the chest in 6-12 months is recommended. US renal: Limited examination due to overlying bowel. Unremarkable renal examination. Echo: Left Ventricle : The left ventricle is normal size. The left ventricular systolic function is normal. The left ventricular ejection fraction is within the normal range. Mild concentric left ventricular hypertrophy. There is normal LV segmental wall motion. Diastolic function is indeterminate. LVEF is 54%. Right Ventricle : The right ventricle is normal size. The right ventricular systolic function is normal. The RVSP is 24mmHg. Atria : The left atrium size is normal. The right atrium size is normal. Valves: There are no hemodynamically significant valvular lesions Great Vessels : IVC is normal in size and collapses >50% with inspiration. Please see remainder of study for further details. Compared to study from February 2019, there is no significant change. XR abdomen 02/11/2020: 1. No acute abdominal process. 2. Bilateral basilar infiltrates CXR 02/12/2020: No acute pulmonary findings. Labs on day of discharge: Labs from last 24 hours 02/12/20 02/12/20 06:25 06:25 WBC 5.81 RBC 3.92 L Hgb 11.5 L Hct 33.7 L MCV 86.0 MCH 29.3 MCHC 34.1 RDW 13.7 Plt Count 148 MPV 8.9 Immature Gran % 1.9 Neutrophils % 60.1 Lymphocytes % 20.0 Monocytes % 13.4 Eosinophils % 4.3 Basophils % 0.3 Absolute Neutrophils 3.49 Absolute Lymphocytes 1.16 L Absolute Monocytes 0.78 H Absolute Eosinophils 0.25 Absolute Basophils 0.02 Sodium 137 Potassium 3.6 Chloride 104 Carbon Dioxide 23.4 Anion Gap 9.6 BUN 13 Creatinine 1.30 H Estimated GFR/1.73 m2 40.15 Glucose 105 Calcium 8.3 L Magnesium 1.8 Preliminary micro results at discharge 02/10/20 05:10 Blood Culture - Preliminary Blood NO GROWTH 48 HOURS 02/10/20 05:01 Blood Culture - Preliminary Blood NO GROWTH 48 HOURS 02/08/20 14:33 Blood Culture - Preliminary Blood NO GROWTH 72 HOURS [facility] Medical History (Updated 02/12/20 @ 15:59 by Kiley Hills MD) Arm pain (Resolved) CKD (chronic kidney disease), stage III (Chronic) CPAP (continuous positive airway pressure) dependence (Chronic) HTN (hypertension) (Chronic) Hypertensive emergency (Acute) Kidney stone (Chronic 06/21/03) STENT PLACED Obesity (Chronic) Peripheral edema (Resolved) Pulmonary nodule (Chronic) Ulcerative colitis (Inactive) colectomy Surgical History (Updated 02/08/20 @ 21:46 by Zaire Patten) History of ileostomy (Inactive) History of total colectomy (Inactive) History of total left knee replacement (TKR) (Inactive) TKA: 1994, tibial revision 2004. History of total right knee replacement (TKR) (Inactive) TKA: 1996, complete revision 2009. Hysterectomy, Laproscopic (~1980) Ileostomy (~1974) Replacement of total knee joint left-1995 WITH REVISION 2004; right-1996 with revision 2009 Status post laparoscopic hysterectomy (Inactive) Status post vein stripping (Inactive) Stent placement left sided ureteral stent 2003 Total colectomy (~1974) Vein stripping 2002 Social History Smoking/Tobacco Use Status: Never Alcohol Intake: never Drug use: Never Substance use type: does not use Do you feel safe at home: Yes Do you feel safe in your relationship?: Yes
== END 2020-02-12 17:23 | disposition home or self-care (01) | DRG 690 ==
LOC: ER 18:28 → MS 19:13
PROVIDERS: Internal Medicine; Admitting Provider Internal Medicine; Emergency Provider Student in an Organized Health Care Education/Training Program; PCP Emergency Medicine; Visit Provider Internal Medicine
DX: N39.0 Urinary tract infection, site not specified (principal); J98.11 Atelectasis; N17.9 Acute kidney failure, unspecified; I47.1 Supraventricular tachycardia; E87.2 Acidosis; Z68.41 Body mass index [BMI] 40.0-44.9, adult; R78.81 Bacteremia; I27.20 Pulmonary hypertension, unspecified; K21.9 Gastro-esophageal reflux disease without esophagitis; G47.33 Obstructive sleep apnea (adult) (pediatric); Z11.59 Encounter for screening for other viral diseases; E86.0 Dehydration; K44.9 Diaphragmatic hernia without obstruction or gangrene; G89.29 Other chronic pain; M54.9 Dorsalgia, unspecified; R91.1 Solitary pulmonary nodule; I12.9 Hypertensive chronic kidney disease with stage 1 through stage 4 chronic kidney disease, or unspecified chronic kidney disease; Z87.442 Personal history of urinary calculi; N18.3 Chronic kidney disease, stage 3 (moderate); E83.42 Hypomagnesemia; B96.1 Klebsiella pneumoniae [K. pneumoniae] as the cause of diseases classified elsewhere; I95.9 Hypotension, unspecified; E66.9 Obesity, unspecified; Z96.653 Presence of artificial knee joint, bilateral; Z93.2 Ileostomy status
CPT/HCPCS: 36415; 51702; 71275; 76770; 80048; 80053; 80076; 83690; 84145; 87040; 87077; 93005; 96361; 96365; 96366; 99220; 99232; 99239; 99285; U0003; 71045; 71046; 74019; 81003; 81015; 83605; 83735; 83880; 84484; 85025; 85379; 87086; 87186; 93010; 93306; 99225; G0378; J0696; J1650; J3490

== ENCOUNTER 2020-03-05 11:06 | Outpatient (REF) | payer MEDICARE, BC, SELFPAY | END 2020-03-05 11:26 | LOC: LBN 11:06 | PROVIDERS: PCP Emergency Medicine; Visit Provider Nurse Practitioner Family | DX: N30.90 Cystitis, unspecified without hematuria (principal) | CPT/HCPCS: 87077; 87086; 87186 ==

== ENCOUNTER 2020-04-07 11:45 | Outpatient (REF) | payer MEDICARE, BC, SELFPAY | END 2020-04-07 12:05 | LOC: LBN 11:45 | PROVIDERS: PCP Emergency Medicine; Visit Provider Physician Assistant | DX: N76.0 Acute vaginitis (principal); B96.89 Other specified bacterial agents as the cause of diseases classified elsewhere | CPT/HCPCS: 87480; 87510; 87660 ==

== ENCOUNTER 2020-06-03 01:20 | Outpatient (CLI) | payer MEDICARE, BC, SELFPAY ==
--- NOTE | 2020-06-03 10:10 | DI.MAMMO_ITS ---
EXAM: MG MAMMO SCREENING CLINICAL HISTORY: screening TECHNIQUE: Bilateral full field digital CC and MLO mammographic images were obtained with 3D tomosyn thesis and utilizing computer aided detection (CAD). COMPARISON: Available for comparison. FINDINGS: Masses/Architectural Distortion: None seen. Microcalcifications: No suspicious pleomorphic-type are seen. Skin Thickening/Nipple Retraction: None. IMPRESSION: 1. No significant interval change with no specific features of malignancy noted. 2. Unless there is more urgent need, screening mammography is recommended, as per [employer] guidelines. BI-RADS Category 1 - Negative Breast Density - Category C - Heterogeneously dense The mammogram demonstrates the patient's breast tissue is dense. Dense breast tissue is very common a nd is not abnormal but dense breast tissue can make it harder to find cancer on a mammogram. Also, de nse breast tissue may increase their breast cancer risk. This information about the result of the [facility] mogram report was provided to the patient to raise their awareness. Use this report when you speak wi th the patient about their risks for breast cancer, which includes their family history. At that time , you may recommend for more screening tests (Ultrasound or MRI) as they might be useful based on the ir risk. A negative radiographic report should not delay biopsy if a dominant or clinically suspicious mass is present. Up to ten percent of cancers are not identified on mammography. A negative report may reinforce clinical impression. Adenosis and dense breasts may obscure an underlying neoplasm. False positive reports average 6 to 10%. Patient will receive a letter notifying them of these results.
== END 2020-06-03 01:40 ==
PROVIDERS: PCP Emergency Medicine; Visit Provider Obstetrics & Gynecology Gynecology
DX: Z12.31 Encounter for screening mammogram for malignant neoplasm of breast (principal)
CPT/HCPCS: 77063; 77067

== ENCOUNTER 2020-06-10 11:56 | Outpatient (CLI) | payer MEDICARE, BC, SELFPAY ==
--- NOTE | 2020-06-10 11:45 | DI.RAD_ITS ---
EXAM: XR KNEE LT 2V AP,LAT CLINICAL HISTORY: s/p left TKA. TECHNIQUE: 2D digital imaging was performed. COMPARISON: CR LEFT KNEE LIMITED 1 OR 2 VIEWS from 10/18/2017 FINDINGS: BONES: There are stable post operative changes present. No fracture or dislocation. JOINTS: The joint spaces are well maintained. Small joint effusion is present. SOFT TISSUE: Vascular calcifications are present. IMPRESSION: Stable postoperative changes. DATA REPOSITORY: RADIATION DOSE DELIVERED:
--- NOTE | 2020-06-10 11:45 | DI.RAD_ITS ---
EXAM: XR HIP RT COMPLETE AP PELVIS and XR hip LT 1 V CLINICAL HISTORY: hip pain. TECHNIQUE: 2D digital imaging was performed. COMPARISON: CR LEFT HIP COMPLETE POST REDUC from 03/17/2018 FINDINGS: BONES: No acute fracture is present. No bony destructive lesion is seen. JOINTS: No dislocation present. There is chondrocalcinosis in the hips. SOFT TISSUE: Normal. IMPRESSION: Mild degenerative changes of the hips. Unremarkable radiographs of the pelvis DATA REPOSITORY: RADIATION DOSE DELIVERED:
== END 2020-06-10 12:16 ==
PROVIDERS: PCP Emergency Medicine; Referring Provider Emergency Medicine; Visit Provider Student in an Organized Health Care Education/Training Program
DX: Z96.652 Presence of left artificial knee joint (principal); M16.0 Bilateral primary osteoarthritis of hip; M77.12 Lateral epicondylitis, left elbow; M54.9 Dorsalgia, unspecified; G89.29 Other chronic pain; M25.551 Pain in right hip; M25.552 Pain in left hip
CPT/HCPCS: 99214; 73501; 73502; 73560

== ENCOUNTER 2020-06-23 00:47 | Outpatient (CLI) | payer MEDICARE, BC, SELFPAY ==
--- NOTE | 2020-06-23 08:00 | DI.MRI_ITS ---
EXAM: MR LUMBAR SPINE WO CLINICAL HISTORY: BILAT LE WEAKNESS,CHRONIC LOW BACK PAIN,M54.9,G89.29. TECHNIQUE: Multiplanar multisequence MRI was performed. COMPARISON: CR XR LUMBAR SPINE COMPLETE from 07/18/2019 FINDINGS: Plain films June 2019 reveal scoliosis convex left having epicenter at L2-3 level. Position of the conus medullaris is at the T12-L1 level. There is no evidence of conus mass nor subj acent clumping of the intrathecal nerve roots to suggest arachnoiditis. Distal thecal sac ends at mi d S2 level. There are Tarlov intra sacral cyst at this level. No other significant findings within the sacral canal. With respect to the individual levels..... T12-L1: Normal disc height and signal. Mild annular bulging but without a dominant disc herniation. Central canal dimensions are normal. No significant foraminal stenosis. No facet arthropathy. L1-2: Mildly decreased disc height, more so on the right than left side. There is annular bulging bu t without a prominent disc herniation. Central canal dimensions are lower normal. Mild foraminal st enosis noted on the right side. No obvious foraminal stenosis on the left side. The difference in f oraminal stenosis is due to the more prominent height loss on the right side of this disc space when compared to the left side. L2-3: Advanced disc height loss, more so on the right than the left, this associated with Modic type 1 sub endplate marrow edema changes on the right side of the disc space. This being the epi center o f the degenerative scoliosis.. There is annular bulging and posterior bony ridging at this level, mo re so right-sided than left-sided. There is mild-moderate central spinal canal stenosis at this leve l. There is mild foraminal stenosis on the right side noted. No foraminal stenosis on the left side . Advanced degenerative changes are noted in the facet joints at this level. L3-4: Moderate-advanced disc height loss. Annular bulging which is more prominent on left side.. Th ere is moderate-severe central spinal canal stenosis at this level due to the bulging annulus, short AP dimensions of pedicles and advanced degenerative changes in the facet joints. There is mild narro wing of the exiting left neural foramen. Minimal narrowing of the exiting right neural foramen. L4-5: Moderate decreased disc height, this being more prominent on the left side where there also lat eral osteophytes. There is mild posterior annular bulging. This extends into the floor of the exiti ng left neural foramen. There is mild left-sided foraminal stenosis which is mostly related to verti cristian disc height loss and annular bulging. There is no significant foraminal stenosis on the opposite -right side. Moderate degenerative changes in the facet joints on the left side and minimal degenera tive change on the right facet joint. L5-S1: Advanced disc space narrowing. Central subligamentous disc protrusion which extends posterior ly 3 millimeters approximately 6 millimeters wide. There is significant foraminal stenosis on the le ft side at this level due to the advanced disc height loss. Only mild foraminal stenosis on the righ t side. Facet arthropathy more so on the left than right. IMPRESSION: 1. Multilevel findings as described individually above. The most prominent central canal stenosis is at L3-4 level. This is due to a annular bulging, short AP dimensions the pedicles, and advanced deg enerative changes in both facet joints. 2. Other findings as described in the visually above. 3. Scoliosis convex left, having epicenter on the right side at L2-3 level. DATA REPOSITORY:
== END 2020-06-23 01:07 ==
PROVIDERS: PCP Emergency Medicine; Visit Provider Student in an Organized Health Care Education/Training Program
DX: G89.29 Other chronic pain (principal); M54.9 Dorsalgia, unspecified; M48.061 Spinal stenosis, lumbar region without neurogenic claudication; M41.86 Other forms of scoliosis, lumbar region; M47.816 Spondylosis without myelopathy or radiculopathy, lumbar region
CPT/HCPCS: 72148

== ENCOUNTER 2020-10-24 10:18 | Emergency (ER) | payer MEDICARE, BC, SELFPAY ==
[2020-10-24 10:26] VITALS: BP 177/93; PULSE 80; RESP 16; TEMP 36.6; O2SAT 96
--- NOTE | 2020-10-24 10:38 | W.ED.GENAD ---
Discharge Plan Disposition Patient Disposition: HOME Condition: Stable Discharge Details Clinical Impression: UTI (urinary tract infection) Primary Care Provider: Jose Eaton ED Provider: Tiffany Slater Home Meds and New Rx's Prescriptions: New cefpodoxime 100 mg tablet 100 mg PO Q12H 6 Days Qty: 12 RF: 0 Continued losartan [Cozaar] 50 mg tablet 50 mg PO BID Qty: 180 RF: 3 triamcinolone acetonide 0.1 % ointment 1 applic topical .Once a week PRN (Reason: vaginal irritation) Qty: 80 RF: 4 Cytra K Crystals 1 EACH packet 1 ea PO BID RF: 0 cholecalciferol (vitamin D3) [Vitamin D3] 25 mcg (1,000 unit) capsule 1,000 unit PO DAILY Qty: 90 RF: 3 naltrexone 50 mg Tablet 50 mg PO BID RF: 0 Discharge Instructions Instructions: Cefpodoxime Proxetil (By mouth), Urinary Tract Infection in Women (ED) Additional Instructions: You have evidence to suggest recurrent urinary tract infection. Please encourage water intake. Please take the antibiotics as prescribed. You are being sent home with dosing for Cefpodoxime for tomorrow. The remainder will be your pharmacy. Even if symptoms improve, please take the entire course. If you develop back Pain, fevers, vomiting or other new/worsening symptoms please seek care urgently once again. Otherwise, please follow-up with primary care in the next 1 to 2 weeks for reevaluation. Referrals: Jose Eaton, [Primary Care Provider] - Discharge Data Discharge Date/Time-TO BE ENTERED AT DEPARTURE: 10/24/20 11:20 Medical Decision Making Patient is a pleasant 75-year-old female past medical history significant for ileostomy, GERD, BILL, paroxysmal SVT, UTI secondary to Klebsiella species, CKD. Patient comes in today with concern for recurrent UTI. Patient had the symptoms began yesterday. Is reporting that she has some pelvic discomfort. Denies any dysuria but states that she does not typically get this with her urinary tract infections. Last UTI was last summer. Patient has been hospitalized historically for bacteremia associated with her UTIs. She endorses increased frequency and urgency. Denies any fevers or chills. No CVA tenderness. On exam, patient appears nontoxic. She is hypertensive but vital signs are otherwise stable. Patient does have history of hypertension she will discuss this further and have this continue to be monitored through her PCP. She appears well-hydrated. No CVA tenderness. Abdomen is benign. She denies any vaginal discharge. UA is positive for nitrites, many bacteria. This has reflex to culture. Plan to treat patient for UTI. At this time, there is no evidence to suggest pyelonephritis. She does not appear septic. Patient I discussed antibiotic choice at length. She felt she tolerated the antibiotic she was discharged home with after her admission last summer the best. On chart review, this was Cefpodoxime. Patient's GFR has been over 30. Plan to treat patient with 100 mg of Cefpodoxime twice daily. Encourage close follow-up with primary care. Return precautions were discussed. All of her questions and concerns were addressed and she is in agreement this plan. HPI General Mode of arrival: ambulatory. Date/Time Provider Initiated Documentation: 10/24/20 10:38. Limitations to Documentation: no limitations. Information obtained by: patient and RN notes reviewed. History of Present Illness 75 year old F presents to the emergency department with the chief complaint of concern for UTI, described as moderate, with intensity rated at 7. Quality is described as other (pelvic discomfort), and is localized to the abdomen (indicates low, central abdomen over bladder). Patient started experiencing this day(s) (1) and it has been constant. No relieving factors improve symptom(s), No exacerbating factors reported . Patient notes denies chest pain, cough, fever/chills, loss of appetite, nausea/vomiting and rash. Patient did receive the following treatments prior to arrival, none Related Data Home Medications Medication Instructions Recorded Confirmed Cytra K Crystals 1 ea PO BID packet 05/22/17 10/24/20 cholecalciferol (vitamin D3) 25 1,000 unit PO DAILY #90 tab-cap 10/08/19 10/24/20 mcg (1,000 unit) capsule losartan 50 mg tablet 50 mg PO BID #180 tab-cap 01/21/20 10/24/20 triamcinolone acetonide 0.1 % 1 applic TOPICAL .Once a week PRN 03/05/20 10/24/20 topical ointment #80 gm cefpodoxime 100 mg PO Q12H 6 Days #12 tab 10/24/20 naltrexone 50 mg PO BID 10/24/20 10/24/20 Previous Rx's Medication Instructions Recorded cholecalciferol (vitamin D3) 25 1,000 unit PO DAILY #90 tab-cap 10/08/19 mcg (1,000 unit) capsule losartan 50 mg tablet 50 mg PO BID #180 tab-cap 01/21/20 triamcinolone acetonide 0.1 % 1 applic TOPICAL .Once a week PRN 03/05/20 topical ointment #80 gm cefpodoxime 100 mg PO Q12H 6 Days #12 tab 10/24/20 Allergies Allergy/AdvReac Type Severity Reaction Status Date / Time adhesive Allergy Unknown Verified 10/24/20 10:28 Penicillins Allergy Unknown Verified 10/24/20 10:28 Sulfa (Sulfonamide Allergy Unknown Verified 10/24/20 10:28 Antibiotics) felodipine AdvReac daily Verified 10/24/20 10:28 h/a's and upset stomach General Stated Complaint: Urinary SARAHY: 3 Review of Systems Constitutional Constitutional: Reports as per HPI, Denies chills, Denies fever(s) and Denies poor appetite Cardiovascular Cardiovascular: Denies chest pain Respiratory Respiratory: Denies cough Gastrointestinal Gastrointestinal: Denies abdominal pain, Denies change in bowel habits, Denies nausea and Denies vomiting Genitourinary Genitourinary: Reports as per HPI Musculoskeletal Musculoskeletal: Reports as per HPI and Denies back pain Integumentary/Breasts Skin/Breast: Reports as per HPI and Denies rash [facility] Medical History (Updated 10/24/20 @ 11:00 by GERMAIN Cope) Annual physical exam Arm pain CKD (chronic kidney disease), stage III CPAP (continuous positive airway pressure) dependence Encounter for gynecologic examination for high-risk patient covered by Medicare hx of lichens sclerosus. HTN (hypertension) Hypertensive emergency Ileostomy in place Kidney stone (06/21/03) STENT PLACED Left knee pain Left lateral epicondylitis Lichen sclerosus Rx with topical steroid cream Obesity Peripheral edema Pulmonary nodule Ulcerative colitis colectomy Surgical History History of ileostomy History of total colectomy History of total left knee replacement (TKR) TKA: 1994, tibial revision 2004. History of total right knee replacement (TKR) TKA: 1996, complete revision 2009. Hysterectomy, Laproscopic (~1980) Ileostomy (~1974) Replacement of total knee joint left-1995 WITH REVISION 2004; right-1996 with revision 2009 Status post laparoscopic hysterectomy Status post vein stripping Stent placement left sided ureteral stent 2003 Total colectomy (~1975) Vein stripping 2002 Social History Smoking/Tobacco Use Status: Never Smoking risk assessment performed?: Yes Alcohol Intake: never Drug use: Never Substance use type: does not use Household members: spouse current occupation: Retired - [employer] 33yrs. Do you feel safe at home: Yes Do you feel safe in your relationship?: Yes Exam Const General: cooperative, healthy appearing, comfortable, no acute distress, well developed and well groomed Nutritional Appearance: well nourished and overweight Orientation: alert and awake Resp Effort & Inspection: normal respiratory effort and no respiratory distress Auscultation: clear to auscultation bilaterally, no rales, no rhonchi and no wheezes Cardio Rate: regular rate Rhythm: regular rhythm Heart Sounds: S1 normal and S2 normal GI Inspection: normal to inspection Palpation: soft, no hepatosplenomegaly, not firm, no guarding, not rigid and nontender Back/Spine/Pelvis Back: no CVA tenderness Skin General skin exam: no rashes or lesions noted Trauma: no lacerations or abrasions Neuro General: patient alert and patient awake Cognition: normal cognition Speech: speech normal Gait: normal gait Psych Appearance: grossly normal and well kempt Mental Status: mental status grossly normal Speech and Movement: speech and movement normal Course Vital Signs Vital signs: Vital Signs Temperature 36.6 C 10/24/20 10:26 Pulse 80 10/24/20 10:26 Respiratory Rate 16 10/24/20 10:26 Blood Pressure 177/93 H 10/24/20 10:26 Pulse Oximetry 96 10/24/20 10:26 Temperature 36.6 C 10/24/20 10:26 Temperature Source Oral 10/24/20 10:26 Pulse 80 10/24/20 10:26 Respiratory Rate 16 10/24/20 10:26 Respiratory Effort 10/24/20 10:28 Blood Pressure 177/93 H 10/24/20 10:26 Blood Pressure Position Sitting 10/24/20 10:26 Pulse Oximetry 96 10/24/20 10:26 Oxygen Delivery Method Room Air 10/24/20 10:26 Oxygen Flow Rate 0 10/24/20 10:26 Pain Level 7 10/24/20 10:31
[2020-10-24 10:54] LABS: Bilirubin Negative (Negative); Blood Negative (Negative); Clarity Sl Cloudy (Clear); Glucose Negative (Negative); Ketones Negative (Negative); Leukocyte Esterase Small (Negative); Nitrite Positive (Negative); Specific Gravity 1.025 (1.005-1.025); Urobilinogen 0.2 EU/dL (Up TO 0.2); pH 5.5 (5-8)
[2020-10-24 11:00] LABS: Bacteria Many HPF (Negative); Crystals Negative HPF (Negative); Epithelial Cells Few HPF (Negative); Mucus Negative (Negative); Other Cells Negative (Negative); RBC 0-2 HPF (0-2)
[2020-10-24 11:01] LABS: C & S Indicated? Yes; Casts Negative LPF (Negative)
[2020-10-24] MEDS: Cefpodoxime 200 MG TAB 400 MG PO (11:16)
== END 2020-10-24 11:20 | disposition home or self-care (01) ==
PROVIDERS: Emergency Provider Physician Assistant; PCP Emergency Medicine
DX: N39.0 Urinary tract infection, site not specified (principal); B96.89 Other specified bacterial agents as the cause of diseases classified elsewhere; Z87.440 Personal history of urinary (tract) infections
CPT/HCPCS: 99283; 81003; 81015; 87086

== ENCOUNTER 2021-01-23 14:13 | Emergency (ER) | payer MEDICARE, BC, SELFPAY ==
[2021-01-23] VITALS (31 sets, daily range): BP systolic 129–177; BP diastolic 64–85; PULSE 61–76; RESP 12–24; TEMP 36.7; O2SAT 95–100
--- NOTE | 2021-01-23 15:01 | ED.GENADUL_ITS ---
Discharge Plan Disposition Patient Disposition: HOME Condition: Improving Discharge Details Clinical Impression: Posterolateral cervical muscle strain Primary Care Provider: Jose Eaton ED Provider: Isrrael Zapien Home Meds and New Rx's Prescriptions: New prednisone 20 mg tablet 20 mg PO DAILY 4 Days Qty: 4 RF: 0 hydromorphone [Dilaudid] 2 mg tablet 2 mg PO Q6H PRNQty: 5 RF: 0 Continued estradiol 0.01 % (0.1 mg/gram) cream 1 g vaginal DAILY Qty: 42.5 RF: 0 gabapentin 100 mg capsule 100 mg PO BID Qty: 60 RF: 6 losartan [Cozaar] 50 mg tablet 50 mg PO BID Qty: 180 RF: 3 halobetasol propionate 0.05 % cream 1 applic topical DAILY 42 Days Qty: 15 RF: 1 lidocaine 5 % adhesive patch,medicated 1 patch topical DAILY Qty: 15 RF: 1 Cytra K Crystals 1 EACH packet 1 ea PO BID RF: 0 cholecalciferol (vitamin D3) [Vitamin D3] 25 mcg (1,000 unit) capsule 1,000 unit PO DAILY Qty: 90 RF: 3 naltrexone 50 mg Tablet 50 mg PO BID RF: 0 Discharge Instructions Instructions: Cervical Strain (ED) Additional Instructions: Home to rest today. Small, frequent sips of fluids to maintain hydration. May use provided hydrocodone if needed for severe pain. Hold your naltrexone while taking this medication. Take prednisone as prescribed. Return to the emergency department for any acute concerns. Medical Decision Making 75-year-old female presents from home with her . She has had longstanding neck and back discomfort chronically. Now reports escalation of neck pain, tightness and spasm causing a posterior headache today. She has not fallen or injured herself. She has not been recently ill. She arrives to the ER slightly hypertensive, interactive. Her exam reveals muscular tenderness of the cervical musculature. Differential diagnosis includes tension headache, acute exacerbation of chronic pain, migraine type cephalgia. IV access established, patient given parenteral fluids, analgesic, steroid, magnesium, and 2.5 mg of Valium. She is observed. CBC and chemistry reassuring with known chronic renal insufficiency. Patient required additional administrations of medication including 1 mg of Dilaudid. After all medications were administered the patient began to feel some relief and requested discharge to home. I do feel this is an acute exacerbation of chronic pain. She has follow-up with a pain clinic in 2 weeks time. I will have her trial Dilaudid to try and manage the pain overnight. She will hold naltrexone while taking this. She was consented as to the risks and benefits of opiate use prior to discharge. HPI General Mode of arrival: ambulatory . Date/Time Provider Initiated Documentation: 01/23/21 14:16 . Limitations to Documentation: no limitations . Information obtained by: patient and family . History of Present Illness 75 year old F presents to the emergency department with the chief complaint of Acute exacerbation of chronic pain, described as moderate, severe and similar to prior episodes, Quality is described as constant, and is localized to the head and neck. Patient reports no radiation. Patient started experiencing this hour(s) and it has been constant. No relieving factors improve symptom(s), No exacerbating factors reported . Patient notes no other symptoms.. Patient did receive the following treatments prior to arrival, none Related Data Home Medications Medication Instructions Recorded Confirmed Cytra K Crystals 1 ea PO BID packet 05/22/17 01/23/21 losartan 50 mg tablet 50 mg PO BID #180 tab-cap 01/21/20 01/23/21 naltrexone 50 mg PO BID 10/24/20 01/23/21 halobetasol propionate 0.05 % 1 applic TOPICAL DAILY 42 Days #15 11/23/20 01/23/21 topical cream g estradiol 1 g VAGINAL DAILY #42.5 g 12/21/20 01/23/21 cholecalciferol (vitamin D3) 25 1,000 unit PO DAILY #90 tab-cap 01/04/21 01/23/21 mcg (1,000 unit) capsule lidocaine 5 % topical patch 1 patch TOPICAL DAILY #15 ea 01/05/21 01/23/21 gabapentin 100 mg capsule 100 mg PO BID #60 cap 01/11/21 01/23/21 hydromorphone [Dilaudid] 2 mg PO Q6H PRN #5 tab 01/23/21 prednisone 20 mg PO DAILY 4 Days #4 tab 01/23/21 Previous Rx's Medication Instructions Recorded losartan 50 mg tablet 50 mg PO BID #180 tab-cap 01/21/20 halobetasol propionate 0.05 % 1 applic TOPICAL DAILY 42 Days #15 11/23/20 topical cream g estradiol 1 g VAGINAL DAILY #42.5 g 06/01/21 cholecalciferol (vitamin D3) 25 1,000 unit PO DAILY #90 tab-cap 01/04/21 mcg (1,000 unit) capsule lidocaine 5 % topical patch 1 patch TOPICAL DAILY #15 ea 01/05/21 gabapentin 100 mg capsule 100 mg PO BID #60 cap 01/11/21 hydromorphone [Dilaudid] 2 mg PO Q6H PRN #5 tab 01/23/21 prednisone 20 mg PO DAILY 4 Days #4 tab 01/23/21 Allergies Allergy/AdvReac Type Severity Reaction Status Date / Time adhesive Allergy Unknown Verified 01/23/21 14:31 Penicillins Allergy Unknown Verified 01/23/21 14:31 Sulfa (Sulfonamide Allergy Unknown Verified 01/23/21 14:31 Antibiotics) felodipine AdvReac daily Verified 01/23/21 14:31 h/a's and upset stomach General Stated Complaint: Nk/Back Pain SARAHY: 3 Review of Systems Narrative: No fall or injury, no rash, no fever or recent illness. 6 systems reviewed and otherwise negative [facility] Medical History Annual physical exam Arm pain CKD (chronic kidney disease), stage III CPAP (continuous positive airway pressure) dependence Encounter for gynecologic examination for high-risk patient covered by Medicare hx of lichens sclerosus. HTN (hypertension) Hypertensive emergency Ileostomy in place Kidney stone (06/21/03) STENT PLACED Left knee pain Left lateral epicondylitis Lichen sclerosus Rx with topical steroid cream Neck pain Obesity Peripheral edema Pulmonary nodule Ulcerative colitis colectomy Vulvitis Surgical History History of ileostomy History of total colectomy History of total left knee replacement (TKR) TKA: 1994, tibial revision 2004. History of total right knee replacement (TKR) TKA: 1996, complete revision 2009. Hysterectomy, Laproscopic (~1980) Ileostomy (~1974) Replacement of total knee joint left-1995 WITH REVISION 2004; right-1996 with revision 2009 Status post laparoscopic hysterectomy Status post vein stripping Stent placement left sided ureteral stent 2003 Total colectomy (~1974) Vein stripping 2002 Social History Smoking/Tobacco Use Status: Never Smoking risk assessment performed?: Yes Alcohol Intake: never Drug use: Never Substance use type: does not use Household members: spouse current occupation: Retired - [employer] 33yrs. Do you feel safe at home: Yes Do you feel safe in your relationship?: Yes Exam Narrative Exam Narrative: GEN: awake, alert, oriented 3. Pleasant, well groomed, interactive. HEAD: Normocephalic, atraumatic EYES: PERRL, EOMI NECK: Bilateral paraspinous cervical musculature is tender to palpation, mild spasm present CHEST/RESP: Nontender, clear to auscultation bilateral, no wheeze/rhonchi/rales CARDIOVASCULAR: RRR, no murmur, rub selene. 2+ Rad pulse bilateral ABDOMEN: Soft, nontender, no mass. +Bowel sounds EXT: Full ROM, no edema, no rash, normal motor upper and lower extremities. Neuro: Grossly normal neurologic exam, conversant, interactive. Psych: Speech fluent, thoughts congruent, affect normal Course Vital Signs Vital signs: Vital Signs Temperature 36.7 C 01/23/21 14:27 Pulse 68 01/23/21 14:27 Blood Pressure 177/85 H 01/23/21 14:27 Pulse Oximetry 97 01/23/21 14:27 Temperature 36.7 C 01/23/21 14:27 Temperature Source Temporal Artery Scan 01/23/21 14:27 Pulse 68 01/23/21 14:27 Respiratory Effort Non-Labored 01/23/21 14:30 Blood Pressure 177/85 H 01/23/21 14:27 Blood Pressure Position Sitting 01/23/21 14:27 Pulse Oximetry 97 01/23/21 14:27 Oxygen Delivery Method Room Air 01/23/21 14:27 Oxygen Flow Rate 0 01/23/21 14:27 Pain Level 10 01/23/21 14:27
[2021-01-23 15:21] LABS: HCT 44.8 % (36.0-46.0); HGB 14.6 g/dL (11.2-15.7); MCH 30.4 pg (27.0-33.0); MCHC 32.6 % (32.0-36.0); MCV 93.1 fL (80-95); MPV 8.9 fL (8.0-11.0); Platelet Count 142 10^3/uL (130-400); RBC 4.81 10^6/uL (3.93-5.22); RDW 13.2 % (11.7-14.6); RDW-SD 45.1 fL; WBC 5.38 10^3/uL (4.4-10.8)
[2021-01-23 15:29] LABS: Anion Gap 8.9 mmol/L (3-11); BUN 25 mg/dL (7-18); CO2 25.1 mmol/L (21.0-32.0); CREATININE 1.2 mg/dL (0.55-1.02); Calcium 8.7 mg/dL (8.5-10.1); Chloride 108 mmol/L (98-107); Estimated GFR 43.91 (mL/min/1.73m2); Glucose 100 mg/dL (74-106); Potassium 4.2 mmol/L (3.5-5.1); Sodium 142 mmol/L (136-145)
[2021-01-23] MEDS: methylPREDNISolone SUCC 125 MG VIAL IVP (15:32)
[2021-01-23] MEDS: Ketorolac 15 MG/ML VIAL IVP (15:32)
[2021-01-23] MEDS: diazePAM 10 MG/2 ML SYR 2.5 MG IVP ×2 (15:33→16:06)
[2021-01-23] MEDS: MAGNESIUM SULFATE 1 GM/100 ML BAG IVPB (15:34)
[2021-01-23] MEDS: Normal Saline 1,000 ML 1000 ML IV (16:05)
[2021-01-23] MEDS: HYDROmorphone 2 MG/ML VIAL 1 MG IVP (17:39)
[2021-01-23] MEDS: HYDROmorphone 2 MG TAB PO ×2 (18:41→18:42)
== END 2021-01-23 18:40 | disposition home or self-care (01) ==
PROVIDERS: Emergency Provider Emergency Medicine; PCP Emergency Medicine
DX: S16.1XXA Strain of muscle, fascia and tendon at neck level, initial encounter (principal); X50.9XXA Other and unspecified overexertion or strenuous movements or postures, initial encounter; R51.9 Headache, unspecified; M54.2 Cervicalgia; G89.29 Other chronic pain
CPT/HCPCS: 36415; 80048; 85027; 96361; 96365; 96375; 96376; 99284; J1885; J2930; J3360; J3475

== ENCOUNTER 2021-01-27 13:29 | Outpatient (CLI) | payer MEDICARE, BC, SELFPAY ==
--- NOTE | 2021-01-27 11:30 | DI.RAD_ITS ---
Exam(s) XR CERVICAL SPINE COMP 4-5V EXAM: XR CERVICAL SPINE COMP 4-5V CLINICAL HISTORY: neck pain. TECHNIQUE: 2D digital imaging was performed. COMPARISON: CR XR cervical spine comp 4-5V from 03/21/2019 FINDINGS: BONES: No fracture or destructive lesion. Vertebral bodies are unremarkable. Facet degenerative kellie nges are seen. There is no significant neural foraminal encroachment. DISKS: Intervertebral disc spaces are maintained. Minimal uncovertebral joint spurring. ALIGNMENT: Cervical spinal alignment is within normal limits. The odontoid and atlantoaxial articulat ions are normal. SOFT TISSUE: Normal. The lung apices are clear. IMPRESSION: Mild degenerative changes. No visible neural foraminal encroachment. DATA REPOSITORY: RADIATION DOSE DELIVERED:
== END 2021-01-27 13:30 | disposition home or self-care (01) ==
LOC: DIORS 13:29
PROVIDERS: PCP Emergency Medicine; Referring Provider Emergency Medicine; Visit Provider Student in an Organized Health Care Education/Training Program
DX: M54.2 Cervicalgia (principal); M48.061 Spinal stenosis, lumbar region without neurogenic claudication
CPT/HCPCS: 99213; 72050

== ENCOUNTER 2021-03-02 16:46 | Outpatient (REF) | payer MEDICARE, BC, SELFPAY ==
[2021-03-02 17:58] LABS: Bilirubin Negative (Negative); Blood Negative (Negative); Clarity Clear (Clear); Glucose Negative (Negative); Ketones Negative (Negative); Leukocyte Esterase Negative (Negative); Nitrite Negative (Negative); Specific Gravity 1.015 (1.005-1.025); Urobilinogen 0.2 EU/dL (Up TO 0.2)
== END 2021-03-02 16:47 | disposition home or self-care (01) ==
LOC: LBN 16:46
PROVIDERS: PCP Emergency Medicine; Visit Provider Nurse Practitioner Family
DX: R35.0 Frequency of micturition (principal); R39.89 Other symptoms and signs involving the genitourinary system
CPT/HCPCS: 81003

== ENCOUNTER 2021-03-29 13:55 | Outpatient (REF) | payer MEDICARE, BC, SELFPAY | END 2021-03-29 13:56 | disposition home or self-care (01) | LOC: LBN 13:55 | PROVIDERS: PCP Emergency Medicine | DX: N39.0 Urinary tract infection, site not specified (principal) | CPT/HCPCS: 87077; 87086; 87186 ==

== ENCOUNTER 2021-06-06 02:21 | Outpatient (CLI) | payer MEDICARE, BC, SELFPAY ==
--- NOTE | 2021-06-06 07:00 | DI.MAMMO_ITS ---
Exam(s) MAMMO SCREENING EXAM: MAMMO SCREENING CLINICAL HISTORY: screening,z12.39. TECHNIQUE: Bilateral full field digital CC and MLO mammographic images were obtained with 3D tomosyn thesis and utilizing computer aided detection (CAD). COMPARISON: Prior mammograms dating back to 2011, the most recent being May 2020. FINDINGS: There has been no significant change in the appearance and distribution of the fibroglandular tissue. There are no new spiculated masses nor malignant appearing microcalcification groups. Benign-appearing microcalcifications in both breasts are again noted There is no significant architectural distortion nor skin thickening-retraction. IMPRESSION: No radiographic evidence of malignancy. BI-RADS Category 2 - Benign Findings Breast Density - Category B - Scattered areas of fibroglandular density Breast density Category C or D implies that the patient has dense breast tissue. Dense breast tissue can make it harder to find cancer on a mammogram. Dense breast tissue is also associated with an incr eased risk of breast cancer. This information about the result of the mammogram report was provided to the patient to raise their awareness. Use this report when you speak with the patient about their risks for breast cancer, which includes their family history. At that time, you may recommend additional screening tests (Ultrasoun d or MRI) as these tests may add significant information. A negative radiographic report should not delay biopsy if a dominant or clinically suspicious mass is present. Up to ten percent of cancers are not identified on mammography. A negative report may reinforce clinical impression. Adenosis and dense breasts may obscure an underlying neoplasm. False positive reports average 6 to 10%. Patient will receive a letter notifying them of these results.
== END 2021-06-06 02:41 ==
PROVIDERS: PCP Emergency Medicine; Visit Provider Obstetrics & Gynecology Gynecology
DX: Z12.31 Encounter for screening mammogram for malignant neoplasm of breast (principal)
CPT/HCPCS: 77063; 77067

== ENCOUNTER 2021-06-24 01:03 | Outpatient (CLI) | payer MEDICARE, BC, SELFPAY ==
--- NOTE | 2021-06-24 07:15 | DI.MRI_ITS ---
Exam(s) MR CERVICAL SPINE WO EXAM: MR CERVICAL SPINE WO CLINICAL HISTORY: Severe intractable neck pain, PT FAILURE, M54.2 TECHNIQUE: Multiplanar multisequence MRI of the cervical spine was performed without intravenous con trast. COMPARISON: MR MRI - CERVICAL SPINE WO CONT from 08/07/2008 MR MRI - CERVICAL SPINE WO CONT from 08/07/2008 FINDINGS: BONES: Vertebral body heights are maintained. Intervertebral disc spaces are normal. Alignment is nor mal. Bone marrow signal intensity is within normal limits. CERVICAL CORD: Craniovertebral junction is unremarkable. The cervical cord is normal size and signal intensity. SOFT TISSUES: Unremarkable. C2-3: No disc herniation or bulge is identified. No significant central spinal canal or neural forami nal stenosis. C3-4: No disc herniation or bulge is identified. No significant central spinal canal or neural forami nal stenosis C4-5: Mild prominence of the osteophyte disc complex. No focal disc herniation. No significant cent ral spinal canal or neural foraminal stenosis C5-6: Mild prominence of the osteophyte disc complex. No focal disc herniation. No significant cent ral spinal canal or neural foraminal stenosis C6-7: Mild prominence of the osteophyte disc complex. No focal disc herniation. No significant cent ral spinal canal or neural foraminal stenosis C7-T1: No disc herniation or bulge is identified. No significant central spinal canal or neural arlin inal stenosis IMPRESSION: No focal disc herniation, central spinal canal or neural foraminal stenosis in the cervical spine. DATA REPOSITORY:
== END 2021-06-24 01:23 ==
PROVIDERS: PCP Emergency Medicine; Visit Provider Emergency Medicine
DX: M54.2 Cervicalgia (principal)
CPT/HCPCS: 72141

== ENCOUNTER 2021-12-02 03:37 | Outpatient (CLI) | payer MEDICARE, BC, SELFPAY ==
[2021-12-02 10:16] LABS: CREATININE 1.5 mg/dL (0.55-1.02); Estimated GFR 33.85 (mL/min/1.73m2)
== END 2021-12-02 03:38 | disposition home or self-care (01) ==
LOC: LBO 03:38
PROVIDERS: PCP Family Medicine; Visit Provider Family Medicine
DX: I10 Essential (primary) hypertension (principal)
CPT/HCPCS: 36415; 82565

== ENCOUNTER 2022-03-01 18:29 | Outpatient (REF) | payer MEDICARE, BC, SELFPAY | END 2022-03-01 18:30 | disposition home or self-care (01) | LOC: LBN 18:29 | PROVIDERS: PCP Family Medicine; Visit Provider Obstetrics & Gynecology | DX: N89.8 Other specified noninflammatory disorders of vagina (principal) | CPT/HCPCS: 87480; 87510; 87660 ==

== ENCOUNTER 2022-05-05 20:59 | Outpatient (REF) | payer MEDICARE, BC, SELFPAY | END 2022-05-05 21:00 | disposition home or self-care (01) | LOC: LBN 20:59 | PROVIDERS: PCP Family Medicine; Visit Provider Family Medicine | DX: L90.0 Lichen sclerosus et atrophicus (principal) | CPT/HCPCS: 87480; 87510; 87660 ==

== ENCOUNTER 2022-05-11 03:59 | Outpatient (CLI) | payer MEDICARE, BC, SELFPAY ==
[2022-05-11 13:43] LABS: Anion Gap 9.4 mmol/L (3-11); BUN 32 mg/dL (7-18); CO2 25.6 mmol/L (21.0-32.0); CREATININE 1.4 mg/dL (0.55-1.02); Chloride 106 mmol/L (98-107); Estimated GFR 39.23 (mL/min/1.73m2); Glucose 102 mg/dL (74-106); Potassium 4.5 mmol/L (3.5-5.1); Sodium 141 mmol/L (136-145)
== END 2022-05-11 04:00 | disposition home or self-care (01) ==
LOC: LBO 04:00
PROVIDERS: PCP Family Medicine; Visit Provider Family Medicine
DX: I10 Essential (primary) hypertension (principal)
CPT/HCPCS: 36415; 80048

== ENCOUNTER → 2022-06-07 02:02 | Outpatient (CLI) | payer MEDICARE, BC, SELFPAY ==
--- NOTE | 2022-06-07 09:15 | DI.MAMMO_ITS ---
Exam(s) MAMMO SCREENING EXAM: MAMMO SCREENING CLINICAL HISTORY: screening TECHNIQUE: Mammograms were interpreted according to the usual protocol including computer analysis w [employer] CAD system, tomosynthesis and C-view imaging. COMPARISON: 2012 through 2020 FINDINGS: The breasts are composed of scattered fibroglandular densities, Breast Density category B. No suspicious masses or suspicious microcalcifications are seen. Benign, secretory type calcificatio ns are again noted. No skin thickening or abnormal axillary lymph nodes are seen. There has been no significant change from prior exams. IMPRESSION: BI-RADS Cat 2 - Benign Findings Yearly screening mammography is recommended. Breast Density - Category B, scattered fibroglandular densities. A negative radiographic report should not delay biopsy if a dominant or clinically suspicious mass is present. Up to ten percent of cancers are not identified on mammography. A negative report may reinforce clinical impression. Adenosis and dense breasts may obscure an underlying neoplasm. False positive reports average 6 to 10%. Patient will receive a letter notifying them of these results.
== END ==
PROVIDERS: PCP Family Medicine; Visit Provider Obstetrics & Gynecology
DX: Z12.31 Encounter for screening mammogram for malignant neoplasm of breast (principal)
CPT/HCPCS: 77063; 77067

== ENCOUNTER → 2022-06-07 02:06 | Outpatient (CLI) | payer MEDICARE, BC, SELFPAY ==
--- NOTE | 2022-06-07 09:34 | DI.CT_ITS ---
Exam(s) CT CHEST WO EXAM: CT CHEST WO CLINICAL HISTORY: f/u lung nodule from 2020,r91.1. TECHNIQUE: Imaging protocol: Axial computed tomography images were obtained and coronal and sagittal reformatted images were created and reviewed. CONTRAST MATERIAL: Noncontrast COMPARISON: CT CT CHEST PE CTA from 02/08/2020 FINDINGS: Pulmonary parenchyma: No consolidation or measurable mass. There is a stable perifissural nodule in t he right upper lobe measuring 6 millimeters in greatest dimension. Emphysema: None. Tracheobronchial tree: Patent. Interstitial changes: None. Pleura: No effusion or pneumothorax. Heart: The heart is mildly dilated. The coronary arteries show mild to moderatecalcifications. Aorta: Thoracic aorta non-dilated. Mild atherosclerotic changes. Lymph nodes: Stable mildly enlarged right paratracheal precarinal lymph nodes. Bones: Degenerative changes are seen. No evidence of compression fracture. Upper abdomen: Unremarkable. IMPRESSION: Stable 6 millimeter perifissural nodule right lower lobe. No new abnormalities. RADIATION DOSE DELIVERED: 623.39mGy.cm Total DLP 623.39mGy.cm Total DLP DATA REPOSITORY: All CT scans at this facility are submitted to the National Radiology Data Registry (NRDR) Dose Index Registry (DIR) with the [employer] ([employer]). RADIATION OPTIMIZATION: All CT scans at this facility use at least one of these dose optimization te chniques: automated exposure control; mA and/or kV adjustment per patient size (includes targeted exa ms where dose is matched to clinical indication); or iterative reconstruction.
== END ==
PROVIDERS: PCP Family Medicine; Visit Provider Family Medicine
DX: R91.1 Solitary pulmonary nodule (principal)
CPT/HCPCS: 71250

== ENCOUNTER 2022-07-01 13:15 | Emergency (ER) | payer MEDICARE, BC, SELFPAY ==
[2022-07-01 13:19] VITALS: BP 173/74; PULSE 85; RESP 16; TEMP 36; O2SAT 99
--- NOTE | 2022-07-01 14:11 | W.ED.GENAD ---
Discharge Plan Disposition Patient Disposition: Home Condition: Stable Discharge Details Clinical Impression: Cellulitis of right ear Primary Care Provider: Alberta Lehman ED Provider: Liz Bustillos Home Meds and New Rx's Prescriptions: New doxycycline hyclate 100 mg tablet 100 mg PO BID 7 Days Qty: 14 0RF Rx Instructions: Take one tablet twice daily x 7 days Continued cyclobenzaprine 5 mg tablet 5 mg PO BID PRN (Reason: muscle spasm) Qty: 60 3RF cholecalciferol (vitamin D3) [Vitamin D3] 25 mcg (1,000 unit) capsule 1,000 unit PO DAILY Qty: 90 3RF losartan [Cozaar] 50 mg tablet 50 mg PO BID Qty: 180 0RF estradiol 0.01 % (0.1 mg/gram) cream 1 g vaginal .COMPLEX Qty: 42.5 2RF Rx Instructions: 1 g vaginally 2-3 times per week; clindamycin HCl 300 mg capsule 1 cap PO TID Discharge Instructions Instructions: Cellulitis (ED) Additional Instructions: Please take the doxycycline on top of the clindamycin that you are already taking. Please take it with yogurt or probiotic. Please continue to watch the redness. Please return to [facility] [place] or be seen by your ear nose and throat if the redness extends after 3 days of the antibiotic. Please call your ear nose throat doctor on Sunday morning. Follow up with primary care provider in 3-5 days. Return to ED sooner if any worsening or concerns. Increase oral fluids. Please take Tylenol with food every 4-6 hours as needed for pain and swelling. Referrals: [facility] [Outside] - 3 days Alberta Lehman MD [Primary Care Provider] - Discharge Data Discharge Date/Time-TO BE ENTERED AT DEPARTURE: 07/01/22 15:34 Medical Decision Making 77-year-old female presents to the ER with a chief complaint of increased erythema and swelling status post a otolaryngology surgery on Sunday. Patient had reconstruction of her tympanic membrane and was placed on clindamycin. Over the last 4 days has noticed increased swelling to the ear with extension down the lateral right lateral side of the neck. Patient is complaining of headache and discomfort to the area. She did take a gram of Tylenol this morning around 6 AM. She denies any axillary tenderness, no rash on her chest abdomen or back. Work-up ordered including CBC CMP lactate IV. Will consider giving IV antibiotics. Patient is allergic to penicillin and sulfa. She is taking clindamycin at this time. CBC within normal limits, CMP shows slightly elevated BUN/creatinine, potassium sodium within normal limits, glucose 112, lactate also within normal limits. No evidence of a systemic infection. I will add doxycycline on top of her clindamycin. I did instruct her to follow-up closely with her ear nose and throat first thing Sunday morning. We did christina the redness I did instruct them to return if any significant worsening of the erythema or any concerns. This text was generated using [employer] dictation system, please disregard any oddities of phrase or misspellings. Lab Data Lab results reviewed: Yes I reviewed the patient's lab results. Labs: Laboratory Tests Range/Units 07/01/22 07/01/22 07/01/22 14:36 14:36 14:36 WBC (4.4-10.8) 10^3/uL 7.56 RBC (3.93-5.22) 10^6/uL 4.87 Hgb (11.2-15.7) g/dL 14.2 Hct (36.0-46.0) % 44.2 MCV (80-95) fL 91 MCH (27.0-33.0) pg 29.2 MCHC (32.0-36.0) % 32.1 RDW (11.7-14.6) % 13.9 Plt Count (130-400) 10^3/uL 176 MPV (8.0-11.0) fL 8.9 Immature Gran % 0.8 Neutrophils % 60.3 Lymphocytes % 24.3 Monocytes % 8.5 Eosinophils % 5.3 Basophils % 0.8 Nucleated RBC % (0.0-0.3) % 0.0 Absolute Neutrophils (1.2-6.7) 10^3/uL 4.56 Absolute Lymphocytes (1.2-3.4) 10^3/uL 1.84 Absolute Monocytes (0.1-0.8) 10^3/uL 0.64 Absolute Eosinophils (0.0-0.7) 10^3/uL 0.40 Absolute Basophils (0.0-0.2) 10^3/uL 0.06 VBG Lactate (0.6-1.4) mmol/L 1.0 Sodium (136-145) mmol/L 137 Potassium (3.5-5.1) mmol/L 4.5 Chloride (98-107) mmol/L 102 Carbon Dioxide (21.0-32.0) mmol/L 27.2 Anion Gap (3-11) mmol/L 7.8 BUN (7-18) mg/dL 36 H Creatinine (0.55-1.02) mg/dL 1.6 H Est GFR (CKD-EPI 2020) (mL/min/1.73m2) 33.22 Glucose (74-106) mg/dL 112 H Calcium (8.5-10.1) mg/dL 9.0 Total Bilirubin (0.2-1.0) mg/dL 0.5 AST (15-37) U/L 21 ALT (14-59) U/L 21 Alkaline Phosphatase (46-116) U/L 96 Total Protein (6.4-8.2) g/dL 7.4 Albumin (3.4-5.0) g/dL 3.6 Sign Out No HPI General Mode of arrival: ambulatory. Date/Time Provider Initiated Documentation: 07/01/22 13:17. Limitations to Documentation: no limitations. Information obtained by: patient, RN notes reviewed and old records reviewed. HPI Narrative: 77-year-old female presents to the ER with a chief complaint of increased erythema and swelling status post a otolaryngology surgery on Sunday. Patient had reconstruction of her tympanic membrane and was placed on clindamycin. Over the last 4 days has noticed increased swelling to the ear with extension down the lateral right lateral side of the neck. Patient is complaining of headache and discomfort to the area. She did take a gram of Tylenol this morning around 6 AM. She denies any axillary tenderness, no rash on her chest abdomen or back. Related Data Home Medications Medication Instructions Recorded Confirmed cyclobenzaprine 5 mg tablet 5 mg PO BID PRN muscle spasm #60 01/09/22 07/01/22 tabs cholecalciferol (vitamin D3) 25 1,000 unit PO DAILY #90 tab-caps 01/25/22 07/01/22 mcg (1,000 unit) capsule (Vitamin D3) losartan 50 mg tablet (Cozaar) 50 mg PO BID #180 tab-caps 05/02/22 07/01/22 estradiol 0.01% (0.1 mg/gram) 1 g vaginal .COMPLEX #42.5 grams 06/05/22 07/01/22 vaginal cream clindamycin HCl 300 mg capsule 1 cap PO TID 07/01/22 07/01/22 doxycycline hyclate 100 mg tablet 100 mg PO BID 7 days #14 tabs 07/01/22 Previous Rx's Medication Instructions Recorded cyclobenzaprine 5 mg tablet 5 mg PO BID PRN muscle spasm #60 01/09/22 tabs cholecalciferol (vitamin D3) 25 1,000 unit PO DAILY #90 tab-caps 01/25/22 mcg (1,000 unit) capsule (Vitamin D3) losartan 50 mg tablet (Cozaar) 50 mg PO BID #180 tab-caps 05/02/22 estradiol 0.01% (0.1 mg/gram) 1 g vaginal .COMPLEX #42.5 grams 06/05/22 vaginal cream doxycycline hyclate 100 mg tablet 100 mg PO BID 7 days #14 tabs 07/01/22 Allergies Allergy/AdvReac Type Severity Reaction Status Date / Time adhesive Allergy Unknown Verified 07/01/22 13:28 Penicillins Allergy Unknown Verified 07/01/22 13:28 Sulfa (Sulfonamide Allergy Unknown Verified 07/01/22 13:28 Antibiotics) felodipine AdvReac daily Verified 07/01/22 13:28 h/a's and upset stomach General Stated Complaint: EarProblem SARAHY: 4 Review of Systems All systems reviewed & are unremarkable except as noted in HPI and below Constitutional Constitutional: Reports headache(s) ENT Ears, Nose, Mouth, and Throat: Reports as per HPI, Reports ear discharge (Has been present since the surgery), Reports otalgia (Increased swelling, erythema surrounding the ear, ) and Reports headache(s) Cardiovascular Cardiovascular: Denies chest pain Integumentary/Breasts Skin/Breast: Reports as per HPI Neurologic Neurologic: Reports headache(s) PFSH All Active Problems (Updated 07/01/22 @ 15:20 by Liz Bustillos NP) Essential hypertension (Acute 07/07/13) Obesity (Chronic) Primary osteoarthritis of both hands (Acute 06/15/15) GERD (gastroesophageal reflux disease) (Chronic) Lichen sclerosus (Acute) 2018. Rx with topical steroid cream. 12/2020. Stopped steroid cream. Began vaginal E2. Ileostomy in place (Acute) Lumbar spinal stenosis (Acute) Chronic kidney disease, stage 3 (Acute) 11/2021-Cr-1.5 Cholesteatoma (Acute) 12/2021, followed by ENT at [facility] [place]; pending surgery 06/27/2022. Left bundle branch block (LBBB) on electrocardiography (Acute) BILL (obstructive sleep apnea) (Chronic) stopped using CPAP in 2020 due to mouth burn Chronic neck pain (Acute) Cellulitis of right ear (Acute) Medical History (Updated 07/01/22 @ 15:20 by Liz Bustillos NP) History of PSVT (paroxysmal supraventricular tachycardia) (2019) normal echo Kidney stone (06/21/03) STENT PLACED Nodule of flexor tendon sheath Pulmonary nodule (~01/2020) stable in 2021; first found 2019. No further testing. Sensorineural hearing loss, bilateral (03/27/14) Ulcerative colitis colectomy Vaginal candidiasis 04/08/2020. Rx with Diflucan, Repeat Jul 2021 Surgical History (Updated 05/05/22 @ 13:14 by Alberta Lehman MD) History of ileostomy History of total colectomy History of total left knee replacement (TKR) TKA: 1994, tibial revision 2004. History of total right knee replacement (TKR) TKA: 1996, complete revision 2009. S/P colectomy Status post laparoscopic hysterectomy Status post vein stripping Social History (Updated 05/05/22 @ 13:14 by Alberta Lehman MD) Smoking/Tobacco Use Status: Never Smoking risk assessment performed?: Yes Alcohol Intake: never Drug use: Never Substance use type: does not use Household members: spouse Number of Children: 2 number of grandchildren: 4 current occupation: Retired - [employer] 33yrs. Do you feel safe at home: Yes Do you feel safe in your relationship?: Yes Female Reproductive History Menstrual Menopause type: surgical History History 2 Para 2 Hx # Term Pregnancies Multiple births Hx # Pregnancies Ectopic pregnancies AB induced Hx Number of Living Children 2 AB spontaneous Exam [facility] Head: normocephalic Head images: 1. Erythema, swelling noted to the external ear there is packing within the auditory canal which is serosanguineous soaked, this has been reported since the surgery. No obvious purulent drainage noted. Resp Effort & Inspection: normal respiratory effort, able to speak in complete sentences and no audible wheezes Auscultation: clear to auscultation bilaterally Cardio Rate: regular rate Rhythm: regular rhythm Heart Sounds: S1 normal and S2 normal Neuro General: patient alert, patient awake, patient oriented x3 and gait normal Cranial Nerves: CN's II-XI intact bilaterally and PERRL Cognition: normal cognition Speech: speech normal Course Vital Signs Vital signs: Vital Signs Temperature 36.0 C L 07/01/22 13:19 Pulse 85 07/01/22 13:19 Respiratory Rate 16 07/01/22 13:19 Blood Pressure 173/74 H 07/01/22 13:19 Pulse Oximetry 99 07/01/22 13:19 Temperature 36.0 C L 07/01/22 13:19 Temperature Source Temporal Artery Scan 07/01/22 13:19 Pulse 85 07/01/22 13:19 Respiratory Rate 16 07/01/22 13:19 Respiratory Effort Non-Labored 07/01/22 13:24 Blood Pressure 173/74 H 07/01/22 13:19 Blood Pressure Position Sitting 07/01/22 13:19 Pulse Oximetry 99 07/01/22 13:19 Oxygen Delivery Method Room Air 07/01/22 13:19 Oxygen Flow Rate 0 07/01/22 13:19 Pain Level 7 07/01/22 13:19
[2022-07-01 14:40] LABS: Abs Immature Grans 0.06 10^3/uL (0.0-0.06); Absolute Basophil Count 0.06 10^3/uL (0.0-0.2); Absolute Lymphocyte Count 1.84 10^3/uL (1.2-3.4); Absolute Monocyte Count 0.64 10^3/uL (0.1-0.8); Absolute Neutrophil Count 4.56 10^3/uL (1.2-6.7); Basophils % 0.8; Eosinophils % 5.3; HCT 44.2 % (36.0-46.0); HGB 14.2 g/dL (11.2-15.7); Immature Grans % 0.8; Lymphocytes % 24.3; MCH 29.2 pg (27.0-33.0); MCHC 32.1 % (32.0-36.0); MCV 91 fL (80-95); MPV 8.9 fL (8.0-11.0); Monocytes % 8.5; Neutrophils % 60.3; Platelet Count 176 10^3/uL (130-400); RBC 4.87 10^6/uL (3.93-5.22); RDW 13.9 % (11.7-14.6); RDW-SD 46.6 fL; WBC 7.56 10^3/uL (4.4-10.8)
[2022-07-01 14:57] LABS: ALT 21 U/L (14-59); AST 21 U/L (15-37); Albumin 3.6 g/dL (3.4-5.0); Alkaline Phosphatase 96 U/L (46-116); Anion Gap 7.8 mmol/L (3-11); BUN 36 mg/dL (7-18); Bilirubin, Total 0.5 mg/dL (0.2-1.0); CO2 27.2 mmol/L (21.0-32.0); CREATININE 1.6 mg/dL (0.55-1.02); Chloride 102 mmol/L (98-107); Estimated GFR 33.22 (mL/min/1.73m2); Glucose 112 mg/dL (74-106); Potassium 4.5 mmol/L (3.5-5.1); Sodium 137 mmol/L (136-145); Total Protein 7.4 g/dL (6.4-8.2)
[2022-07-01] MEDS: Doxycycline Hyclate 100 MG CAP PO (15:08)
[2022-07-01] MEDS: Doxycycline Hyclate 100 MG, 2 CAPS/BTL PO (15:25)
[2022-07-01] MEDS: diphenhydrAMINE 25 MG CAP PO (15:32)
== END 2022-07-01 15:34 | disposition home or self-care (01) ==
PROVIDERS: Emergency Provider Registered Nurse Emergency; PCP Family Medicine
DX: H60.11 Cellulitis of right external ear (principal); R51.9 Headache, unspecified; Z98.890 Other specified postprocedural states
CPT/HCPCS: 36415; 80053; 99283; 83605; 85025; 99284

== ENCOUNTER 2022-09-24 16:24 | Emergency (ER) | payer MEDICARE, BC, SELFPAY ==
[2022-09-24 16:29] VITALS: BP 139/72; PULSE 80; RESP 18; O2SAT 99
--- NOTE | 2022-09-24 16:37 | ED.GENADUL_ITS ---
Discharge Plan Disposition Patient Disposition: Home Condition: Stable Discharge Details Clinical Impression: Acute dehydration, Chronic back pain Primary Care Provider: Alberta Lehman ED Provider: Tiffany Slater Home Meds and New Rx's Prescriptions: Continued cyclobenzaprine 5 mg tablet 5 mg PO BID PRN (Reason: muscle spasm) Qty: 60 3RF mupirocin 2 % ointment 1 applic topical BID Qty: 22 0RF Rx Instructions: Apply behind right ear twice a day for 5 days cholecalciferol (vitamin D3) [Vitamin D3] 25 mcg (1,000 unit) capsule 1,000 unit PO DAILY Qty: 90 3RF estradiol 0.01 % (0.1 mg/gram) cream 1 g vaginal .COMPLEX Qty: 42.5 2RF Rx Instructions: 1 g vaginally 2-3 times per week; losartan [Cozaar] 50 mg tablet 50 mg PO BID Qty: 180 3RF fluconazole 150 mg tablet 150 mg PO ONCE Qty: 2 2RF Rx Instructions: Repeat in 72hrs if still symptoms No Action lidocaine [Lidoderm] 5 % adhesive patch,medicated 1 patch topical DAILY Qty: 30 0RF Rx Instructions: leave on most painful area for up to 12 hrs Discharge Instructions Instructions: Dehydration (ED) Additional Instructions: Please continue to move forward with your primary care follow-up as well as physical therapy. Please encourage hydration. Encourage range of motion and physical therapy exercises that have been given to you historically. If you develop any sensory change, weakness, change in bowel or bladder habits or other new/worsening symptoms seek care urgently once again. Call primary care tomorrow to schedule follow-up appointment Referrals: Alberta Lehman MD [Primary Care Provider] - Discharge Data Discharge Date/Time-TO BE ENTERED AT DEPARTURE: 09/24/22 18:37 Medical Decision Making Patient is a pleasant 77-year-old female presenting today with chief complaint of UTI. She reports that she has chronic back pain and that this is increased slightly over the past 3 days. States that the pain feels the same just as severity has increased. She noted that she had darker urine than typical today. This prompted her to be concern for possible UTI. She denies any increased frequency, urgency or dysuria. No vaginal discharge. Denies any change in bowel habits. Patient is chronically on anti-inflammatories for her back pain but did not take these today. Instead, took oxycodone just prior to arrival but not taken any analgesics up to that point. Patient has had UTIs in the past, typically sensitive to antibiotics. Patient is currently on levofloxacin for postsurgical prophylaxis after having ear surgery. She denies fevers/chills, abdominal pain, CP, SOB. On exam, patient appears nontoxic. Lungs are clear, normal cardiac exam. She has no CVA tenderness. Her pain is across the lower back inferior to this area, left side greater than right. She does have some tight muscles in this area. She does have good range of motion but with the extremes of rotation and forward flexion she does have increased discomfort on the left side. Patient does appear dehydrated on exam. Patient is hydrating orally. I did encourage that she do that continue with this. We will apply Lidoderm patch and give her topical anti-inflammatory. At this point, she is not exhibiting symptoms of UTI necessarily. More concern for dehydration and exacerbation of her chronic back pain. I am worried about her chronic use of anti-inflammatories particular she does have a history of hypertension, GERD, kidney disease. However, she reports that she has been on this for quite some time and has been advised to have this assessed by her primary care provider. Urinalysis significant for an elevated specific gravity but otherwise no evidence of infection. I discussed this with the patient and her . She advised that she has chronic back pain and likely this is exacerbation. She is scheduled to begin physical therapy. He is also planning to see her primary care tomorrow. I encouraged that she try to increase her hydration and stay on top of her typical medications. I did offer referral to pain management and they declined stating that they have had this before. Would prefer to stick wit h her primary care and follow-up further with them. Return precautions were discussed. All the questions and concerns were addressed in agreement this plan. HPI General Date/Time Provider Initiated Documentation: 09/24/22 16:31 . Limitations to Documentation: no limitations . Information obtained by: patient, RN notes reviewed and old records reviewed . History of Present Illness 77 year old F presents to the emergency department with the chief complaint of dark urine, chronic back pain, described as moderate (back pain unchanged from baseline), Quality is described as aching, and is localized to the back. Patient reports no radiation. Patient started experiencing this year(s) and it has been constant. Immobilization improves symptom(s), Movement worsens symptoms . Patient notes no other symptoms. (dark urine but no dysurea, frequency/urgency). Patient did receive the following treatments prior to arrival, none Related Data Home Medications Medication Instructions Recorded Confirmed cyclobenzaprine 5 mg tablet 5 mg PO BID PRN muscle spasm #60 01/09/22 09/27/22 tabs cholecalciferol (vitamin D3) 25 1,000 unit PO DAILY #90 tab-caps 01/25/22 09/27/22 mcg (1,000 unit) capsule (Vitamin D3) estradiol 0.01% (0.1 mg/gram) 1 g vaginal .COMPLEX #42.5 grams 06/05/22 09/27/22 vaginal cream mupirocin 2 % topical ointment 1 applic topical BID #22 grams 08/14/22 09/27/22 losartan 50 mg tablet (Cozaar) 50 mg PO BID #180 tab-caps 09/06/22 09/27/22 fluconazole 150 mg tablet 150 mg PO ONCE #2 tabs 09/11/22 09/27/22 lidocaine 5 % topical patch 1 patch topical DAILY #30 ea 09/27/22 09/27/22 (Lidoderm) Previous Rx's Medication Instructions Recorded cyclobenzaprine 5 mg tablet 5 mg PO BID PRN muscle spasm #60 01/09/22 tabs cholecalciferol (vitamin D3) 25 1,000 unit PO DAILY #90 tab-caps 01/25/22 mcg (1,000 unit) capsule (Vitamin D3) estradiol 0.01% (0.1 mg/gram) 1 g vaginal .COMPLEX #42.5 grams 06/05/22 vaginal cream mupirocin 2 % topical ointment 1 applic topical BID #22 grams 08/14/22 losartan 50 mg tablet (Cozaar) 50 mg PO BID #180 tab-caps 09/06/22 fluconazole 150 mg tablet 150 mg PO ONCE #2 tabs 09/11/22 lidocaine 5 % topical patch 1 patch topical DAILY #30 ea 09/27/22 (Lidoderm) Allergies Allergy/AdvReac Type Severity Reaction Status Date / Time adhesive Allergy Unknown Verified 09/27/22 09:20 Penicillins Allergy Unknown Verified 09/27/22 09:20 Sulfa (Sulfonamide Allergy Unknown Verified 09/27/22 09:20 Antibiotics) felodipine AdvReac daily Verified 09/27/22 09:20 h/a's and upset stomach General Stated Complaint: Abd Prob SARAHY: 3 Review of Systems Constitutional Constitutional: Reports as per HPI, Denies chills, Denies fever(s) and Denies poor appetite Cardiovascular Cardiovascular: Denies chest pain Respiratory Respiratory: Denies cough Gastrointestinal Gastrointestinal: Denies abdominal pain, Denies change in bowel habits, Denies nausea and Denies vomiting Genitourinary Genitourinary: Reports as per HPI Musculoskeletal Musculoskeletal: Reports as per HPI Integumentary/Breasts Skin/Breast: Reports as per HPI and Denies rash PFSH All Active Problems (Updated 09/27/22 @ 09:29 by Alberta Lehman MD) Essential hypertension (Acute 07/07/13) Obesity (Chronic) Primary osteoarthritis of both hands (Acute 06/15/15) GERD (gastroesophageal reflux disease) (Chronic) Lichen sclerosus (Acute) 2018. Rx with topical steroid cream. 12/2020. Stopped steroid cream. Began vaginal E2. Ileostomy in place (Acute) Lumbar spinal stenosis (Acute) Chronic kidney disease, stage 3 (Acute) 11/2021-Cr-1.5 Left bundle branch block (LBBB) on electrocardiography (Acute) BILL (obstructive sleep apnea) (Chronic) stopped using CPAP in 2020 due to mouth burn Chronic neck pain (Chronic) Medical History (Updated 09/27/22 @ 09:29 by Alberta Lehman MD) Cholesteatoma 12/2021, [place] [facility] [place] pending surgery 06/27/2022. History of PSVT (paroxysmal supraventricular tachycardia) (2019) normal echo Kidney stone (06/21/03) STENT PLACED Nodule of flexor tendon sheath Pulmonary nodule (~01/2020) stable in 2021; first found 2019. No further testing. Sensorineural hearing loss, bilateral (03/27/14) Ulcerative colitis colectomy Vaginal candidiasis 04/08/2020. Rx with Diflucan, Repeat Jul 2021 Surgical History (Updated 09/27/22 @ 09:29 by Ablerta Lehman MD) History of ileostomy History of total colectomy History of total left knee replacement (TKR) TKA: 1994, tibial revision 2004. History of total right knee replacement (TKR) TKA: 1996, complete revision 2009. S/P colectomy S/P ear surgery (06/2022) for cholesteatoma Status post laparoscopic hysterectomy Status post vein stripping Social History (Updated 05/05/22 @ 13:14 by Alberta Lehman MD) Smoking/Tobacco Use Status: Never Smoking risk assessment performed?: Yes Alcohol Intake: never Drug use: Never Substance use type: does not use Household members: spouse Number of Children: 2 number of grandchildren: 4 current occupation: Retired - [employer] 33yrs. Do you feel safe at home: Yes Do you feel safe in your relationship?: Yes Female Reproductive History Menstrual Menopause type: surgical History History 2 Para 2 Hx # Term Pregnancies Multiple births Hx # Pregnancies Ectopic pregnancies AB induced Hx Number of Living Children 2 AB spontaneous Exam Const General: cooperative, healthy appearing, comfortable, no acute distress, well developed and well groomed Nutritional Appearance: average body habitus and well nourished (appears dry) Orientation: alert and awake HENMT Mouth: oral mucosae normal (appears dry) Resp Effort & Inspection: normal respiratory effort and no respiratory distress Auscultation: clear to auscultation bilaterally, no rales, no rhonchi and no wheezes Cardio Rate: regular rate Rhythm: regular rhythm Heart Sounds: S1 normal and S2 normal GI Inspection: normal to inspection Palpation: soft, no hepatosplenomegaly, not firm, no guarding, not rigid and nontender Back/Spine/Pelvis Back: no CVA tenderness Skin General skin exam: no rashes or lesions noted Trauma: no lacerations or abrasions Neuro General: patient alert and patient awake Cognition: normal cognition Speech: speech normal Gait: normal gait Psych Appearance: grossly normal and well kempt Mental Status: mental status grossly normal Speech and Movement: speech and movement normal Course Vital Signs Vital signs: Vital Signs Pulse 80 09/24/22 16:29 Respiratory Rate 18 09/24/22 16:29 Blood Pressure 139/72 09/24/22 16:29 Pulse Oximetry 99 09/24/22 16:29 Pulse 80 09/24/22 16:29 Respiratory Rate 18 09/24/22 16:29 Respiratory Effort Normal, Non-Labored 09/24/22 16:33 Blood Pressure 139/72 09/24/22 16:29 Pulse Oximetry 99 09/24/22 16:29 Oxygen Delivery Method Room Air 09/24/22 16:29 Oxygen Flow Rate 0 09/24/22 16:29
[2022-09-24] MEDS: Ibuprofen 600 MG TAB PO (17:01)
[2022-09-24] MEDS: Lidocaine 5% Patch 1 PATCH TP (17:01)
[2022-09-24 17:49] LABS: Bilirubin Negative (Negative); Blood Negative (Negative); Clarity Cloudy (Clear); Glucose Negative (Negative); Ketones Negative (Negative); Leukocyte Esterase Negative (Negative); Nitrite Negative (Negative); Specific Gravity >= 1.030 (1.005-1.025); Urobilinogen 0.2 mg/dL (Up to 0.2)
[2022-09-24 18:30] VITALS: BP 115/68; PULSE 81; RESP 16; O2SAT 97
== END 2022-09-24 18:37 | disposition home or self-care (01) ==
PROVIDERS: Emergency Provider Physician Assistant; PCP Family Medicine
DX: E86.0 Dehydration (principal); M54.59 Other low back pain; G89.29 Other chronic pain; R82.998 Other abnormal findings in urine
CPT/HCPCS: 99283; 81003

== ENCOUNTER 2022-11-10 15:33 | Outpatient (REF) | payer MEDICARE, BC, SELFPAY | END 2022-11-10 15:34 | disposition home or self-care (01) | LOC: LBN 15:33 | PROVIDERS: PCP Family Medicine; Visit Provider Advanced Practice Midwife | DX: N89.8 Other specified noninflammatory disorders of vagina (principal) | CPT/HCPCS: 87480; 87510; 87660 ==

== ENCOUNTER 2022-12-21 04:40 | Outpatient (CLI) | payer MEDICARE, BC, SELFPAY ==
[2022-12-21 14:25] LABS: Abs Immature Grans 0.03 10^3/uL (0.0-0.06); Absolute Basophil Count 0.05 10^3/uL (0.0-0.2); Absolute Eosinophil Count 0.17 10^3/uL (0.0-0.7); Absolute Lymphocyte Count 1.59 10^3/uL (1.2-3.4); Absolute Neutrophil Count 3.42 10^3/uL (1.2-6.7); Basophils % 0.9; Eosinophils % 2.9; HCT 41.2 % (36.0-46.0); HGB 13.7 g/dL (11.2-15.7); Immature Grans % 0.5; Lymphocytes % 27.1; MCH 29.5 pg (27.0-33.0); MCHC 33.3 % (32.0-36.0); MCV 89 fL (80-95); MPV 8.7 fL (8.0-11.0); Monocytes % 10.2; Neutrophils % 58.4; Platelet Count 168 10^3/uL (130-400); RBC 4.64 10^6/uL (3.93-5.22); RDW 14.7 % (11.7-14.6); RDW-SD 47.5 fL; WBC 5.86 10^3/uL (4.4-10.8)
[2022-12-21 14:52] LABS: Hemoglobin A1C 5.8 % (<5.7)
[2022-12-21 15:10] LABS: PROTEIN 42.7 mg/dL; Prot/Crea Ur Ratio 0.17
[2022-12-21 15:29] LABS: ALT 22 U/L (14-59); AST 18 U/L (15-37); Albumin 3.6 g/dL (3.4-5.0); Alkaline Phosphatase 83 U/L (46-116); Anion Gap 10.2 mmol/L (3-11); BUN 33 mg/dL (7-18); Bilirubin, Total 0.6 mg/dL (0.2-1.0); CO2 23.8 mmol/L (21.0-32.0); CREATININE 1.6 mg/dL (0.55-1.02); Calcium 9.3 mg/dL (8.5-10.1); Chloride 105 mmol/L (98-107); Estimated GFR 33.22 (mL/min/1.73m2); Glucose 103 mg/dL (74-106); PHOSPHORUS 3.9 mg/dL (2.6-4.7); Potassium 4.2 mmol/L (3.5-5.1); Sodium 139 mmol/L (136-145); Total Protein 7.3 g/dL (6.4-8.2)
[2022-12-21 15:37] LABS: Vitamin D 25 Total 36.7 ng/mL (30-100)
[2022-12-21 15:44] LABS: Calculated LDL 108 mg/dL (<100); Cholesterol 209 mg/dL (<200); HDL Cholesterol 49 mg/dL (40-60); Triglyceride 260 mg/dL (<150)
[2022-12-26 14:10] LABS: 1,25-Dihydroxyvitamin D 25 pg/mL (18-78)
[2022-12-29 09:23] LABS: Parathyroid Hormone,Intact 36 pg/mL (19-88)
== END 2022-12-21 04:41 | disposition home or self-care (01) ==
PROVIDERS: PCP Family Medicine; Visit Provider Family Medicine
DX: I10 Essential (primary) hypertension (principal); R73.01 Impaired fasting glucose; N18.32 Chronic kidney disease, stage 3b; E66.9 Obesity, unspecified
CPT/HCPCS: 36415; 80053; 80061; 82306; 82565; 82652; 83036; 83970; 84100; 84156; 85025

== ENCOUNTER 2023-02-16 18:34 | Outpatient (REF) | payer MEDICARE, BC, SELFPAY | END 2023-02-16 18:35 | disposition home or self-care (01) | LOC: LBN 18:34 | PROVIDERS: PCP Family Medicine; Visit Provider Family Medicine | DX: N39.0 Urinary tract infection, site not specified (principal) | CPT/HCPCS: 87077; 87086; 87186 ==

== ENCOUNTER 2023-02-20 10:59 | Outpatient (CLI) | payer MEDICARE, BC, SELFPAY ==
--- NOTE | 2023-02-20 14:03 | DI.RAD_ITS ---
Exam(s) XR FINGER LT MIDDLE EXAM: XR FINGER LT MIDDLE CLINICAL HISTORY: left proximal finger mass, R22.32. TECHNIQUE: 2D digital imaging was performed. Three views. COMPARISON: None. FINDINGS: BONES: No acute fracture is present. No bony destructive lesion is seen. JOINTS: No dislocation present. Since degenerative changes at the 1st carpal metacarpal joint, with prominent spurring and some adjacent bony fragmentation. Lateral subluxation. Advanced degenerative changes of the interphalangeal joints of the index and middle fingers. SOFT TISSUE: Ovoid area of soft tissue prominence seen at the ulnar aspect adjacent to the proximal p halanx of the middle finger. No associated calcifications. No adjacent bony destruction. IMPRESSION: Soft tissue prominence adjacent to the proximal phalanx of the middle finger without bony erosion. Advanced degenerative changes at the 1st carpal metacarpal joint and of the interphalangeal joints th e index and middle fingers. DATA REPOSITORY: RADIATION DOSE DELIVERED:
== END 2023-02-20 11:19 ==
PROVIDERS: PCP Family Medicine; Visit Provider Family Medicine
DX: M18.12 Unilateral primary osteoarthritis of first carpometacarpal joint, left hand (principal)
CPT/HCPCS: 73140

== ENCOUNTER 2023-03-05 16:31 | Outpatient (REF) | payer MEDICARE, BC, SELFPAY | END 2023-03-05 16:32 | disposition home or self-care (01) | LOC: LBN 16:31 | PROVIDERS: PCP Family Medicine; Visit Provider Obstetrics & Gynecology | DX: N89.8 Other specified noninflammatory disorders of vagina (principal) | CPT/HCPCS: 87480; 87510; 87660 ==

== ENCOUNTER 2023-04-09 21:07 | Outpatient (REF) | payer MEDICARE, BC, SELFPAY ==
[2023-04-09 22:20] LABS: Bilirubin Negative (Negative); Blood Small (Negative); Clarity Turbid (Clear); Glucose Negative (Negative); Ketones Negative (Negative); Leukocyte Esterase Moderate (Negative); Nitrite Positive (Negative); Specific Gravity 1.025 (1.005-1.025); Urobilinogen 0.2 mg/dL (Up to 0.2); pH 5.5 (5-8)
[2023-04-09 23:15] LABS: Bacteria Many HPF (Negative); C & S Indicated? No/Sq. Contamination; Crystals Negative HPF (Negative); Epithelial Cells Moderate HPF (Negative); Mucus Negative (Negative); WBC >50 HPF (0-5)
== END 2023-04-09 21:08 | disposition home or self-care (01) ==
LOC: LBN 21:07
PROVIDERS: PCP Family Medicine; Visit Provider Nurse Practitioner Family
DX: R30.0 Dysuria (principal); R82.998 Other abnormal findings in urine
CPT/HCPCS: 81003; 81015

== ENCOUNTER → 2023-05-04 08:28 | Outpatient (BNVA) | payer MEDICARE, BC, SELFPAY | PROVIDERS: PCP Family Medicine; Referring Provider Family Medicine; Visit Provider Student in an Organized Health Care Education/Training Program | DX: R22.32 Localized swelling, mass and lump, left upper limb (principal); T84.023A Instability of internal left knee prosthesis, initial encounter | CPT/HCPCS: 99214 ==

== ENCOUNTER 2023-05-23 07:53 | Day surgery (SDC) | payer MEDICARE, BC, SELFPAY ==
--- NOTE | 2023-05-23 07:27 | PDOC.DSDIS_ITS ---
Date of service: 05/23/23 Time of Service: 07:28 Discharge Plan Disposition Patient Disposition: Home Condition: Good Discharge Details Reason For Visit: Excision mass LMF Attending Provider: Vickey Smith Primary Care Provider: Alberta Lehman Home Meds and New Rx's Prescriptions: New acetaminophen 500 mg tablet 1,000 mg PO TID Qty: 90 0RF ibuprofen 600 mg tablet 600 mg PO TID PRN (Reason: pain) Qty: 90 0RF Continued Premarin 0.625 mg/gram cream 0.625 mg vaginal DAILY Qty: 30 5RF Rx Instructions: 1 gram daily x 2 weeks then 2 x weekly losartan 50 mg tablet 50 mg PO DAILY Qty: 30 0RF cholecalciferol (vitamin D3) [Vitamin D3] 25 mcg (1,000 unit) capsule 1,000 unit PO DAILY Qty: 90 3RF No Action atorvastatin 40 mg tablet 40 mg PO QHS Qty: 90 3RF Discharge Instructions Additional Instructions: Finger Cyst Excision Discharge Instructions Activity: You should keep the hand elevated as much as possible for the first few days. You may use the other fingers as tolerated but avoid trying to do too much too soon. You may perform light activities with that hand Dressing/Cast: You may remove your dressing after two days. You may cover the incision with a Band-Aid if desired. You may get the incision wet after 2 days. Medications: - You should take Tylenol and Ibuprofen for baseline pain control. - You may apply ice over the thumb. Follow-up: 7-10 days Referrals: Vickey Smith MD [ [facility]YS[facility]] - Activity:: Activity as Tolerated Remove Dressings/Wound Care:: 48 hours Shower/Bathe:: 48 hours Diet:: As Tolerated Discharge Orders Discharge Orders: Discharge Order (Routine); Ordered 05/23/23 Ordered By: Der Weathers DS: Diagnosis Discharge Diagnosis (1) Finger mass, left: Status: Acute
[2023-05-23 08:29] VITALS: BP 150/94; PULSE 77; RESP 18; TEMP 36.2; O2SAT 100
[2023-05-23] MEDS: Sodium Bicarbonate 50 MEQ/50 ML VIAL (09:13)
[2023-05-23] MEDS: Lidocaine 1% Multi-Dose W/EPI 1/100,000 50 ML VIAL (09:13)
[2023-05-23 09:45] VITALS: BP 192/85; PULSE 74; RESP 18; TEMP 36.3; O2SAT 97
--- NOTE | 2023-05-23 10:25 | ROE_ITS ---
Date of service: 05/23/23 Time of Service: 09:05 Operative Note Operative Note DATE OF PROCEDURE: 05/23/23 PRE-OP DIAGNOSIS: Left middle finger mass. POST-OP DIAGNOSIS: other (Left middle finger ganglion cyst) PROCEDURE: Cyst excision, left middle finger, deep SURGEON: Vickey Smith CHILI POWDER MIXER: Dre Weathers ANESTHESIA TYPE: Local By Surgeon Refer to Anesthesia Record ESTIMATED BLOOD LOSS: 10 PATHOLOGY: none sent TOURNIQUET TIME: 0 COMPLICATIONS: None Patient was transported to: same day Patient's condition: stable Indications: I have seen Andreina in clinic for a mass about the ulnar aspect of the base of the left middle finger. The was it getting larger/is interfering with daily activity and actually impinging upon the ring finger. Given the persistence of his size and his interference with hand function, I offered cyst excision. I reviewed the risks of the procedure to include, but not limited to, bleeding, infection, pain, stiffness, damage to nerves or vessels, recurrence. Despite these risks, the patient elected to proceed. Findings: There was a ganglion cyst originating from the volar?ulnar aspect of the proximal phalanx of the left middle finger. It seemed to originate from the flexor tendon sheath. I do not see any cyst tracking deep to the PIP or MCP joint. Procedure Description: Andreina was greeted in the preoperative holding area where the correct side was identified and marked. The consent was reviewed with the patient and signed. All questions were answered. She was taken back to the operating room. The patient was placed into the supine position with the left arm on an arm board. All bony prominences were well padded. No prophylactic antibiotics were administered since this was a clean, elective hand surgical case. The left arm was then prepped with Chloraprep and draped in a standard fashion with extremity drape. A timeout to confirm correct identity, side and site, procedure, allergies, anesthesia, and medical concerns was performed. The surgical site was marked as a longitudinal incision directly over the dorsal aspect of the mass, and the dorsal half of the ulnar aspect of the base of the left middle finger. This area proximal dorsally as well as volarly was injected for anesthesia. Once anesthesia set up the surgery was able to begin. A longitudinal incision was made through skin only, approximately 1.5cm. The deep tissues were dissected bluntly. Small crossing vessels were cauterized. The mass was readily apparent slightly more volar than expected. The cyst wall was clearly obvious and this appeared to be a normal ganglion cyst. It was quite large. It abutted the lateral band but did not go deep to it and did not cross it. With soft tissues retracted is able to expose the cyst and followed it along the proximal phalanx. The cyst was decompressed and the cyst capsule was resected. It did not seem to track to the PIP joint or the MCP joint. It appeared to go adjacent to the flexor tendon sheath. It was resected off with scissors and with a rongeur. The wound was then irrigated and the skin was closed with a 4-0 Nylon. This was dressed with gauze and a Conform dressing. The patient tolerated the procedure well and was returned to the Same Day Surgery area in a stable condition suffering no known complication.
== END 2023-05-23 10:20 | disposition home or self-care (01) ==
PROVIDERS: PCP Family Medicine; Visit Provider Student in an Organized Health Care Education/Training Program
PROC: (CPT 26160; principal; 2023-05-23 09:30)
DX: M67.442 Ganglion, left hand (principal)
CPT/HCPCS: 26160

== ENCOUNTER → 2023-06-01 08:40 | Outpatient (BNVA) | payer MEDICARE, BC, SELFPAY | PROVIDERS: PCP Family Medicine; Referring Provider Family Medicine | DX: Z47.89 Encounter for other orthopedic aftercare (principal); R22.32 Localized swelling, mass and lump, left upper limb ==

== ENCOUNTER 2023-06-18 14:55 | Outpatient (REF) | payer MEDICARE, BC, SELFPAY | END 2023-06-18 14:56 | disposition home or self-care (01) | LOC: LBN 14:55 | PROVIDERS: PCP Family Medicine; Visit Provider Nurse Practitioner Family | DX: R30.0 Dysuria (principal); R82.89 Other abnormal findings on cytological and histological examination of urine | CPT/HCPCS: 87086 ==

== ENCOUNTER 2023-07-22 09:12 | Emergency (ER) | payer MEDICARE, BC, SELFPAY ==
[2023-07-22 09:17] VITALS: BP 171/97; PULSE 102; RESP 71; TEMP 36.6; O2SAT 99
--- NOTE | 2023-07-22 09:38 | ED.GENADUL_ITS ---
Discharge Plan Disposition Patient Disposition: Home Condition: Stable Discharge Details Clinical Impression: Neck pain Primary Care Provider: Alberta Lehman ED Provider: Noah Foster Home Meds and New Rx's Prescriptions: Continued Premarin 0.625 mg/gram cream 0.625 mg vaginal DAILY Qty: 30 5RF Rx Instructions: 1 gram daily x 2 weeks then 2 x weekly losartan 50 mg tablet 50 mg PO DAILY Qty: 30 0RF atorvastatin 40 mg tablet 40 mg PO QHS Qty: 90 3RF methylprednisolone [Medrol (Eduardo)] 4 mg tablets,dose pack See Rx Instructions PO PER PKG DIR Qty: 21 0RF Rx Instructions: PO PER PKG DIR lidocaine [Lidoderm] 5 % adhesive patch,medicated 1 patch topical DAILY Qty: 30 3RF Rx Instructions: leave on most painful area for up to 12 hrs acetaminophen 500 mg tablet 1,000 mg PO TID Qty: 90 0RF ibuprofen 600 mg tablet 600 mg PO TID PRN (Reason: pain) Qty: 90 0RF naproxen sodium [Aleve] 220 mg capsule 220 mg PO ONCE Discharge Instructions Additional Instructions: Continue to use your lidocaine patches and the prednisone follow up with your primary care provider within 1 week if pain continues if you feel more ill, have severe worsening pain or new symptoms such as fevers or difficulty moving the neck return to the emergency department Medical Decision Making 78 yo0 female who has a history of chronic back pain and states the last 3-4 days has had upper back and neck pain. She started prednisone for this on Sunday and despite this still has pain so came here. She denies falling or trauma. She has no fevers, chills, neck stiffness. She is caox4 on arrival with a normal gait and appears well. She localizes the pain to the mid lower neck and upper T spine with no palpable or visible deformity. She has no bruits on carotid exam, cn ii-xii intact, no focal motor deficits and denies any paresthesias. Full rom of her neck and no meningismus. Discussed with pt likely is musculoskeletal and unlikely other entities such as crew lead infection, epidural abscess, dissection but can't be excluded without imaging and lab testing. She has decision making capacity and wants to defer having this done and I feel this is reasonable given my suspicion for serious pathology is low. she will f/u with her pcp and return precautions given, one time dose of toradol given IM. Differential Diagnosis Differential Diagnosis: musculoskeletal pain, muscle strain Medical Records Medical records reviewed: Yes I reviewed the patient's medical records. HPI General Mode of arrival: ambulatory . Date/Time Provider Initiated Documentation: 07/22/23 09:22 . Limitations to Documentation: no limitations . Information obtained by: patient . History of Present Illness 78 year old F presents to the emergency department with the chief complaint of neck pain, described as moderate, Quality is described as aching, Patient started ex periencing this day(s) (3) and it has been constant. No relieving factors improve symptom(s), No exacerbating factors reported . Patient notes denies chest pain, fever/chills and shortness of breath. Patient did receive the following treatments prior to arrival, none Related Data Home Medications Medication Instructions Recorded Confirmed conjugated estrogens 0.625 mg/gram 0.625 mg vaginal DAILY #30 grams 11/10/22 07/22/23 vaginal cream (Premarin) atorvastatin 40 mg tablet 40 mg PO QHS #90 tabs 12/27/22 07/22/23 losartan 50 mg tablet 50 mg PO DAILY #30 tabs 03/06/23 07/22/23 acetaminophen 500 mg tablet 1,000 mg (2 x 500 mg) PO TID #90 05/23/23 07/22/23 tabs ibuprofen 600 mg tablet 600 mg PO TID PRN pain #90 tabs 05/23/23 07/22/23 naproxen sodium 220 mg capsule 220 mg PO ONCE 05/23/23 07/22/23 (Aleve) lidocaine 5 % topical patch 1 patch topical DAILY #30 ea 06/29/23 07/22/23 (Lidoderm) methylprednisolone 4 mg tablets in See Rx Instructions PO PER PKG DIR 07/20/23 07/22/23 a dose pack (Medrol (Eduardo)) #21 dose pk Previous Rx's Medication Instructions Recorded conjugated estrogens 0.625 mg/gram 0.625 mg vaginal DAILY #30 grams 11/10/22 vaginal cream (Premarin) atorvastatin 40 mg tablet 40 mg PO QHS #90 tabs 12/27/22 losartan 50 mg tablet 50 mg PO DAILY #30 tabs 03/06/23 acetaminophen 500 mg tablet 1,000 mg (2 x 500 mg) PO TID #90 05/23/23 tabs ibuprofen 600 mg tablet 600 mg PO TID PRN pain #90 tabs 05/23/23 lidocaine 5 % topical patch 1 patch topical DAILY #30 ea 06/29/23 (Lidoderm) methylprednisolone 4 mg tablets in See Rx Instructions PO PER PKG DIR 07/20/23 a dose pack (Medrol (Eduardo)) #21 dose pk Allergies Allergy/AdvReac Type Severity Reaction Status Date / Time adhesive Allergy Severe Verified 07/22/23 09:21 Penicillins Allergy Severe Verified 07/22/23 09:21 Sulfa (Sulfonamide Allergy Mild Verified 07/22/23 09:21 Antibiotics) felodipine AdvReac daily Verified 07/22/23 09:21 h/a's and upset stomach General Stated Complaint: Nk/Back Pain SARAHY: 4 Review of Systems All systems reviewed & are unremarkable except as noted in HPI and below Constitutional Constitutional: Denies chills, Denies fever(s) and Denies weakness Eyes Eyes: Denies loss of vision Cardiovascular Cardiovascular: Denies chest pain and Denies dyspnea Respiratory Respiratory: Denies cough and Denies dyspnea Gastrointestinal Gastrointestinal: Denies abdominal pain, Denies nausea and Denies vomiting Musculoskeletal Musculoskeletal: Denies joint swelling Neurologic Neurologic: Denies loss of vision and Denies weakness PFSH All Active Problems (Updated 07/22/23 @ 09:42 by Noah Foster MD) Neck pain (Acute) Instability of internal left knee prosthesis (Acute) Chronic neck pain (Chronic) BILL (obstructive sleep apnea) (Chronic) stopped using CPAP in 2020 due to mouth burn Left bundle branch block (LBBB) on electrocardiography (Acute) Chronic kidney disease, stage 3 (Acute) 11/2021-Cr-1.5 Lumbar spinal stenosis (Acute) Ileostomy in place (Acute) Lichen sclerosus (Acute) 2018. Rx with topical steroid cream. 12/2020. Stopped steroid cream. Began vaginal E2. GERD (gastroesophageal reflux disease) (Chronic) Primary osteoarthritis of both hands (Acute 06/15/15) Obesity (Chronic) Essential hypertension (Acute 07/07/13) Medical History Lipoma of anterior chest wall Atrophic vulva History of PSVT (paroxysmal supraventricular tachycardia) (2019) normal echo Cholesteatoma 12/2021, followed by ENT at [facility] [place]; pending surgery 06/27/2022. Pulmonary nodule (~01/2020) stable in 2021; first found 2019. No further testing. Ulcerative colitis colectomy Sensorineural hearing loss, bilateral (03/27/14) Kidney stone (06/21/03) STENT PLACED Surgical History S/P ear surgery (06/2022) for cholesteatoma S/P colectomy History of ileostomy History of total colectomy Status post laparoscopic hysterectomy Status post vein stripping History of total left knee replacement (TKR) TKA: 1994, tibial revision 2004. History of total right knee replacement (TKR) TKA: 1996, complete revision 2009. Social History Smoking/Tobacco Use Status: Never Second Hand Exposure: No Smoking risk assessment performed?: Yes Alcohol Intake: never Drug use: Never Substance use type: does not use Caregiver/Support person: No Household members: spouse Housing: house Number of Children: 2 number of grandchildren: 4 Communication Needs: None Do you need help understanding health information?: Rarely current occupation: Retired - [employer]yrs. Pets and animals: No Sexually active: Yes Do you think of yourself as: straight/heterosexual Current gender identity: female What is your relationship status?: How often do you talk on the phone with friends or family?: twice per week How often do you get together with friends or relatives?: once per week How often do you attend sikh or holiness services?: 4 or more times per year Do you belong to any clubs or organized social groups?: no Panel score (0-1 are the most socially isolated patients): 3 What type of physical activity do you participate in: other Details: Physical Therapy Duration: 15-30 minutes/day Frequency: daily Alondra/Buddhist: Roman Catholic Special alondra needs: No Seatbelt use: always Drive intox or ride w/intox straight truck driver: No Do you feel safe at home: Yes Do you feel safe in your relationship?: Yes Additional Social history: unable assess privately Female Reproductive History Menstrual Menopause type: surgical History History 2 Para 2 Hx # Term Pregnancies Multiple births Hx # Pregnancies Ectopic pregnancies AB induced Hx Number of Living Children 2 AB spontaneous Exam Const General: no acute distress Orientation: alert [facility] Head: normal to inspection Ears: external ears normal General nose exam: external nose normal Mouth: moist mucous membranes Eyes General: appearance normal, both eyes and all related structures Neck Neck: normal visual inspection, full ROM, no lymphadenopathy, no meningeal signs, trachea midline, supple, no anterior neck swelling and no JVD Thyroid: thyroid normal Carotids: no bruits Resp Effort & Inspection: normal respiratory effort and able to speak in complete sentences Cardio Rate: regular rate Skin General skin exam: no rashes or lesions noted Neuro General: patient alert and patient oriented x3 Extrem General: normal to inspection Psych Mental Status: mental status grossly normal Course Vital Signs Vital signs: Vital Signs Temperature 36.6 C 07/22/23 09:17 Pulse 102 H 07/22/23 09:17 Respiratory Rate 71 H 07/22/23 09:17 Blood Pressure 171/97 H 07/22/23 09:17 Pulse Oximetry 99 07/22/23 09:17 Temperature 36.6 C 07/22/23 09:17 Pulse 102 H 07/22/23 09:17 Respiratory Rate 71 H 07/22/23 09:17 Respiratory Effort Normal, Non-Labored 07/22/23 09:23 Blood Pressure 171/97 H 07/22/23 09:17 Pulse Oximetry 99 07/22/23 09:17 Pain Level 8 07/22/23 09:24
[2023-07-22] MEDS: Ketorolac 15 MG/ML VIAL IM (09:46)
== END 2023-07-22 09:46 | disposition home or self-care (01) ==
PROVIDERS: Emergency Provider Emergency Medicine; PCP Family Medicine
DX: M54.2 Cervicalgia (principal); G89.29 Other chronic pain
CPT/HCPCS: 96372; 99284; J1885

== ENCOUNTER 2023-09-27 14:14 | Outpatient (CLI) | payer MEDICARE, BC, SELFPAY ==
[2023-09-27 14:11] LABS: Anion Gap 11.5 mmol/L (3-11); BUN 25 mg/dL (7-18); CO2 24.5 mmol/L (21.0-32.0); CREATININE 1.3 mg/dL (0.55-1.02); Calcium 9.2 mg/dL (8.5-10.1); Chloride 106 mmol/L (98-107); Estimated GFR 42.35 (mL/min/1.73m2); Glucose 103 mg/dL (74-106); Sodium 142 mmol/L (136-145)
== END 2023-09-27 14:15 | disposition home or self-care (01) ==
LOC: LBO 14:15
PROVIDERS: PCP Family Medicine; Visit Provider Family Medicine
DX: I10 Essential (primary) hypertension (principal); N18.32 Chronic kidney disease, stage 3b
CPT/HCPCS: 36415; 80048

== ENCOUNTER 2023-10-11 13:48 | Outpatient (REF) | payer MEDICARE, BC, SELFPAY | END 2023-10-11 13:49 | disposition home or self-care (01) | LOC: LBN 13:48 | PROVIDERS: PCP Family Medicine; Visit Provider Advanced Practice Midwife | DX: N76.0 Acute vaginitis (principal) | CPT/HCPCS: 87480; 87510; 87660 ==

== ENCOUNTER 2024-01-15 11:01 | Outpatient (CLI) | payer MEDICARE, BC, SELFPAY ==
[2024-01-15 10:43] LABS: Abs Immature Grans 0.03 10^3/uL (0.0-0.06); Absolute Basophil Count 0.04 10^3/uL (0.0-0.2); Absolute Eosinophil Count 0.22 10^3/uL (0.0-0.7); Absolute Lymphocyte Count 1.56 10^3/uL (1.2-3.4); Absolute Monocyte Count 0.35 10^3/uL (0.1-0.8); Absolute Neutrophil Count 3.44 10^3/uL (1.2-6.7); Basophils % 0.7 %; Eosinophils % 3.9 %; Immature Grans % 0.5 %; Lymphocytes % 27.7 %; MCH 29.4 pg (27.0-33.0); MCHC 32.6 % (32.0-36.0); MCV 90 fL (80-95); MPV 9.4 fL (8.0-11.0); Monocytes % 6.2 %; Platelet Count 145 10^3/uL (130-400); RBC 4.77 10^6/uL (3.93-5.22); RDW 13.7 % (11.7-14.6); RDW-SD 45.5 fL; WBC 5.64 10^3/uL (4.4-10.8)
[2024-01-15 11:44] LABS: ALT 30 U/L (14-59); AST 33 U/L (15-37); Albumin 3.4 g/dL (3.4-5.0); Alkaline Phosphatase 93 U/L (46-116); Anion Gap 7.5 mmol/L (3-11); BUN 22 mg/dL (7-18); Bilirubin, Total 0.93 mg/dL (0.2-1.0); CO2 28.5 mmol/L (21.0-32.0); CREATININE 1.3 mg/dL (0.55-1.02); Calcium 9.2 mg/dL (8.5-10.1); Chloride 107 mmol/L (98-107); Estimated GFR 42.35 (mL/min/1.73m2); Glucose 117 mg/dL (74-106); Potassium 3.9 mmol/L (3.5-5.1); Sodium 143 mmol/L (136-145); TSH (W/Ref FT4) 2.38 uIU/mL (0.36-3.74); Total Protein 6.7 g/dL (6.4-8.2)
== END 2024-01-15 11:02 | disposition home or self-care (01) ==
LOC: LBO 11:04
PROVIDERS: PCP Family Medicine; Visit Provider Family Medicine
DX: E03.9 Hypothyroidism, unspecified (principal); F32.0 Major depressive disorder, single episode, mild; Z00.00 Encounter for general adult medical examination without abnormal findings
CPT/HCPCS: 36415; 80053; 84443; 85025

== ENCOUNTER → 2024-01-21 02:38 | Outpatient (CLI) | payer MEDICARE, BC, SELFPAY ==
--- NOTE | 2024-01-21 07:15 | DI.MAMMO_ITS ---
Exam(s) MAMMO SCREENING EXAM: MAMMO SCREENING CLINICAL HISTORY: screening,z12.39. TECHNIQUE: Bilateral full field digital CC and MLO mammographic images were obtained with 3D tomosyn thesis and utilizing computer aided detection (CAD). COMPARISON: Prior mammograms were reviewed. FINDINGS: There has been no significant change in the appearance and distribution of the fibroglandular tissue. There are no new spiculated masses nor malignant appearing microcalcification groups. There is no significant architectural distortion nor skin thickening-retraction. IMPRESSION: No radiographic evidence of malignancy. BI-RADS Category 1 - Negative Breast Density - Category C - Heterogeneously dense Breast density Category C or D implies that the patient has dense breast tissue. Dense breast tissue can make it harder to find cancer on a mammogram. Dense breast tissue is also associated with an incr eased risk of breast cancer. This information about the result of the mammogram report was provided to the patient to raise their awareness. Use this report when you speak with the patient about their risks for breast cancer, which includes their family history. At that time, you may recommend additional screening tests (Ultrasoun d or MRI) as these tests may add significant information. A negative radiographic report should not delay biopsy if a dominant or clinically suspicious mass is present. Up to ten percent of cancers are not identified on mammography. A negative report may reinforce clinical impression. Adenosis and dense breasts may obscure an underlying neoplasm. False positive reports average 6 to 10%. Patient will receive a letter notifying them of these results.
== END ==
PROVIDERS: PCP Family Medicine; Visit Provider Family Medicine
DX: Z12.31 Encounter for screening mammogram for malignant neoplasm of breast (principal)
CPT/HCPCS: 77063; 77067

== ENCOUNTER → 2024-04-14 10:40 | Outpatient (BNVA) | payer MEDICARE, BC, SELFPAY | PROVIDERS: PCP Family Medicine; Referring Provider Family Medicine; Visit Provider Podiatrist | DX: B07.0 Plantar wart (principal); M79.672 Pain in left foot | CPT/HCPCS: 17110; 99213 ==

== ENCOUNTER 2024-10-04 17:00 | Outpatient (REF) | payer MEDICARE, BC, SELFPAY | END 2024-10-04 17:01 | disposition home or self-care (01) | LOC: LBN 17:00 | PROVIDERS: PCP Family Medicine; Visit Provider Physician Assistant Medical | DX: N89.8 Other specified noninflammatory disorders of vagina (principal); N90.5 Atrophy of vulva | CPT/HCPCS: 87480; 87510; 87660 ==

== ENCOUNTER 2024-10-13 17:49 | Outpatient (REF) | payer MEDICARE, BC, SELFPAY | END 2024-10-13 17:50 | disposition home or self-care (01) | LOC: LBN 17:49 | PROVIDERS: PCP Family Medicine; Visit Provider Obstetrics & Gynecology | DX: N94.9 Unspecified condition associated with female genital organs and menstrual cycle (principal); G89.29 Other chronic pain; M48.061 Spinal stenosis, lumbar region without neurogenic claudication; M54.2 Cervicalgia; M79.643 Pain in unspecified hand; N76.3 Subacute and chronic vulvitis; Z93.2 Ileostomy status | CPT/HCPCS: 87480; 87510; 87660 ==

== ENCOUNTER 2024-10-26 04:27 | Emergency (ER) | payer MEDICARE, BC, SELFPAY ==
[2024-10-26 04:35] VITALS: BP 154/95; PULSE 103; RESP 18; TEMP 36.5; O2SAT 99
--- NOTE | 2024-10-26 04:46 | W.ED.GENAD ---
Discharge Plan Disposition Patient Disposition: Home Condition: Good Discharge Details Clinical Impression: Hives Primary Care Provider: Max Carbone ED Provider: Dimas Haley [place] Meds and New Rx's Prescriptions: New hydroxyzine HCl 25 mg tablet 25 mg PO TID PRN (Reason: itching) Qty: 10 0RF Continued lidocaine 5 % cream 1 applic topical QID Qty: 30 2RF Rx Instructions: Apply to the vulva as directed every 6 hours as needed nystatin 100,000 unit/gram cream 1 applic topical BID Qty: 30 0RF Rx Instructions: Apply to the affected area twice daily acetaminophen 500 mg tablet 1,000 mg PO TID PRN (Reason: pain) lidocaine [Lidoderm] 5 % adhesive patch,medicated 1 patch topical DAILY Qty: 30 3RF Rx Instructions: leave on most painful area for up to 12 hrs donepezil 10 mg tablet 10 mg PO QHS Qty: 90 3RF losartan 50 mg tablet 50 mg PO DAILY Qty: 90 3RF atorvastatin 40 mg tablet 40 mg PO QHS Qty: 90 3RF cyclobenzaprine 5 mg tablet 5 mg PO BID PRN (Reason: muscle spasm) Qty: 30 0RF estradiol 0.01 % (0.1 mg/gram) cream 0.25 g vaginal .q2-3/week Qty: 42.5 4RF Rx Instructions: Use 2-3x/week. Apply around clitoris, labia, perineum (skin between vagina and anus) and anus. triamcinolone acetonide 0.1 % ointment 1 applic topical BID 14 Days Qty: 15 4RF ibuprofen 600 mg tablet 600 mg PO TID PRN (Reason: pain) Qty: 90 0RF Discharge Instructions Instructions: Hives Additional Instructions: You were seen for rash and itching that does appear to be hive-like/allergic in nature, potentially related to the metronidazole you just finished. Since diphenhydramine has not been helping with the itching we will try hydroxyzine instead. Contact your primary care Sunday if this medication has not helped. Return to ED for any difficulty breathing, throat swelling, GI symptoms, other concerns. Referrals: Max Carbone, H[facility] PULLER [Primary Care Provider] - HPI General Mode of arrival: ambulatory. Date/Time Provider Initiated Documentation: 10/26/24 04:45. Limitations to Documentation: no limitations. Information obtained by: patient, family and RN notes reviewed. HPI Narrative: Patient presents to ED with rash and itching. Symptoms began yesterday. She has just finished a course of metronidazole. She has also been taking cyclobenzaprine for muscle pain on and off. She is using nystatin cream and lidocaine cream for vaginal yeast infection. She otherwise denies any new medications, soaps, detergents. She denies any oropharyngeal symptoms, shortness of breath, vomiting or diarrhea. She has taken diphenhydramine but continues to have pruritus which prompted her to come to the ED. She otherwise denies fever, chills, URI symptoms, GI symptoms. Related Data Home Medications ?Medication ?Instructions ?Recorded ?Confirmed ibuprofen 600 mg tablet 600 mg PO TID PRN pain #90 tabs 05/23/23 10/26/24 estradiol 0.01% (0.1 mg/gram) 0.25 g vaginal .q2-3/week #42.5 09/28/23 10/26/24 vaginal cream grams acetaminophen 500 mg tablet 1,000 mg PO TID PRN pain 01/11/24 10/26/24 triamcinolone acetonide 0.1 % 1 applic topical BID 2 weeks #15 04/02/24 10/26/24 topical ointment grams atorvastatin 40 mg tablet 40 mg PO QHS #90 tabs 06/27/24 10/26/24 donepezil 10 mg tablet 10 mg PO QHS #90 tabs 06/27/24 10/26/24 lidocaine 5 % topical patch 1 patch topical DAILY #30 ea 06/27/24 10/26/24 (Lidoderm) losartan 50 mg tablet 50 mg PO DAILY #90 tabs 06/27/24 10/26/24 cyclobenzaprine 5 mg tablet 5 mg PO BID PRN muscle spasm #30 10/14/24 10/26/24 tabs lidocaine 5 % topical cream 1 applic topical QID #30 grams 10/24/24 10/26/24 nystatin 100,000 unit/gram topical 1 applic topical BID #30 grams 10/24/24 10/26/24 cream hydroxyzine HCl 25 mg tablet 25 mg PO TID PRN itching #10 tabs 10/26/24 Previous Rx's ?Medication ?Instructions ?Recorded ibuprofen 600 mg tablet 600 mg PO TID PRN pain #90 tabs 05/23/23 estradiol 0.01% (0.1 mg/gram) 0.25 g vaginal .q2-3/week #42.5 09/28/23 vaginal cream grams triamcinolone acetonide 0.1 % 1 applic topical BID 2 weeks #15 04/02/24 topical ointment grams atorvastatin 40 mg tablet 40 mg PO QHS #90 tabs 06/27/24 donepezil 10 mg tablet 10 mg PO QHS #90 tabs 06/27/24 lidocaine 5 % topical patch 1 patch topical DAILY #30 ea 06/27/24 (Lidoderm) losartan 50 mg tablet 50 mg PO DAILY #90 tabs 06/27/24 cyclobenzaprine 5 mg tablet 5 mg PO BID PRN muscle spasm #30 10/14/24 tabs lidocaine 5 % topical cream 1 applic topical QID #30 grams 10/24/24 nystatin 100,000 unit/gram topical 1 applic topical BID #30 grams 10/24/24 cream hydroxyzine HCl 25 mg tablet 25 mg PO TID PRN itching #10 tabs 10/26/24 Allergies Allergy/AdvReac Type Severity Reaction Status Date / Time adhesive Allergy Severe Other (See Verified 10/26/24 04:38 Comment) Penicillins Allergy Severe Other (See Verified 10/26/24 04:38 Comment) Sulfa (Sulfonamide Allergy Mild Other (See Verified 10/26/24 04:38 Antibiotics) Comment) felodipine AdvReac daily Verified 10/26/24 04:38 h/a's and upset stomach General Stated Complaint: RashLesion SARAHY: 4 Exam Narrative Exam Narrative: Const: Obese elderly female in NAD. VS per triage. HEENT: NC/AT. Normal facial exam. Neck: Supple. Trachea midline. Lungs: Normal respiratory effort. Neuro: A+O x 3. Normal speech, mentation, gait. Cranial nerves II - XII grossly intact. No gross motor or sensory deficit. Skin: Diffuse erythematous maculopapular lesions as well as hives present on the extremities and torso more prominent on the back and legs. Course Vital Signs Vital signs: Vital Signs Temperature 97.7 F 10/26/24 04:35 Pulse 103 H 10/26/24 04:35 Respiratory Rate 18 10/26/24 04:35 Blood Pressure 154/95 H 10/26/24 04:35 Pulse Oximetry 99 10/26/24 04:35 Temperature 97.7 F 10/26/24 04:35 Temperature Source Oral 10/26/24 04:35 Pulse 103 H 10/26/24 04:35 Respiratory Rate 18 10/26/24 04:35 Blood Pressure 154/95 H 10/26/24 04:35 Blood Pressure Position Sitting 10/26/24 04:35 Pulse Oximetry 99 10/26/24 04:35 Oxygen Delivery Method Room Air 10/26/24 04:35 Oxygen Flow Rate 0 10/26/24 04:35 Medical Decision Making Patient presenting with a pruritic rash that is maculopapular and hive-like in nature. Otherwise, no airway or breathing problems, GI symptoms. Possible that this related to the metronidazole which she just completed yesterday. Given the fact that she has vaginal yeast infection I will not initiate steroid use. Will switch from diphenhydramine to hydroxyzine for the day and have patient contact primary care Sunday morning for follow-up. Initial dose of hydroxyzine given here. Prescription sent to pharmacy. Return precautions provided. PFSH All Active Problems Hives (Acute) Hand pain (Acute) Yeast dermatitis (Acute) Pain in left foot (Acute) Plantar verruca (Acute) Dementia (Chronic) SLUMS 01/2024 Prurigo nodularis (Acute) Memory loss (Acute) Depression, major, single episode, mild (Acute) Chronic vulvitis (Acute) Instability of internal left knee prosthesis (Acute) Chronic neck pain (Chronic) BILL (obstructive sleep apnea) (Chronic) stopped using CPAP in 2020 due to mouth burn Left bundle branch block (LBBB) on electrocardiography (Acute) Chronic kidney disease, stage 3 (Acute) 11/2021-Cr-1.5 Lumbar spinal stenosis (Acute) Ileostomy in place (Acute) Lichen sclerosus (Acute) 2018. Rx with topical steroid cream. 12/2020. Stopped steroid cream. Began vaginal E2. GERD (gastroesophageal reflux disease) (Chronic) Primary osteoarthritis of both hands (Acute 06/15/15) Obesity (Chronic) Essential hypertension (Acute 07/07/13) Medical History Lipoma of anterior chest wall Atrophic vulva History of PSVT (paroxysmal supraventricular tachycardia) (2019) normal echo Cholesteatoma 12/2021, [place] [facility] [place]/27/[place]. Pulmonary nodule (~01/2020) stable in 2021; first found 2019. No further testing. Ulcerative colitis colectomy Sensorineural hearing loss, bilateral (03/27/14) Kidney stone (06/21/03) STENT PLACED Surgical History S/P ear surgery (06/2022) for cholesteatoma S/P colectomy History of ileostomy History of total colectomy Status post laparoscopic hysterectomy Status post vein stripping History of total left knee replacement (TKR) TKA: 1994, tibial revision 2004. History of total right knee replacement (TKR) TKA: 1996, complete revision 2009. Family History Brother , age 84 Old age Sister No problems noted. Mother Murder Father Colon cancer Daughter No problems noted. Son No problems noted. Social History Smoking/Tobacco Use Status: Never Second Hand Exposure: No Smoking risk assessment performed?: Yes Alcohol Intake: never Drug use: Never Substance use type: does not use Adopted: No Caregiver/Support person: No Household members: spouse Housing: house Number of Children: 2 number of grandchildren: 4 Communication Needs: None Education Level: college Details: 4 years+ Do you need help understanding health information?: Rarely current occupation: Retired - [employer]yrs. Pets and animals: No Sexually active: Yes Do you think of yourself as: straight/heterosexual Current gender identity: female What is your relationship status?: How often do you talk on the phone with friends or family?: once per week How often do you get together with friends or relatives?: once per week How often do you attend mosque or pentecostalism services?: 4 or more times per year Do you belong to any clubs or organized social groups?: no Panel score (0-1 are the most socially isolated patients): 2 What type of physical activity do you participate in: none Duration: decline to answer Frequency: does not exercise Alondra/Congregation: Scientologist Special alondra needs: No Seatbelt use: always Drive intox or ride w/intox 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
[2024-10-26] MEDS: hydrOXYzine HCL 25 MG TAB PO (04:57)
== END 2024-10-26 04:57 | disposition home or self-care (01) ==
PROVIDERS: Emergency Provider Emergency Medicine; PCP Nurse Practitioner Family
DX: L50.9 Urticaria, unspecified (principal); L29.9 Pruritus, unspecified; I12.9 Hypertensive chronic kidney disease with stage 1 through stage 4 chronic kidney disease, or unspecified chronic kidney disease; N18.30 Chronic kidney disease, stage 3 unspecified
CPT/HCPCS: 99283

== ENCOUNTER 2024-11-18 16:09 | Outpatient (REF) | payer MEDICARE, BC, SELFPAY ==
[2024-11-18 16:25] LABS: Abs Immature Grans 0.03 10^3/uL (0.0-0.06); Absolute Basophil Count 0.04 10^3/uL (0.0-0.2); Absolute Eosinophil Count 0.21 10^3/uL (0.0-0.7); Absolute Lymphocyte Count 1.37 10^3/uL (1.2-3.4); Absolute Neutrophil Count 3.36 10^3/uL (1.2-6.7); Basophils % 0.7 %; ESR 17 mm/hr (0-30); Eosinophils % 3.8 %; HCT 41.8 % (36.0-46.0); HGB 13.9 g/dL (11.2-15.7); Immature Grans % 0.5 %; Lymphocytes % 24.9 %; MCH 29.7 pg (27.0-33.0); MCHC 33.3 % (32.0-36.0); MCV 89 fL (80-95); Monocytes % 9.1 %; Platelet Count 169 10^3/uL (130-400); RBC 4.68 10^6/uL (3.93-5.22); RDW 14.5 % (11.7-14.6); RDW-SD 46.9 fL; WBC 5.51 10^3/uL (4.4-10.8)
[2024-11-18 16:44] LABS: ALT 34 U/L (14-59); AST 35 U/L (15-37); Albumin 3.5 g/dL (3.4-5.0); Alkaline Phosphatase 117 U/L (46-116); Anion Gap 8.9 mmol/L (3-11); BUN 24 mg/dL (7-18); Bilirubin, Total 0.7 mg/dL (0.2-1.0); CO2 28.1 mmol/L (21.0-32.0); CREATININE 1.3 mg/dL (0.55-1.02); Calcium 8.8 mg/dL (8.5-10.1); Calculated LDL 55 mg/dL (<100); Chloride 109 mmol/L (98-107); Cholesterol 132 mg/dL (<200); Estimated GFR 42.09 (mL/min/1.73m2); Glucose 121 mg/dL (74-106); HDL Cholesterol 51 mg/dL (>or=50); Potassium 4.2 mmol/L (3.5-5.1); Sodium 146 mmol/L (136-145); Total Protein 6.6 g/dL (6.4-8.2); Triglyceride 132 mg/dL (<150)
[2024-11-18 17:20] LABS: C-Reactive Protein < 0.50 mg/dL (<or=0.5)
== END 2024-11-18 16:10 | disposition home or self-care (01) ==
LOC: LBN 16:09
PROVIDERS: PCP Nurse Practitioner Family; Visit Provider Family Medicine
DX: L28.1 Prurigo nodularis (principal); Z13.6 Encounter for screening for cardiovascular disorders; I10 Essential (primary) hypertension
CPT/HCPCS: 80053; 80061; 85652; 85025; 86140

== ENCOUNTER 2024-12-10 12:48 | Outpatient (REF) | payer MEDICARE, BC, SELFPAY | END 2024-12-10 12:49 | disposition home or self-care (01) | LOC: LBN 12:48 | PROVIDERS: PCP Nurse Practitioner Family; Visit Provider Physician Assistant | DX: L98.9 Disorder of the skin and subcutaneous tissue, unspecified (principal) | CPT/HCPCS: 87077; 87070; 87186; 87205 ==

== ENCOUNTER 2024-12-11 10:00 | Outpatient (CLI) | payer MEDICARE, BC, SELFPAY ==
--- NOTE | 2024-12-11 09:45 | DI.RAD_ITS ---
Exam(s) XR KNEE LT 3V AP,LAT,FANTASMA EXAM: XR KNEE LT 3V AP,LAT,FANTASMA CLINICAL HISTORY: LEFT KNEE PAIN. TECHNIQUE: 2D digital imaging was performed. Three views. COMPARISON: CR LEFT KNEE LIMITED 1 OR 2 VIEWS from 10/18/2017 CR XR KNEE LT 2V AP,LAT from 06/10/2020 FINDINGS: BONES: There is a comminuted fracture of the patella which is of indeterminate age. There is mild s eparation of fracture fragments. The distal femur and proximal tibia appear intact. There has been no change in the alignment of the total knee prosthesis. There are no abnormal surrounding lucencies . No bony destructive lesion is seen. JOINTS: The knee is normally aligned. No joint effusion is seen. SOFT TISSUE: Normal. IMPRESSION: Comminuted patellar fracture of indeterminate age. DATA REPOSITORY: RADIATION DOSE DELIVERED:
== END 2024-12-11 10:01 | disposition home or self-care (01) ==
LOC: DIORS 10:01
PROVIDERS: PCP Nurse Practitioner Family; Referring Provider Family Medicine; Visit Provider Student in an Organized Health Care Education/Training Program
DX: T84.84XA Pain due to internal orthopedic prosthetic devices, implants and grafts, initial encounter (principal)
CPT/HCPCS: 99214; 73562

== ENCOUNTER 2024-12-21 05:27 | Emergency (ER) | payer MEDICARE, BC, SELFPAY ==
[2024-12-21 05:30] VITALS: BP 220/98; PULSE 70; RESP 18; TEMP 36.6; O2SAT 98
--- NOTE | 2024-12-21 05:37 | W.ED.GENAD ---
Discharge Plan Disposition Patient Disposition: Home Condition: Good Discharge Details Clinical Impression: UTI (urinary tract infection) Primary Care Provider: Max Carbone ED Provider: Dimas Haley Meds and New Rx's Prescriptions: New cefpodoxime 200 mg tablet 200 mg PO BID Qty: 14 0RF Rx Instructions: must administer with a meal/food Continued estradiol [Vagifem] 10 mcg tablet 10 mcg vaginal .Twice weekly 90 Days Qty: 30 3RF acetaminophen 500 mg tablet 1,000 mg PO TID PRN (Reason: pain) donepezil 10 mg tablet 10 mg PO QHS Qty: 90 3RF losartan 50 mg tablet 50 mg PO DAILY Qty: 90 3RF atorvastatin 40 mg tablet 40 mg PO QHS Qty: 90 3RF triamcinolone acetonide 0.1 % ointment 1 applic topical BID 14 Days Qty: 15 4RF ibuprofen 600 mg tablet 600 mg PO TID PRN (Reason: pain) Qty: 90 0RF Discharge Instructions Instructions: Urinary Tract Infection, Adult ED Additional Instructions: You were seen in the ED for low back pain and blood in your urine which appears to be related to a urinary tract infection. Your laboratory studies and CT scan are otherwise reassuring. You have been given a dose of IV antibiotics here this morning. A prescription for antibiotic has been sent to pharmacy which you should picker/puller today and begin taking Sunday morning. Contact your primary care physician for follow-up. Return to ED for any significantly worsening pain, weakness, persistent spiking fevers, persistent vomiting, any other concerns. Referrals: Max Carbone, [facility]AM[facility] INSPECTOR [Primary Care Provider] - [facility] General Mode of arrival: ambulatory. Date/Time Provider Initiated Documentation: 12/21/24 05:31. Limitations to Documentation: no limitations. Information obtained by: patient and RN notes reviewed. HPI Narrative: Patient presents to ED with complaint of blood in her urine and some low back pain. Patient was fine when she went to bed last night. She has developed some low back pain which she describes as bilateral and just above the waist. She is now having blood in her urine as well. She does have a history of kidney stones 10 to 15 years ago. She is not having any abdominal pain or vomiting. She denies any fevers or chills. Related Data Home Medications ?Medication ?Instructions ?Recorded ?Confirmed ibuprofen 600 mg tablet 600 mg PO TID PRN pain #90 tabs 05/23/23 12/21/24 acetaminophen 500 mg tablet 1,000 mg PO TID PRN pain 01/11/24 12/21/24 triamcinolone acetonide 0.1 % 1 applic topical BID 2 weeks #15 04/02/24 12/21/24 topical ointment grams atorvastatin 40 mg tablet 40 mg PO QHS #90 tabs 06/27/24 12/21/24 donepezil 10 mg tablet 10 mg PO QHS #90 tabs 06/27/24 12/21/24 losartan 50 mg tablet 50 mg PO DAILY #90 tabs 06/27/24 12/21/24 estradiol 10 mcg vaginal tablet 10 mcg vaginal .Twice weekly 3 11/07/24 12/21/24 (Vagifem) months #30 tabs cefpodoxime 200 mg tablet 200 mg PO BID #14 tabs 12/21/24 Previous Rx's ?Medication ?Instructions ?Recorded ibuprofen 600 mg tablet 600 mg PO TID PRN pain #90 tabs 05/23/23 triamcinolone acetonide 0.1 % 1 applic topical BID 2 weeks #15 04/02/24 topical ointment grams atorvastatin 40 mg tablet 40 mg PO QHS #90 tabs 06/27/24 donepezil 10 mg tablet 10 mg PO QHS #90 tabs 06/27/24 losartan 50 mg tablet 50 mg PO DAILY #90 tabs 06/27/24 estradiol 10 mcg vaginal tablet 10 mcg vaginal .Twice weekly 3 11/07/24 (Vagifem) months #30 tabs cefpodoxime 200 mg tablet 200 mg PO BID #14 tabs 12/21/24 Allergies Allergy/AdvReac Type Severity Reaction Status Date / Time adhesive Allergy Severe Other (See Verified 12/21/24 05:35 Comment) Penicillins Allergy Severe Other (See Verified 12/21/24 05:35 Comment) Sulfa (Sulfonamide Allergy Mild Other (See Verified 12/21/24 05:35 Antibiotics) Comment) felodipine AdvReac daily Verified 12/21/24 05:35 h/a's and upset stomach General Stated Complaint: Urinary SARAHY: 3 Exam Narrative Exam Narrative: Const: Obese elderly female in NAD. VS per triage. HEENT: NC/AT. Normal facial exam. Neck: Supple. Trachea midline. Lungs: Normal respiratory effort. GI: Soft/ND/NT. Back: No CVAT. Neuro: A+O x 3. Normal speech, mentation. Cranial nerves II - XII grossly intact. No gross motor or sensory deficit. Course Vital Signs Vital signs: Vital Signs Temperature 97.8 F 12/21/24 05:30 Pulse 70 12/21/24 05:30 Respiratory Rate 18 12/21/24 05:30 Blood Pressure 220/98 H 12/21/24 05:30 Pulse Oximetry 98 12/21/24 05:30 Temperature 97.8 F 12/21/24 05:30 Temperature Source Oral 12/21/24 05:30 Pulse 70 12/21/24 05:30 Respiratory Rate 18 12/21/24 05:30 Blood Pressure 220/98 H 12/21/24 05:30 Pulse Oximetry 98 12/21/24 05:30 Pain Level 0 12/21/24 05:30 Medical Decision Making Patient presenting to ED with bilateral low back pain and gross hematuria onset overnight. She has no CVAT. She is afebrile and looks well. Abdomen is benign. She does report a history of kidney stones but given bilateral low back pain this seems unlikely. She is comfortable at this time. Urinalysis has been sent. IV placed, laboratory studies sent. Will obtain CT of the abdomen pelvis to evaluate for any urologic pathology. Patient's white count is normal. Her kidney function is baseline. Her electrolytes are normal. Urinalysis is nitrite positive with greater than 50 red cells per high-powered field otherwise micro not reported. Her CT scan is come back as no acute process and specifically no evidence of obstruction or stones. Hematuria would appear to be related to UTI. She has received a gram of ceftriaxone. She otherwise looks well. Will plan discharge on antibiotics with follow-up with her primary care. Return precautions discussed. Lab Data Lab results reviewed: Yes I reviewed the patient's lab results. Lab results narrative: see [facility] All Active Problems (Updated 12/21/24 @ 07:02 by Dimas Haley MD) UTI (urinary tract infection) (Acute) Lipoma of anterior chest wall (Acute) Atrophic vulva (Acute) Hand pain (Acute) Yeast dermatitis (Acute) Pain in left foot (Acute) Plantar verruca (Acute) Dementia (Chronic) SLUMS 01/2024 Prurigo nodularis (Acute) Memory loss (Acute) Depression, major, single episode, mild (Acute) Chronic vulvitis (Acute) Instability of internal left knee prosthesis (Acute) Chronic neck pain (Chronic) BILL (obstructive sleep apnea) (Chronic) stopped using CPAP in 2020 due to mouth burn Left bundle branch block (LBBB) on electrocardiography (Acute) Lumbar spinal stenosis (Acute) Ileostomy in place (Acute) Lichen sclerosus (Acute) 2018. Rx with topical steroid cream. 12/2020. Stopped steroid cream. Began vaginal E2. Primary osteoarthritis of both hands (Acute 06/15/15) Medical History Chronic kidney disease, stage 3 11/2021-Cr-1.5 GERD (gastroesophageal reflux disease) Obesity Essential hypertension (07/07/13) History of PSVT (paroxysmal supraventricular tachycardia) (2019) normal echo Cholesteatoma 12/2021, followed by ENT at [facility] [place]; pending surgery 06/27/2022. Pulmonary nodule (~01/2020) stable in 2021; first found 2019. No further testing. Ulcerative colitis colectomy Sensorineural hearing loss, bilateral (03/27/14) Surgical History Kidney stone (06/21/03) STENT PLACED S/P ear surgery (06/2022) for cholesteatoma History of ileostomy History of total colectomy Status post laparoscopic hysterectomy Status post vein stripping History of total left knee replacement (TKR) TKA: 1994, tibial revision 2004. History of total right knee replacement (TKR) TKA: 1996, complete revision 2009. Family History Brother , age 84 Old age Sister No problems noted. Mother Murder Father Colon cancer Daughter No problems noted. Son No problems noted. Social History Smoking/Tobacco Use Status: Never Second Hand Exposure: No Smoking risk assessment performed?: Yes Alcohol Intake: never Drug use: Never Substance use type: does not use Adopted: No Caregiver/Support person: No Household members: spouse Housing: house Number of Children: 2 number of grandchildren: 4 Communication Needs: None Education Level: college Details: 4 years+ Do you need help understanding health information?: Rarely current occupation: Retired - [employer] 33yrs. Pets and animals: No Sexually active: Yes Do you think of yourself as: straight/heterosexual Current gender identity: female What is your relationship status?: How often do you talk on the phone with friends or family?: once per week How often do you get together with friends or relatives?: once per week How often do you attend shinto or mormon services?: 4 or more times per year Do you belong to any clubs or organized social groups?: no Panel score (0-1 are the most socially isolated patients): 2 What type of physical activity do you participate in: none Duration: decline to answer Frequency: does not exercise Alondra/Anglican: Baptism Special alondra needs: No Seatbelt use: always Drive intox or ride w/intox 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
--- NOTE | 2024-12-21 05:45 | DI.CT_ITS ---
Exam(s) CT ABDOMEN PELVIS W EXAM: CT ABDOMEN PELVIS W CLINICAL HISTORY: gross hematuria, low back pain. TECHNIQUE: Imaging Protocol: Axial computed tomography images with coronal and sagittal reformatted images were created and reviewed CONTRAST MATERIAL: Intravenous: Omnipaque-350 100cc Oral: None COMPARISON: CT CT ABDOMEN PELVIS W from 10/02/[address] CHEST PE CTA from 02/08/2020 FINDINGS: VISUALIZED LUNG BASES: No nodules nor pleural effusions evident. ABDOMEN: GI: There has been prior colectomy and there is right lower quadrant ileostomy which appears uncompli cated. The rectal stump appears thickened with a small amount of adjacent fluid, more so than previo us. LIVER: There are no focal hepatic lesions evident. No dilated intrahepatic ducts. GALLBLADDER/BILIARY: No obvious gallbladder pathology. CBD is not dilated. PANCREAS: No evidence of pancreatic mass nor dilatation of the pancreatic duct. SPLEEN: Spleen is not enlarged. No obvious intrasplenic lesions. Splenic and portal veins are paten t. ADRENALS: There is a tiny nodule in the right adrenal gland measuring 7 x 6 mm. This is unchanged fr om 2019 and probably a tiny incidental adenoma. No new adrenal findings. KIDNEYS:No cysts evident. No solid renal masses. No calculi nor hydronephrosis.. ABDOMINAL AORTA: Abdominal aorta is calcified but not enlarged. Iliac arteries are calcified but not enlarged. LYMPH NODES:There is no retroperitoneal nor paraaortic adenopathy. ABDOMINAL WALL: No evidence of significant new anterior abdominal wall nor inguinal hernia. GI: There is no evidence of bowel obstruction, free air, nor abscess. PELVIS: GI: No evidence of appendicitis.No evidence of sigmoid diverticulitis. LYMPH NODES: There is no intrapelvic nor inguinal adenopathy. REPRODUCTIVE: Uterus is surgically absent. Pelvic floor weakening again noted, unchanged. URINARY BLADDER: No calculi nor obvious masses evident OSSEOUS: No fractures nor listhesis. Multilevel chronic degenerative disc disease. IMPRESSION: 1. Compared to the CT scan of 2019 there is again noted evidence of prior colectomy and right-sided i leostomy which appears intact. There is no evidence of bowel obstruction nor free air. 2. The rectal stump appears slightly thickened and there is a small amount of fluid adjacent 2 wit, s lightly more so than previous. This presacral fluid measures 3 cm craniocaudal by 3 cm wide by 2.5 c m AP. There are no gas bubbles in this region. No fluid elsewhere in the abdomen pelvis. 3. No evidence of bowel obstruction. 4. Stable tiny adenoma in the right adrenal gland paired Preliminary virtual Radiology report was reviewed. RADIATION DOSE DELIVERED: 946.39mGy.cm Total DLP DATA REPOSITORY: All CT scans at this facility are submitted to the National Radiology Data Registry (NRDR) Dose Index Registry (DIR) with the [employer] (ACR). RADIATION OPTIMIZATION: All CT scans at this facility use at least one of these dose optimization te chniques: automated exposure control; mA and/or kV adjustment per patient size (includes targeted exa ms where dose is matched to clinical indication); or iterative reconstruction.
[2024-12-21 05:53] LABS: Bilirubin Small (Negative); Blood Large (Negative); Clarity Cloudy (Clear); Glucose Negative (Negative); Ketones Trace mg/dL (Negative); Leukocyte Esterase Trace (Negative); Nitrite Positive (Negative); pH 5.5 (5-8)
[2024-12-21 05:57] LABS: Abs Immature Grans 0.05 10^3/uL (0.0-0.06); Absolute Basophil Count 0.03 10^3/uL (0.0-0.2); Absolute Eosinophil Count 0.27 10^3/uL (0.0-0.7); Absolute Lymphocyte Count 2.04 10^3/uL (1.2-3.4); Absolute Monocyte Count 0.64 10^3/uL (0.1-0.8); Absolute Neutrophil Count 4.08 10^3/uL (1.2-6.7); Basophils % 0.4 %; Eosinophils % 3.8 %; HCT 42.9 % (36.0-46.0); Immature Grans % 0.7 %; Lymphocytes % 28.7 %; MCH 29.4 pg (27.0-33.0); MCHC 32.6 % (32.0-36.0); MCV 90 fL (80-95); MPV 9.2 fL (8.0-11.0); Neutrophils % 57.4 %; Platelet Count 149 10^3/uL (130-400); RBC 4.76 10^6/uL (3.93-5.22); RDW 13.9 % (11.7-14.6); RDW-SD 46.1 fL; WBC 7.11 10^3/uL (4.4-10.8)
[2024-12-21 06:03] LABS: C & S Indicated? No; RBC >50 HPF (0-2)
[2024-12-21 06:06] LABS: Anion Gap 10.8 mmol/L (3-11); BUN 28 mg/dL (7-18); CO2 26.2 mmol/L (21.0-32.0); CREATININE 1.4 mg/dL (0.55-1.02); Calcium 9.3 mg/dL (8.5-10.1); Chloride 104 mmol/L (98-107); Estimated GFR 38.51 (mL/min/1.73m2); Glucose 103 mg/dL (74-106); Potassium 4.3 mmol/L (3.5-5.1); Sodium 141 mmol/L (136-145)
[2024-12-21] MEDS: cefTRIAXone 1 GM/50 ML BAG IVPB (06:09)
[2024-12-21] MEDS: Normal Saline 500 ML IV (06:09)
[2024-12-21] MEDS: Normal Saline - Diluent 50 ML VIAL IJ (06:35)
[2024-12-21] MEDS: Omnipaque 350 MG/ML 100 ML BTL IJ (06:36)
--- NOTE | 2024-12-21 06:54 | DI.VRAD_ITS ---
PROCEDURE INFORMATION: Exam: CT Abdomen And Pelvis With Contrast Exam date and time: 12/21/2024 6:32 AM Age: 79 years old Clinical indication: Other: Gross hematuria, low back pain; Prior surgery; Surgery date: 6+ months; Surgery type: Ho kidney stones removed, hysterectomy. Ho ileostomy, total colectomy TECHNIQUE: Imaging protocol: Computed tomography of the abdomen and pelvis with contrast. Contrast material: OMNI 350; Contrast volume: 100 ml; Contrast route: INTRAVENOUS (IV); COMPARISON: CT ABDOMEN PELVIS W 10/02/2018 8:26 PM FINDINGS: Limitations: Mild motion artifact. Coronary arteries: Coronary artery calcifications. Diaphragm: Small hiatal hernia. Liver: No focal hepatic lesion identified. Gallbladder and biliary ducts: No radiodense gallbladder calculi seen. Pancreas: No CT evidence for acute pancreatitis. Spleen: No splenomegaly. Adrenal glands: Nodular adrenal thickening. Kidneys and ureters: Scarring/lobulations in the kidneys. Stomach and bowel: Right lower quadrant ostomy. No intestinal obstruction is evident. Rectal stump appears thickened with small amount of adjacent fluid, unchanged. Appendix: No evidence of appendicitis. Intraperitoneal space: No free air. Vasculature: Arterial calcifications. Lymph nodes: Nonspecific mesenteric and retroperitoneal nodes. Urinary bladder: No acute findings. Reproductive: Uterus absent. Bones/joints: No pertinent acute abnormality seen. Soft tissues: Pelvic floor laxity. Fat containing ventral hernias. IMPRESSION: 1. No acute findings to explain reported symptoms. 2. Nonacute findings as outlined above. Dictated and Authenticated by: Tasha Llanos MD. Orderin Tera Cochran MD
[2024-12-21 07:04] VITALS: BP 151/63; PULSE 64; RESP 16; TEMP 36.4; O2SAT 97
== END 2024-12-21 07:17 | disposition home or self-care (01) ==
PROVIDERS: Emergency Provider Emergency Medicine; PCP Nurse Practitioner Family
DX: N39.0 Urinary tract infection, site not specified (principal); M54.50 Low back pain, unspecified
CPT/HCPCS: 36415; 80048; 96365; 99285; 74177; 81003; 81015; 85025; 99284; J0696; J3490

== ENCOUNTER 2024-12-31 19:20 | Outpatient (REF) | payer MEDICARE, BC, SELFPAY ==
[2024-12-31 21:46] LABS: Abs Immature Grans 0.02 10^3/uL (0.0-0.06); Absolute Basophil Count 0.05 10^3/uL (0.0-0.2); Absolute Eosinophil Count 0.19 10^3/uL (0.0-0.7); Absolute Monocyte Count 0.52 10^3/uL (0.1-0.8); Absolute Neutrophil Count 3.21 10^3/uL (1.2-6.7); Basophils % 0.9 %; Eosinophils % 3.3 %; HGB 13.7 g/dL (11.2-15.7); Immature Grans % 0.4 %; Lymphocytes % 29.9 %; MCHC 33.4 % (32.0-36.0); MCV 90 fL (80-95); MPV 9.8 fL (8.0-11.0); Monocytes % 9.1 %; Neutrophils % 56.4 %; Platelet Count 175 10^3/uL (130-400); RBC 4.57 10^6/uL (3.93-5.22); RDW 13.6 % (11.7-14.6); RDW-SD 44.6 fL; WBC 5.69 10^3/uL (4.4-10.8)
[2024-12-31 21:50] LABS: Bilirubin Negative (Negative); Blood Large (Negative); Clarity Cloudy (Clear); Glucose Negative (Negative); Ketones Negative (Negative); Leukocyte Esterase Negative (Negative); Nitrite Negative (Negative); Urobilinogen 0.2 mg/dL (Up to 0.2); pH 5.5 (5-8)
[2024-12-31 22:03] LABS: BUN 33 mg/dL (7-18); CREATININE 1.3 mg/dL (0.55-1.02); Calcium 9.3 mg/dL (8.5-10.1); Chloride 104 mmol/L (98-107); Estimated GFR 42.09 (mL/min/1.73m2); Glucose 102 mg/dL (74-106); Potassium 4.8 mmol/L (3.5-5.1); Sodium 139 mmol/L (136-145)
[2024-12-31 22:30] LABS: C & S Indicated? No; RBC >50 HPF (0-2)
== END 2024-12-31 19:21 | disposition home or self-care (01) ==
LOC: LBN 19:20
PROVIDERS: PCP Nurse Practitioner Family; Visit Provider Nurse Practitioner Family
DX: R31.9 Hematuria, unspecified (principal); R39.9 Unspecified symptoms and signs involving the genitourinary system
CPT/HCPCS: 80048; 81003; 81015; 85025

== ENCOUNTER 2025-01-07 02:05 | Outpatient (CLI) | payer MEDICARE, BC, SELFPAY ==
--- NOTE | 2025-01-07 07:15 | DI.NM_ITS ---
Exam(s) NM BONE SCAN 3 PHASE EXAM: NM BONE SCAN 3 PHASE CLINICAL HISTORY: PAIN, ?LOOSENING,T84.84xa. TECHNIQUE: Injected Dose: 25 mCi Tc-99m MDP COMPARISON: CR XR KNEE LT 3V AP,LAT,FANTASMA from 12/11/[address] LOWER EXTREMITY LT WO from 01/07/2025 FINDINGS: Perfusion: Symmetric. Blood Pool: Mildly increased activity around the left patella. Delayed: Increased activity involving the left patella. An old comminuted patellar fracture was noted on prior exams. Increased activity is also seen in the lateral aspect of the distal femur adjacent to the prosthesis. A cystic area is noted on the CT examination. Mildly increased activity is seen in the proximal tibia, below the tibial component of the prosthesis. Mildly increased activity is seen in the right knee, around the prosthesis. There is also increased activity in both feet which could be secondary to degenerative changes. Mildly increased activity is noted in the lumbar spine, presumably degenerative. The there is mildly increased activity in the right mastoid. The patient has had previous surgery in this area. IMPRESSION: 1. Increased activity in the left patella which may be secondary to the previously noted fracture. 2. Increased activity in the lateral femoral condyle. This could be secondary to loosening versus cystic area noted on CT. 3. Mildly increased activity in the tibial plateau may be secondary to loosening or altered weight-bearing. DATA REPOSITORY:
--- NOTE | 2025-01-07 07:15 | DI.CT_ITS ---
Exam(s) CT LOWER EXTREMITY LT WO EXAM: CT LOWER EXTREMITY LT WO CLINICAL HISTORY: PAIN, ? LOOSENING,T84.84xa. TECHNIQUE: Imaging Protocol: Axial computed tomography images with coronal and sagittal reformatted images were created and reviewed. COMPARISON: CR KNEES BILAT AP LATERALS from 09/28/2016 CR LEFT KNEE LIMITED 1 OR 2 VIEWS from 10/18/2017 CR XR KNEE LT 3V AP,LAT,FANTASMA from 12/11/2024 FINDINGS: There is artifact from the patient's left total knee arthroplasty. Bones: There is a comminuted fracture of the patella. The majority of the fracture fragments appear well corticated suggesting this is an old fracture. The fracture is a nonunited. No acute fracture is identified. There is some lucency at the posterior and medial aspect of the interface between the prosthesis and the proximal tibia. Within the limits of the examination no other suspicious lucencies are seen around the orthopedic hardware. No cellulitic or osteomyelitic changes are identified. There is a joint effusion present. It is small to moderate in size. There is a osseous density in the dependent portion of the fluid laterally which may represent a loose body. Soft Tissues: Atherosclerotic calcification is present. IMPRESSION: 1. Left total knee arthroplasty. Lucency at the interface between the prosthesis and the proximal tibia posterior medially. This may represent loosening. 2. Small to moderate size joint effusion. 3. Osseous density in the dependent portion of the joint which may represent a loose body. 4. Chronic appearing comminuted patellar fracture. RADIATION DOSE DELIVERED: 248.53mGy.cm Total DLP 248.53mGy.cm Total DLP DATA REPOSITORY: All CT scans at this facility are submitted to the National Radiology Data Registry (NRDR) Dose Index Registry (DIR) with the [employer] ([employer]). RADIATION OPTIMIZATION: All CT scans at this facility use at least one of these dose optimization techniques: automated exposure control; mA and/or kV adjustment per patient size (includes targeted exams where dose is matched to clinical indication); or iterative reconstruction.
== END 2025-01-07 02:25 ==
LOC: DI 02:05
PROVIDERS: PCP Nurse Practitioner Family; Visit Provider Student in an Organized Health Care Education/Training Program
DX: T84.84XA Pain due to internal orthopedic prosthetic devices, implants and grafts, initial encounter (principal); Z96.652 Presence of left artificial knee joint
CPT/HCPCS: 73700; 78315

== ENCOUNTER → 2025-01-19 14:08 | Outpatient (BNVA) | payer MEDICARE, BC, SELFPAY | PROVIDERS: PCP Nurse Practitioner Family; Referring Provider Nurse Practitioner Family; Visit Provider Student in an Organized Health Care Education/Training Program | DX: Z96.652 Presence of left artificial knee joint (principal); M25.362 Other instability, left knee; E66.9 Obesity, unspecified | CPT/HCPCS: 99214 ==

== ENCOUNTER 2025-04-06 19:44 | Outpatient (REF) | payer MEDICARE, BC, SELFPAY ==
[2025-04-06 19:58] LABS: ESR 17 mm/hr (0-30)
[2025-04-06 20:07] LABS: C-Reactive Protein < 0.50 mg/dL (<or=0.5)
[2025-04-08 10:55] LABS: Lyme Ab w Rflx to Lyme Confirm Negative (Negative)
[2025-04-10 19:48] LABS: B. miyamotoi PCR Negative (Negative); Babesia divergens/MO-1 Negative (Negative); Ehrlichia muris eauclairensis Negative (Negative)
== END 2025-04-06 19:45 | disposition home or self-care (01) ==
LOC: LBN 19:44
PROVIDERS: PCP Nurse Practitioner Family; Visit Provider Nurse Practitioner Family
DX: M25.50 Pain in unspecified joint (principal)
CPT/HCPCS: 85652; 86200; 87798; 86038; 86140; 86618